=== PATIENT | male | born 1940 | race Caucasian/White ===

== ENCOUNTER 2017-02-13 09:20 | Outpatient (CLI) ==
[2015-07-19 13:55] VITALS: BMI 25.8
--- NOTE | 2017-02-13 10:44 | RS.MODBRM ---
Subjective Number of treatment sessions: 1 Date of Evaluation: 02/13/17 Date of Onset/Injury/Change in Status: 02/06/17 Surgery Performed?: No Treatment Diagnosis: Dysphagia Current Level of Function: The patient was referred for a modified barium swallow study due to increased difficulty swallowing. The patient reported that difficulty is occassional and is unable to discern if related to liquids or solids. The patient also reported that at times he has difficulty swallowing medications. The patient reports no weight loss or ability to maximize intake orally. Current Diet: Regular solids with thin liquids. Current Subjective/complaints:: The patient reports increased difficulty swallowing at times although unable to identify specific consistencies. Medical History Comments:: PMH is remarkable for GERD (although he stated that he does not currently take medication for treatment), HTN, Dyslipidemia, CVA, COPD, CHF Hx Home Medications: Crestor, Hydrocodone-acetaminophen, Tramadol, Aspirin Patient's Goals: To consume the highest level of diet without difficulty in order to optimize hydration/nutrition. Food Presented Thin Liquid: cup (Patient demonstrated swallow that was within functional limits with no aspiration or penetration noted. ) [place] Liquid: spoon (Not tested.) Honey Liquid: spoon (Not tested.) Pureed Solid: 1/2 teaspoon (The patient demonstrated swallow that is within functional limits. No aspiration or penetration noted. ) Cubed Soft Fruit: 1/2 teaspoon (Patient demonstrated swallow that was within functional limits. No aspiration or penetration noted. ) Other:: [place]-pt demonstrated penetration although cleared with double swallow Oral Phase - Oral Phase Labial Closure: WFL Bolus Formation: WFL Mastication: WFL Lingual Movement: WFL A/P Propulsion: WFL Premature Vallecular Pooling: None Oral Residue: Scant (The patient's oral phase is within functional limits. The patient is essentially edentulous and reports difficulty chewing at times but overall strength and ROM is within functional limits.) Pharyngeal Phase Base of Tongue: WFL Epiglottic Movement: WFL Laryngeal Excursion: WFL (The patient demonstrated 1 episode of penetration although cleared independently with double swallow. No aspiration observed throughout testing.) Vallecular Residue: None Pyriform Residue: None Summary and Recommendations - Recommendations PO Diet: Thin Liquids Comments:: The patient was referred for modified barium swallow study due to increased difficulty swallowing. The patient's oral [facility] exam revealed the patient to have strength and ROM that is within functional limits. It should be noted that the patient is essentially edentulous although he is able to adequately masticate and manipulate all consistencies tested. Throughout testing the patient did not demonstrate aspiration; however, did demonstrate 1 episode of penetration although cleared with independent double swallow. The patient's swallow abilities are safe to resume regular solids with thin liquids. The patient was educated on laryngeal strengthening exercises in order to maintain current strength and ROM. Exercises included [place], Shaker, and pushing from armed chair. The patient was also educated that the times when difficulty swallowing medications is noted he may try to put them in jelly to aid in swallowing. Further Therapy Indicated?: No Functional Reporting G Codes: [id number] Swallowing Severity Impairment Rationale: Swallow abilities at the time of this initial therapy encounter is documented as within functional limits
--- NOTE | 2017-02-13 10:45 | DI ---
EXAM: Modified barium swallow. History: Difficulty swallowing. Technique: Lateral video fluoroscopy was performed in conjunction with speech therapy using multiple consistencies to evaluate swallowing function. Findings / impression: No aspiration was observed. Penetration was observed with solid foods and th in liquids. Postsurgical changes of the cervical spine. Please see dedicated speech pathology repor t for additional details.
== END 2017-02-13 09:21 | disposition home or self-care (01) ==
LOC: RAD 09:20
PROVIDERS: ATTEND Internal Medicine
DX: R13.10 Dysphagia, unspecified (principal)

== ENCOUNTER 2017-09-21 16:57 | Emergency (ER) | payer OTHER ==
[2017-09-21 17:07] VITALS: BP 151/75; TEMP 98.5; BMI 26.3
[2017-09-21] MEDS ORDERED: SODIUM CHLORIDE 1,000 ML IV STA (17:13)
[2017-09-21] MEDS ORDERED: ZOFRAN 4 MG/2 ML IVP STA (17:13)
[2017-09-21] MEDS ORDERED: PROTONIX IV IVP STA (17:13)
--- NOTE | 2017-09-21 17:45 | ED.PDOC ---
General ED Provider: Dr. HARRIET WOODS-ER Chief Complaint: Nausea/Vomiting Stated Complaint: i got choked on a small piece of chicken--don been vomiting since--i dont think i have anything stuck Time Seen by Physician: 17:00 Mode of Arrival: Walk-In Information Source: Patient, Family Exam Limitations: No limitations Primary Care Provider: DANILO ROBERTSON Nursing and Triage Documentation Reviewed and Agree: Yes Reviewed sepsis parameters & appropriate labs ordered?: Yes System Inflammatory Response Syndrome: Not Applicable Sepsis Protocol: For patient's 13 years and over: Temp is 96.8 and below OR 101 and greater Pulse >90 BPM Resp >20/minute Acutely Altered Mental Status Are patient's symptoms suggestive of a new infection, such as: -Pneumonia -Skin, Soft Tissue -Endocarditis -UTI -Bone, Joint Infection -Implantable Device -Acute Abdominal Infection -Wound Infection -Meningitis -Blood Stream Catheter Infection -Unknown GI Complaint Exam - Vomiting/Diarrhea Complaint/Exam Onset/Duration: 6hrs Symptoms Are: Still present Episodes of Vomiting over last 24 Hours: 10 Episodes of Diarrhea Over Last 24 Hours: 0 Initial Severity: Mild Current Severity: Moderate Character of Vomiting: Reports: Non-bilious Aggravating: Reports: Food, Liquids Alleviating: Reports: None Associated Signs and Symptoms: Denies: Dizziness, Light-headedness, Melena, Hematemesis, Fever, Abdominal pain, Cramping Non-GI Risk Factors: Reports: None Abdominal Findings: Present: None [place] Respirations Present: No Differential Diagnoses: Cholecystitis, Cholelithiasis, Dehydration, PUD, Viral Gastroenteritis, Bacterial Gastroenteritis, Pancreatitis Review of Systems - Review Of Systems Constitutional: Reports: No symptoms Eyes: Reports: No symptoms Ears, Nose, Mouth, Throat: Reports: No symptoms Respiratory: Reports: No symptoms Cardiac: Reports: Chest pain GI: Reports: Nausea, Vomiting : Reports: No symptoms Musculoskeletal: Reports: No symptoms Skin: Reports: No symptoms Neurological: Reports: No symptoms Endocrine: Reports: No symptoms Hematologic/Lymphatic: Reports: No symptoms All Other Systems: Reviewed and Negative Past Medical History - Past Medical History Previously Healthy: No Endocrine: Reports: Dyslipidemia Cardiovascular: Reports: Hypertension Respiratory: Reports: None Hematological: Reports: None Gastrointestinal: Reports: None Genitourinary: Reports: None Neuro/Psych: Reports: CVA Musculoskeletal: Reports: None Cancer: Reports: None - Surgical History General Surgical History: Reports: Unknown - Family History Family History: Reports: Unknown - Social History Smoking Status: Former smoker Hx Substance Use: No Alcohol Screening: None Physical Exam - Physical Exam Appearance: Well-appearing, No pain distress, Well-nourished Pain Distress: Mild Eyes: GINO, EOMI, Conjunctiva clear ENT: Ears normal, Nose normal, Oropharynx normal Neck: Supple Respiratory: Airway patent, Breath sounds clear, Breath sounds equal, Respirations nonlabored Cardiovascular: RRR, Pulses normal, No rub, No murmur GI/: Soft, Nontender, No masses, Bowel sounds normal, No Organomegaly Musculoskeletal: Normal strength, ROM intact, No edema, No calf tenderness Skin: Warm, Dry, Normal color Neurological: Sensation intact, Motor intact, Reflexes intact, Cranial nerves intact, Alert, Oriented Psychiatric: Affect appropriate, Mood appropriate, Anxious Interpretation - EKG Interpretation Time of EKG #1: 17:45 Rate: Normal Rhythm: Sinus Ectopy: None [place]: NL ST Segment: Normal Interpretation: nsr Physician Notification - Case Discussed Physician Notified: dr cadet Time of Notification: 18:20 Critical Care Note - Critical Care Note Total Time (mins): 0 Course - Course Hematology/Chemistry: 09/21/17 17:26 09/21/17 17:26 Orders, Labs, Meds: Lab Review 09/21/17 09/21/17 17:26 17:26 WBC 11.19 H RBC 4.26 L Hgb 13.3 L Hct 38.6 L MCV 90.6 MCH 31.2 H MCHC 34.5 RDW Coeff of Edita 14.2 Plt Count 183 Immature Gran % (Auto) 0.3 Neut % (Auto) 67.6 Lymph % (Auto) 21.0 [place] % (Auto) 8.8 Eos % (Auto) 2.1 Baso % (Auto) 0.2 Immature Gran # (Auto) 0.0 Neut # (Auto) 7.6 H Lymph # (Auto) 2.4 [place] # (Auto) 1.0 Eos # (Auto) 0.2 Baso # (Auto) 0.0 Sodium 144 Potassium 3.9 Chloride 109 H Carbon Dioxide 26 Anion Gap 12.9 BUN 20 H Creatinine 1.48 H Estimated GFR (MDRD) 46.00 BUN/Creatinine Ratio 13.51 Glucose 134 H Calcium 10.3 H Total Bilirubin 0.4 AST 22 ALT 16 Alkaline Phosphatase 86 Total Creatine Kinase 146 CK-MB (CK-2) 1.8 CK-MB (CK-2) % 1.82962 Troponin I < 0.0100 Total Protein 7.2 Albumin 3.6 Globulin 3.6 Albumin/Globulin Ratio 1.00 Amylase 74 Lipase 10 Orders Category Date Time Status EKG-(ED ONLY) Stat CARDIO 09/21/17 17:12 Completed IV [ED IV/MEDIPORT/POWERPORT] .ONCE EMERGENCY 09/21/17 17:13 Active AMYLASE Stat LAB 09/21/17 17:26 Completed CBC W/ AUTO DIFF Stat LAB 09/21/17 17:26 Completed COMPREHENSIVE METABOLIC PANEL Stat LAB 09/21/17 17:26 Completed CREATINE KINASE Stat LAB 09/21/17 17:26 Completed LIPASE Stat LAB 09/21/17 17:26 Completed TROPONIN I Stat LAB 09/21/17 17:26 Completed 0.9 % Sodium Chloride [Saline Flush] MEDS 09/21/17 17:13 Ordered 1 syr IVF PRN PRN Glucagon,Human Recombinant [Glucagen] MEDS 09/21/17 18:04 Discontinued 1 mg IVP ONCE STA Ondansetron HCl/Pf [Zofran 4 mg/2 ml] MEDS 09/21/17 17:13 Discontinued 4 mg IVP ONCE STA Pantoprazole Sodium [Protonix IV] MEDS 09/21/17 17:13 Discontinued 40 mg IVP ONCE STA Sodium Chloride 0.9% [Sodium Chloride] 1,000 ml MEDS 09/21/17 17:[address] ABDOMEN/PELVIS WO CONTRAST Stat RADS 09/21/17 17:[address] CHEST W/O CONTRAST Stat RADS 09/21/17 17:13 Completed Medications Generic Name Dose Route Start Last Admin Trade Name Freq PRN Reason Stop Dose Admin Sodium Chloride 1 syr 09/21/17 17:13 09/21/17 17:28 Saline Flush IVF 1 syr PRN PRN Administration To flush IV Discontinued Medications Generic Name Dose Route Start Last Admin Trade Name Freq PRN Reason Stop Dose Admin Glucagon 1 mg 09/21/17 18:04 09/21/17 18:16 Glucagen IVP 09/21/17 18:05 1 mg ONCE STA Administration Sodium Chloride 1,000 mls @ 1,000 mls/hr 09/21/17 17:13 09/21/17 17:28 Sodium Chloride IV 09/21/17 18:12 1,000 mls/hr BOLUS STA Administration Ondansetron HCl 4 mg 09/21/17 17:13 09/21/17 17:28 Zofran 4 Mg/2 Ml IVP 09/21/17 17:14 4 mg ONCE STA Administration Pantoprazole Sodium 40 mg 09/21/17 17:13 09/21/17 17:28 Protonix Iv IVP 09/21/17 17:14 40 mg ONCE STA Administration despite meds he continues to have vomiting--he prefers to go to [facility] for this problem--) Vital Signs: Temp Pulse Resp BP Pulse Ox 09/21/17 16:58 98.5 F 103 H 20 151/75 H 95 Departure - Departure Time of Disposition: 18:20 Disposition: TSF SHORT-TRM HOSP Discharge Problem: [place] Qualifiers: Encounter type: initial encounter Qualified Code(s): T18.9XXA - Foreign body of alimentary tract, part unspecified, initial encounter Instructions: Esophageal Foreign Body (ED) Condition: Fair Pt referred to PMD for follow-up: Yes IPMP verified?: No Allergies/Adverse Reactions: Allergies Penicillins Adverse Reaction (Verified 09/21/17 17:06) Home Medications: Ambulatory Orders Allopurinol [Zyloprim] 300 mg PO DAILY 12/15/12 Aspirin [Aspirin EC] 325 mg PO DAILYWM 12/15/12 Lisinopril/Hydrochlorothiazide [Zestoretic 20-12.5 mg Tablet] 2 each PO DAILY Hydrocodone Bit/Acetaminophen [[place] 5-325] 1 each PO BID PRN 07/20/15 Rosuvastatin Calcium [Crestor] 10 mg PO BEDTIME 07/20/15 Transfer Form Completed: Yes Disposition Discussed With: Patient, Family
--- NOTE | 2017-09-21 17:57 | CT ---
Exam: CT chest without intravenous contrast. Comparison: Chest x-ray performed 09/29/2015. Reason for exam: Vomiting. Rule out bezor FINDINGS: No pneumothorax, pleural effusion, or focal consolidation. Air-fluid levels are seen within the esophagus with a small hiatal hernia. The heart is prominent in size. The aorta is normal in course and caliber. Atherosclerotic disease is seen within the aorta and distal arterial vasculature. Evaluation of the mediastinal lymph nodes is limited without intravenous contrast. Image interpretation is limited without intravenous contrast administration. Evaluation of the gastric contents is limited without oral contrast. Multiple hypodensities are seen within the hepatic parenchyma measuring up to 3.1 cm. The spleen, adrenal glands, and partially imaged pancreas appear grossly unremarkable. 7.2 cm right renal hypodensity is statistically a cyst. The right pulmonary artery, left pulmonary artery, and main pulmonary artery appear prominent in size although evaluation is limited by the lack of intravenous contrast. Degenerative disease is seen in the right shoulder. Operative changes are seen after anterior cervical discectomy and fusion. Degenerative disease is seen in the thoracic spine. Impression: 1. No pneumothorax, pleural effusion, or focal consolidation. 2. Air fluid levels in the esophagus with a small hiatal hernia. Imaging findings are consistent wi th reflux in the recumbent position. This finding raises consideration for aspiration during imaging . 3. Prominence of the main pulmonary artery, right pulmonary artery and left pulmonary artery incomple tely evaluated without intravenous contrast. Imaging findings raise consideration for pulmonary hype rtension. 4. Cardiomegaly. 5. Evaluation of the stomach is limited without oral contrast.
[2017-09-21] MEDS ORDERED: GLUCAGEN IVP STA (18:04)
--- NOTE | 2017-09-21 18:07 | CT ---
EXAM: CT abdomen pelvis without contrast HISTORY: Vomiting after eating chicken COMPARISON: None TECHNIQUE: CT abdomen pelvis performed without intravenous contrast. Coronal and sagittal reformatt ed images obtained. FINDINGS: Please refer to separate port CT chest regarding findings in the lower chest. No free air . No acute abnormalities of the bones. Partial fusion bilateral sacroiliac joints. Right hip arthr oplasty. Degenerative change in the spine. Evaluation organ parenchyma limited without contrast. M ultiple liver cysts and additional sub centimeter hypodensities too small to characterize. Gallbladd er appears normal. Pancreas appears normal. Spleen appears normal. Adrenals appear normal. There is a right renal cyst with minimal peripheral calcification and measuring fluid attenuation. Cyst me asures 7.0 cm. Left renal parapelvic cyst noted. No hydronephrosis or nephrolithiasis. Bladder obsc ured secondary to streak artifact from hip arthroplasty. Prostate mildly enlarged. Small fat-contai luzmaria periumbilical hernia. Small fat-containing right inguinal hernia. Fluid in the distal esophagus . Small to moderate hiatal hernia containing a nonspecific particulate/debris. No dilated loops s mall bowel. Appendix appears normal. There are diverticula in the terminal ileum and throughout the colon. Portions of the pelvis obscured secondary to streak artifact from hip arthroplasty. No lymp hadenopathy or ascites identified. Small fat-containing periumbilical hernia. Aorta normal in calibe r with mild to moderate atherosclerosis.. Scattered nonspecific mesenteric calcifications present. IMPRESSION: 1. Fluid in the distal esophagus. Small to moderate hiatal hernia containing nonspecific particulat e/debris. 2. Terminal ileal and colonic diverticulosis. 3. Bilateral renal cysts including a mildly complicated right renal cyst. Recommend correlation wit h non-emergent ultrasound. 4. Mildly enlarged prostate.
== END 2017-09-21 18:42 | disposition short-term general hospital (02) ==
LOC: ED 16:57
DX: T18.9XXA Foreign body of alimentary tract, part unspecified, initial encounter (principal); R11.2 Nausea with vomiting, unspecified; R07.9 Chest pain, unspecified; E78.5 Hyperlipidemia, unspecified; I10 Essential (primary) hypertension; Z79.899 Other long term (current) drug therapy; Z86.73 Personal history of transient ischemic attack (TIA), and cerebral infarction without residual deficits
CPT/HCPCS: 36415; 80053; 82150; 82550; 82553; 83690; 84484; 85025; 93005; 93010; 96361; 96374; 96375; 99285

== ENCOUNTER 2021-12-04 13:34 | Inpatient (IN) ==
[2021-12-04 13:49] LABS: BORDETELLA PARAPERTUSSIS (PCR) NOT DETECTED (NOT DETECT); BORDETELLA PERTUSSIS (PCR) NOT DETECTED (NOT DETECT); CHLAMYDIA PNEUMONIAE (PCR) NOT DETECTED (NOT DETECT); CORONAVIRUS 229E (PCR) NOT DETECTED (NOT DETECT); CORONAVIRUS HKU1 (PCR) NOT DETECTED (NOT DETECT); CORONAVIRUS NL63 (PCR) NOT DETECTED (NOT DETECT); CORONAVIRUS OC43 (PCR) NOT DETECTED (NOT DETECT); HUMAN METAPNEUMOVIRUS (PCR) NOT DETECTED (NOT DETECT); HUMAN RHINOVIRUS/ENTEROV (PCR) NOT DETECTED (NOT DETECT); INFLUENZA B (PCR) NOT DETECTED (NOT DETECT); MYCOPLASMA PNEUMONIAE (PCR) NOT DETECTED (NOT DETECT); PARAINFLUENZA VIRUS 1 (PCR) NOT DETECTED (NOT DETECT); PARAINFLUENZA VIRUS 2 (PCR) NOT DETECTED (NOT DETECT); PARAINFLUENZA VIRUS 3 (PCR) NOT DETECTED (NOT DETECT); PARAINFLUENZA VIRUS 4 (PCR) NOT DETECTED (NOT DETECT); RESPIRATORY SYNCYTIAL V (PCR) NOT DETECTED (NOT DETECT); SARS_COV_2 (PCR) NOT DETECTED (NOT DETECT)
[2021-12-04 14:37] LABS: ADENOVIRUS (PCR) NOT DETECTED (NOT DETECT)
[2021-12-04] MEDS ORDERED: ATROPINE SULFATE PFS IVP PRN (15:21)
[2021-12-04] MEDS ORDERED: NITROSTAT SL PRN (15:21)
[2021-12-04] MEDS ORDERED: TYLENOL PO PRN (15:21)
[2021-12-04] MEDS ORDERED: LASIX IVP ONE (15:27)
[2021-12-04 15:28] VITALS: BMI 26.9
[2021-12-04] MEDS ORDERED: DECADRON IM ONE (15:29)
[2021-12-04 15:43] LABS: BASOPHILS % (AUTO) 0.3 % (0.0-3.0); EOSINOPHILS # (AUTO) 0.1 K/ul (0.0-0.7); EOSINOPHILS % (AUTO) 2.4 % (0.0-7.0); HEMOGLOBIN 12.3 g/dl (14.0-18.0); IMMATURE GRANULOCYTE % (AUTO) 0.2 % (0.0-5.0); LYMPHOCYTES # (AUTO) 1.4 K/uL (0.60-3.4); LYMPHOCYTES % (AUTO) 23.4 (10.0-50.0); MEAN CORPUSCULAR HEMOGLOBIN 30.3 pg (27.0-31.0); MEAN CORPUSCULAR HGB CONC 32.4 (31.8-35.4); MEAN CORPUSCULAR VOLUME 93.6 fl (80.0-94.0); MONOCYTES # (AUTO) 0.5 K/uL (0.4-2.0); MONOCYTES % (AUTO) 8.6 (0-10); NEUTROPHILS # (AUTO) 3.8 K/ul (2.0-6.9); NEUTROPHILS % (AUTO) 65.1 % (42.2-75.2); PLATELET COUNT 171 10^3/uL (140-440); RDW COEFFICIENT OF VARIATION 14.8 % (11.6-14.8); RED BLOOD COUNT 4.06 10^6/ul (4.70-6.10)
[2021-12-04 15:55] LABS: ABG O2 HGB 93.9 % (95-100); ABG PH 7.45 (7.35-7.45); BEecf -1.1 (-2.0-3.0); COHb 1.8 (0.5-1.5); HCO3 22.9 (21-28); MetHb 1.2 (0-1.5); TCO2 23.9 (19-24); tHb 12.4 g/dl (11.7-17.4)
[2021-12-04 15:55] LABS: ALANINE AMINOTRANSFERASE 17.2 U/L (0-50); ALBUMIN 3.95 g/dL (3.5-5.0); ALKALINE PHOSPHATASE 89.5 U/L (56-119); ASPARTATE AMINO TRANSFERASE 24.2 U/L (17-59); BILIRUBIN,TOTAL 0.37 mg/dL (0.2-1.3); BLOOD UREA NITROGEN 17.9 mg/dL (9-20); CALCIUM 9.72 mg/dL (8.4-10.2); CARBON DIOXIDE 25.2 mmol/L (22-30.0); CHLORIDE 105.5 mmol/L (98-107); CREATINE KINASE 64.3 U/L (55-170); CREATININE 1.21 mg/dL (0.60-1.10); GLUCOSE 176.3 mg/dL (74-106); POTASSIUM 3.77 mmol/L (3.5-5.1); SODIUM 139.8 mmol/L (134.5-145); TOTAL PROTEIN 6.95 g/dL (6.3-8.2)
[2021-12-04 16:07] LABS: TROPONIN I 0.02 ng/ml (0.0000-0.120)
[2021-12-04 16:20] LABS: BILIRUBIN,URINE Negative (NEGATIVE); CLARITY,URINE Clear (CLEAR); COLOR,URINE Yellow (YELLOW); GLUCOSE, URINE (UA) Negative (NEGATIVE); KETONES,URINE Negative (NEGATIVE); LEUKOCYTE ESTERASE ,URINE Negative (NEGATIVE); NITRITE,URINE Negative (NEGATIVE); PROTEIN,URINE Negative (NEGATIVE); URINE, BLOOD Negative (NEGATIVE); UROBILINOGEN,URINE 0.2 (0.2)
[2021-12-04 16:26] LABS: THYROID STIMULATING HORMONE 1.32 uIU/L (0.465-4.68)
[2021-12-04] MEDS: JARDIANCE PO SCH (16:34)
[2021-12-04] MEDS: ZYLOPRIM PO SCH (16:35)
[2021-12-04] MEDS: NORCO 5-325 PO SCH ×2 (16:35→20:25)
--- NOTE | 2021-12-04 16:44 | DI ---
EXAM: PA and lateral views of the chest HISTORY: Shortness of breath COMPARISON: Chest x-ray 09/29/2015 FINDINGS: The cardiomediastinal silhouette is unchanged with atherosclerotic disease. There is no p neumothorax or pleural effusion. There is ground-glass in the right lung base. There is no consolid ation, nodule or mass. Lungs are hyperinflated. The osseous structures demonstrate degenerative dis ease. IMPRESSION: 1. Minimal ground-glass in the right lung base may represent small airways thickening/inflammation v ersus chronic process. 2. Hyperinflated lungs suggestive of chronic obstructive pulmonary disease.
[2021-12-04] MEDS: CRESTOR PO SCH (20:24)
[2021-12-04] MEDS: NORVASC PO SCH (20:25)
[2021-12-04] MEDS: ENTRESTO 24 MG-26 MG TABLET PO SCH (20:25)
[2021-12-04] MEDS ORDERED: LOPRESSOR PO SCH (21:00)
[2021-12-04] MEDS ORDERED: ULTRAM PO PRN (21:00)
[2021-12-04] MEDS ORDERED: NORCO 5-325 PO STA (23:28)
[2021-12-05 00:07] LABS: TROPONIN I 0.016 ng/ml (0.0000-0.120)
[2021-12-05 00:08] LABS: CREATINE KINASE 73.7 U/L (55-170)
[2021-12-05 04:56] LABS: BASOPHILS % (AUTO) 0.2 % (0.0-3.0); HEMATOCRIT 41.4 % (42.0-52.0); HEMOGLOBIN 13.5 g/dl (14.0-18.0); IMMATURE GRANULOCYTE % (AUTO) 0.4 % (0.0-5.0); LYMPHOCYTES % (AUTO) 18.3 (10.0-50.0); MEAN CORPUSCULAR HGB CONC 32.6 (31.8-35.4); MONOCYTES # (AUTO) 0.3 K/uL (0.4-2.0); MONOCYTES % (AUTO) 5.7 (0-10); NEUTROPHILS # (AUTO) 4.1 K/ul (2.0-6.9); NEUTROPHILS % (AUTO) 75.4 % (42.2-75.2); PLATELET COUNT 216 10^3/uL (140-440); RDW COEFFICIENT OF VARIATION 14.6 % (11.6-14.8); WHITE BLOOD COUNT 5.41 K/ul (4.2-10.2)
[2021-12-05 05:09] LABS: ALANINE AMINOTRANSFERASE 17.5 U/L (0-50); ALBUMIN 4.38 g/dL (3.5-5.0); ALKALINE PHOSPHATASE 96.2 U/L (56-119); ASPARTATE AMINO TRANSFERASE 24.8 U/L (17-59); BILIRUBIN,TOTAL 0.63 mg/dL (0.2-1.3); BLOOD UREA NITROGEN 17.4 mg/dL (9-20); CALCIUM 10.29 mg/dL (8.4-10.2); CARBON DIOXIDE 26.4 mmol/L (22-30.0); CHLORIDE 101.1 mmol/L (98-107); CREATININE 1.04 mg/dL (0.60-1.10); GLUCOSE 169.6 mg/dL (74-106); POTASSIUM 3.9 mmol/L (3.5-5.1); TOTAL PROTEIN 7.62 g/dL (6.3-8.2)
[2021-12-05] MEDS: LASIX TAB PO SCH (05:36)
[2021-12-05] MEDS ORDERED: LASIX IVP SCH (06:30)
--- NOTE | 2021-12-05 09:04 | PCM.PROG ---
Attending Provider: ATTENDING PROVIDER: Dr. DANILO ROBERTSON This patient is seen with Wendie Morrison, Nurse Practitioner. DATE OF SERVICE: 12/05/21 SUBJECTIVE: This 81 year old /WHITE M was hospitalized 12/04/21. Heart rate has been irregular. EKG showed possible flutter possible and possible atrial fibrillation on telemetry. Heart rate has been 90s to 110s. started Entresto yesterday. Renal function and Potassium are OK today. REVIEW OF SYSTEMS: CONSTITUTIONAL: No night sweats. No fatigue, malaise, lethargy. No fever or chills. HEENT: Eyes: No visual changes. No eye pain. No eye discharge. ENT: No runny nose. No epistaxis. No sinus pain. No odynophagia. No congestion. RESPIRATORY: No cough, no congestion. No hemoptysis. Shortness of breath. CARDIOVASCULAR: No angina symptoms. No CHF symptoms. No atypical chest pain for CAD. Palpitations. No orthopnea.. GASTROINTESTINAL: No abdominal pain. No nausea or vomiting. No diarrhea or constipation. No hematemesis. No hematochezia. GENITOURINARY: No urgency. No frequency. No dysuria. No hematuria. No obstructive symptoms. No discharge. No pain. No significant abnormal bleeding. MUSCULOSKELETAL: No musculoskeletal pain; no joint swelling. NEUROLOGICAL: Awake, alert, oriented to time, place and person. No headache. No neck pain. No syncope. No seizures. No dizziness. PSYCHIATRIC: Not anxious. No depression. No suicidal thoughts. No homicidal thoughts. SKIN: No rash. No lesions. No wounds. ENDOCRINE: No unexplained weight loss. No weight gain. HEMATOLOGIC/LYMPHATIC: No anemia. No purpura. No petechiae. No prolonged or excessive bleeding. No palpable lymph nodes. PHYSICAL EXAMINATION: GENERAL: The patient is awake, alert and oriented, sitting in bed in no distress. VITAL SIGNS: Temperature 97.8 F, Pulse 82, Respiratory Rate 16, BP 138/83, Pulse Ox 96% HEENT: Head normocephalic, atraumatic. Eyes: Extraocular muscles are intact. Pupils are equal, round and reactive to light and accommodation. Ears: No lesions. Nose appeared normal. Throat: No exudate or erythema. NECK: Supple. No JVD, no carotid bruit. No lymphadenopathy or thyromegaly. LUNGS: Clear to auscultation. Percussion note normal. Chest symmetrical. HEART: S1, S2, no S3. Grade I murmurs. Irregular heart rate. No cyanosis or clubbing. No ascites. Pulses: Dorsalis pedis and posterior tibial pulses +1 to +2 both sides. ABDOMEN: Soft. Non-tender. Bowel sounds active. No CVA tenderness. No mass felt. EXTREMITIES: Trace bilateral leg edema. Full range of motion of all extremities, equal. NEUROLOGIC: No focal deficit. Cranial nerves II through XII are grossly intact. No headache. No double vision. SKIN: Not dry. Intact. Turgor-normal. LYMPHATIC: No palpable lymph nodes/no lymphedema. MUSCULOSKELETAL: Normal joints with no swelling. Muscle tone is normal. LAB REVIEW: 12/05/21 04:35 12/05/21 04:35 12/05/21 04:35: Sodium 138.0, Potassium 3.90, Chloride 101.1, Carbon Dioxide 26.4, Anion Gap 14.40, BUN 17.4, Creatinine 1.04, Estimated GFR (MDRD) 69.00, BUN/Creatinine Ratio 16.73, Glucose 169.6 H, Calcium 10.29 H, Total Bilirubin 0.63, AST 24.8, ALT 17.5, Alkaline Phosphatase 96.2, Total Protein 7.62, Albumin 4.38, Globulin 3.24, Albumin/Globulin Ratio 1.35 12/05/21 04:35: WBC 5.41, RBC 4.50 L, Hgb 13.5 L, Hct 41.4 L, MCV 92.0, MCH 30.0, MCHC 32.6, RDW Coeff of Edita 14.6, Plt Count 216, Immature Gran % (Auto) 0.4, Neut % (Auto) 75.4 H, Lymph % (Auto) 18.3, [place] % (Auto) 5.7, Eos % (Auto) 0.0, Baso % (Auto) 0.2, Neut # (Auto) 4.1, Lymph # (Auto) 1.0, [place] # (Auto) 0.3 L, Eos # (Auto) 0.0, Baso # (Auto) 0.0, Immature Gran # (Auto) 0.0 12/04/21 23:35: Total Creatine Kinase 73.7, Troponin I 0.016 12/04/21 16:09: Urine Color Yellow, Urine Clarity Clear, Urine pH 6.0, Ur Specific [place] >=1.030, Urine Protein Negative, Urine Glucose (UA) Negative, Urine Ketones Negative, Urine Blood Negative, Urine Nitrite Negative, Urine Bilirubin Negative, Urine Urobilinogen 0.2, Ur Leukocyte Esterase Negative 12/04/21 15:35: Puncture Site Rr, Base Excess -1.1, O2 Saturation 95.0, ABG pH 7.45, ABG pCO2 33.0 L, ABG pO2 72.0 L, ABG HCO3 22.9, ABG Total CO2 23.9, Sky Test Pos, Hemoglobin 1.2, Oxyhemoglobin 93.9 L, Carboxyhemoglobin 1.8 H, Total Hemoglobin 12.4, FiO2 % 21.0 12/04/21 15:32: Sodium 139.8, Potassium 3.77, Chloride 105.5, Carbon Dioxide 25.2, Anion Gap 12.87, BUN 17.9, Creatinine 1.21 H, Estimated GFR (MDRD) 58.00, BUN/Creatinine Ratio 14.79, Glucose 176.3 H, Calcium 9.72, Total Bilirubin 0.37, AST 24.2, ALT 17.2, Alkaline Phosphatase 89.5, Total Creatine Kinase 64.3, Troponin I 0.020, Total Protein 6.95, Albumin 3.95, Globulin 3.00, Albumin/Globulin Ratio 1.31, TSH 1.320 12/04/21 15:32: Free T4 1.41 12/04/21 15:32: WBC 5.80, RBC 4.06 L, Hgb 12.3 L, Hct 38.0 L, MCV 93.6, MCH 30.3, MCHC 32.4, RDW Coeff of Edita 14.8, Plt Count 171, Immature Gran % (Auto) 0.2, Neut % (Auto) 65.1, Lymph % (Auto) 23.4, [place] % (Auto) 8.6, Eos % (Auto) 2.4, Baso % (Auto) 0.3, Neut # (Auto) 3.8, Lymph # (Auto) 1.4, [place] # (Auto) 0.5, Eos # (Auto) 0.1, Baso # (Auto) 0.0, Immature Gran # (Auto) 0.0 12/04/21 13:45: Adenovirus (PCR) Not detected, B. pertussis DNA (PCR) Not detected, B.parapertussis DNA PCR Not detected, C. pneumoniae DNA (PCR) Not detected, Coronavirus OC43 (PCR) Not detected, Coronavirus HKU1 (PCR) Not detected, Coronavirus 229E (PCR) Not detected, Coronavirus NL63 (PCR) Not detected, Human Metapneumovir PCR Not detected, Influenza Type A (PCR) Not detected, Influenza B (RT-PCR) Not detected, M. pneumoniae (PCR) Not detected, Parainfluenza 1 (PCR) Not detected, Parainfluenza 2 (PCR) Not detected, Parainfluenza 3 (PCR) Not detected, Parainfluenza 4 (PCR) Not detected, RSV (PCR) Not detected, Entero/Rhino (PCR) Not detected, SARS-CoV-2 (PCR) Not detected ASSESSMENT: Please see below. 1. Acute CHF 2. New onset arrhythmia 3. Shortness of breath PLAN: 1. Monitor I&O 2. CT of chest with and without 3. Increase Metoprolol to 50mg BID 4. 24 hour Holter Monitor after CT 5. Start Eliquis 5mg BID 6. Discontinue Aspirin 7. ProBNP 8. Daily Weights Plan and coordination of the patient's care discussed in the presence of Loading Dock Helper and nurse. SCRIBED BY: Michelet FREITAS scribed while in presence of service performed by Dr. Robertson/Wendie Morrison APRN on 12/05/21 ([id number])
--- NOTE | 2021-12-05 10:10 | HP ---
DATE OF SERVICE: 12/04/21 REASON FOR HOSPITALIZATION/HISTORY OF PRESENT ILLNESS: Lost 4 pounds. No signs or symptoms of CHF/CAD/COVID. Worsening shortness of breath/ Leg swelling, fatigue and palpitations times 2-3 weeks. PAST MEDICAL HISTORY: CHF Diabetes Mellitus type II Hypertension Dyslipidemia CVA '99 Sinus tachycardia Chronic kidney disease 2/3 Gout PAST SURGICAL HISTORY: Right hip replacement Plate in neck Hernia surgery Vasectomy REVIEW OF SYSTEMS: CONSTITUTIONAL: No fever, Fatigue. HEENT: No sinus drainage, no sore throat. RESPIRATORY: No cough, no congestion. CARDIOVASCULAR: No atypical chest pain for coronary artery disease. No angina, CHF symptoms. Palpitations and shortness of breath. GASTROINTESTINAL: No melena or abdominal pain. No GERD. GENITOURINARY: No hematuria, no prostatism, no polyuria. COMMUNITY ORGANIZATION WORKER: No blackout, Dizziness, no headache, no double vision. MUSCULOSKELETAL: Osteoarthritis pain, no joint swelling. ENDOCRINE: No weight loss, no weight gain. SKIN: Not dry, no rash. PSYCHIATRIC: Anxious, no depression, no suicidal thoughts, no homicidal thoughts. SOCIAL HISTORY: Marital Status: . Alcohol Usage: No. Tobacco Usage: No. FAMILY HISTORY: Father Mother Brother 8 Sister 3 MEDICATIONS: Metformin 500mg daily Norvasc 5mg at HS Crestor 40mg PO daily Allopurinol 300mg daily Aspirin 325mg PO daily Pitman 5-325mg BID Tramadol 500mg TID K-tab 10meq Losartan 50mg daily Lasix 20mg daily Jardiance 25mg daily Metoprolol 25mg BID ALLERGIES: Fish Oil PHYSICAL EXAMINATION: V/S: Pulse 83, blood pressure 142/78, temperature 97.8, oxygen saturation 92%. GENERAL APPEARANCE: Oriented times three. HEENT: Normal. NECK: No JVP, no bruits. RESPIRATORY: Lungs are clear. CARDIOVASCULAR: S1, S2, no S3, no murmur. Irregular. No cyanosis, clubbing. No ascites. GI/ABDOMEN: No tenderness. Bowel sounds are active. EXTREMITIES: +1 pitting edema, pulses +1, equal. COMMUNITY ORGANIZATION WORKER: Deep tendon reflexes, sensory, motor and gait all normal. RECTAL/PELVIC/PROSTATE: 01/10 (1.28) Dr. Land 12/07/. EGD 10/07. LABS: Echo showed ejection fraction 35-40%. Paradoxical septal motion. RV cavity and LA cavity enlargement. ASSESSMENT: 1. CHF 2. Shortness of breath 3. Palpitations 4. Sinus tachycardia 5. Recurrent gout 6. Chronic kidney disease 2/3 7. Polyarthritis 8. Right knee osteoarthritis 9. Esophageal dilatation 10/07 10.Right total hip replacement, [place] 11.C-spine surgery 12. Hypertension 13.Dyslipidemia 14.Left cheek basal, Dr. Sotelo 15. 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 Admit 2. Routine telemetry orders 3. IV Lasix 20mg now 4. Entresto 24-26 PO BID 5. TSH, T4 6. Amlodipine 5mg PO at HS daily 7. Crestor 40mg Po daily 8. Allopurinol 200mg PO daily 9. Pitman 5/325mg PO BID for pain 10.Tramadol 50mg PO TID for pain 11.Metoprolol 25mg PO BID 12.Lasix 20mg PO daily AM 13.Elevate legs 14.ABG today 15.Jardiance 25mg PO daily 16.1cc Decadron IM TIME SPENT: More than 70 minutes. MTDD
[2021-12-05] MEDS: ZYLOPRIM PO SCH (12:13)
[2021-12-05] MEDS: MICRO-K CAP PO SCH (12:13)
[2021-12-05] MEDS: JARDIANCE PO SCH (12:13)
[2021-12-05] MEDS: LOPRESSOR PO SCH ×2 (12:14→20:51)
[2021-12-05] MEDS: ENTRESTO 24 MG-26 MG TABLET PO SCH ×2 (12:14→20:52)
[2021-12-05] MEDS: ELIQUIS PO SCH ×2 (12:15→20:52)
[2021-12-05] MEDS: NORCO 5-325 PO SCH ×2 (12:16→20:52)
--- NOTE | 2021-12-05 12:35 | CT ---
EXAM: CT chest with and without contrast HISTORY: Shortness of breath COMPARISON: CT chest 09/21/2017 TECHNIQUE: Serial axial images of the chest were obtained after and before 100 ml of Omnipaque IV co ntrast was administered. These were obtained from the lung apices to the upper abdomen. FINDINGS: The thyroid is normal. Visualized vessels demonstrate mild atherosclerotic disease. Ther e is prominence of the pulmonary arteries. The heart is enlarged in size without pericardial effusio n. There is no mediastinal, hilar or axillary pathologically enlarged lymph nodes. There is no pneumothorax or pleural effusion. There is dependent atelectasis bilaterally. There is no consolidation, nodule or mass. The airways are patent. Limited views of the soft tissues demonstrate multiple hepatic cysts. Multiple renal cysts are pres ent. There is a small hiatal hernia. The osseous structures demonstrate degenerative change. IMPRESSION: 1. Dependent atelectasis with no acute cardiopulmonary process. 2. Hepatic cysts and renal cysts. 3. Small hiatal hernia. 4. Cardiomegaly with enlarged pulmonary arteries suggestive of pulmonary arterial hypertension. All CT scans are performed using dose optimization techniques as appropriate to the performed exam an d include at least one of the following: Automated exposure control, adjustment of the mA and/or kV according t o size, and the use of iterative reconstruction technique.
[2021-12-05] MEDS: CRESTOR PO SCH (20:52)
[2021-12-05] MEDS: NORVASC PO SCH (20:53)
[2021-12-06 05:30] LABS: BASOPHILS % (AUTO) 0.2 % (0.0-3.0); EOSINOPHILS # (AUTO) 0.1 K/ul (0.0-0.7); HEMATOCRIT 42.6 % (42.0-52.0); HEMOGLOBIN 13.7 g/dl (14.0-18.0); IMMATURE GRANULOCYTE % (AUTO) 0.4 % (0.0-5.0); LYMPHOCYTES # (AUTO) 2.4 K/uL (0.60-3.4); LYMPHOCYTES % (AUTO) 29.4 (10.0-50.0); MEAN CORPUSCULAR HEMOGLOBIN 29.8 pg (27.0-31.0); MEAN CORPUSCULAR HGB CONC 32.2 (31.8-35.4); MEAN CORPUSCULAR VOLUME 92.8 fl (80.0-94.0); MONOCYTES # (AUTO) 0.8 K/uL (0.4-2.0); MONOCYTES % (AUTO) 10.1 (0-10); NEUTROPHILS # (AUTO) 4.8 K/ul (2.0-6.9); NEUTROPHILS % (AUTO) 58.9 % (42.2-75.2); PLATELET COUNT 220 10^3/uL (140-440); RDW COEFFICIENT OF VARIATION 14.6 % (11.6-14.8); RED BLOOD COUNT 4.59 10^6/ul (4.70-6.10); WHITE BLOOD COUNT 8.22 K/ul (4.2-10.2)
[2021-12-06 05:46] LABS: ALANINE AMINOTRANSFERASE 16.9 U/L (0-50); ALBUMIN 4.05 g/dL (3.5-5.0); ALKALINE PHOSPHATASE 91.5 U/L (56-119); BILIRUBIN,TOTAL 0.52 mg/dL (0.2-1.3); BLOOD UREA NITROGEN 22.7 mg/dL (9-20); CALCIUM 9.99 mg/dL (8.4-10.2); CARBON DIOXIDE 27.8 mmol/L (22-30.0); CHLORIDE 103.4 mmol/L (98-107); CREATININE 1.21 mg/dL (0.60-1.10); POTASSIUM 3.75 mmol/L (3.5-5.1); SODIUM 139.3 mmol/L (134.5-145); TOTAL PROTEIN 7.15 g/dL (6.3-8.2)
[2021-12-06] MEDS: LASIX TAB PO SCH (05:49)
[2021-12-06] MEDS: ZYLOPRIM PO SCH (08:37)
[2021-12-06] MEDS: ENTRESTO 24 MG-26 MG TABLET PO SCH ×2 (08:37→20:19)
[2021-12-06] MEDS: LOPRESSOR PO SCH ×2 (08:38→20:19)
[2021-12-06] MEDS: ELIQUIS PO SCH ×2 (08:38→20:20)
[2021-12-06] MEDS: MICRO-K CAP PO SCH (08:38)
[2021-12-06] MEDS: JARDIANCE PO SCH (08:45)
[2021-12-06] MEDS: NORCO 5-325 PO SCH (20:19)
[2021-12-06] MEDS: NORVASC PO SCH (20:20)
[2021-12-06] MEDS: CRESTOR PO SCH (20:20)
[2021-12-07 05:14] VITALS: BP 131/76; TEMP 97.6
[2021-12-07 05:26] LABS: BASOPHILS % (AUTO) 0.3 % (0.0-3.0); EOSINOPHILS # (AUTO) 0.1 K/ul (0.0-0.7); EOSINOPHILS % (AUTO) 1.7 % (0.0-7.0); HEMATOCRIT 41.1 % (42.0-52.0); HEMOGLOBIN 13.5 g/dl (14.0-18.0); IMMATURE GRANULOCYTE % (AUTO) 0.2 % (0.0-5.0); LYMPHOCYTES # (AUTO) 2.1 K/uL (0.60-3.4); LYMPHOCYTES % (AUTO) 34.7 (10.0-50.0); MEAN CORPUSCULAR HEMOGLOBIN 30.1 pg (27.0-31.0); MEAN CORPUSCULAR HGB CONC 32.8 (31.8-35.4); MEAN CORPUSCULAR VOLUME 91.7 fl (80.0-94.0); MONOCYTES # (AUTO) 0.6 K/uL (0.4-2.0); MONOCYTES % (AUTO) 10.7 (0-10); NEUTROPHILS # (AUTO) 3.1 K/ul (2.0-6.9); NEUTROPHILS % (AUTO) 52.4 % (42.2-75.2); PLATELET COUNT 221 10^3/uL (140-440); RDW COEFFICIENT OF VARIATION 14.6 % (11.6-14.8); RED BLOOD COUNT 4.48 10^6/ul (4.70-6.10); WHITE BLOOD COUNT 5.91 K/ul (4.2-10.2)
[2021-12-07 05:44] LABS: ALANINE AMINOTRANSFERASE 13.8 U/L (0-50); ALBUMIN 3.64 g/dL (3.5-5.0); ALKALINE PHOSPHATASE 84.7 U/L (56-119); ASPARTATE AMINO TRANSFERASE 21.8 U/L (17-59); BILIRUBIN,TOTAL 0.4 mg/dL (0.2-1.3); BLOOD UREA NITROGEN 24.7 mg/dL (9-20); CALCIUM 9.62 mg/dL (8.4-10.2); CARBON DIOXIDE 25.3 mmol/L (22-30.0); CHLORIDE 106.1 mmol/L (98-107); CREATININE 1.29 mg/dL (0.60-1.10); GLUCOSE 122.6 mg/dL (74-106); POTASSIUM 3.34 mmol/L (3.5-5.1); SODIUM 139.7 mmol/L (134.5-145); TOTAL PROTEIN 6.51 g/dL (6.3-8.2)
[2021-12-07] MEDS: LASIX TAB PO SCH (05:48)
[2021-12-07] MEDS: ENTRESTO 24 MG-26 MG TABLET PO SCH (09:13)
[2021-12-07] MEDS: LOPRESSOR PO SCH (09:13)
[2021-12-07] MEDS: MICRO-K CAP PO SCH (09:13)
[2021-12-07] MEDS: ZYLOPRIM PO SCH (09:13)
[2021-12-07] MEDS: JARDIANCE PO SCH (09:14)
[2021-12-07] MEDS: ELIQUIS PO SCH (09:14)
--- NOTE | 2021-12-07 09:48 | PCM.PROG ---
Attending Provider: ATTENDING PROVIDER: Dr. DANILO ROBERTSON This patient is seen with Wendie Morrison, Nurse Practitioner. DATE OF SERVICE: 12/07/21 SUBJECTIVE: This 81 year old /WHITE M was hospitalized 12/04/21. The has been up and about in the room. Hgb is stable. She was started on Eliquis. Renal function is stable after initiation of Entresto. The patient is ready for discharge. REVIEW OF SYSTEMS: CONSTITUTIONAL: No night sweats. No fatigue, malaise, lethargy. No fever or chills. Weakness. HEENT: Eyes: No visual changes. No eye pain. No eye discharge. ENT: No runny nose. No epistaxis. No sinus pain. No odynophagia. No congestion. RESPIRATORY: No cough, no congestion. No hemoptysis. Shortness of breath. CARDIOVASCULAR: No angina symptoms. No CHF symptoms. No atypical chest pain for CAD. Palpitations. No orthopnea.. GASTROINTESTINAL: No abdominal pain. No nausea or vomiting. No diarrhea or constipation. No hematemesis. No hematochezia. GENITOURINARY: No urgency. No frequency. No dysuria. No hematuria. No obstructive symptoms. No discharge. No pain. No significant abnormal bleeding. MUSCULOSKELETAL: No musculoskeletal pain; no joint swelling. NEUROLOGICAL: Awake, alert, oriented to time, place and person. No headache. No neck pain. No syncope. No seizures. No dizziness. PSYCHIATRIC: Not anxious. No depression. No suicidal thoughts. No homicidal tho ughts. SKIN: No rash. No lesions. No wounds. ENDOCRINE: No unexplained weight loss. No weight gain. HEMATOLOGIC/LYMPHATIC: No anemia. No purpura. No petechiae. No prolonged or excessive bleeding. No palpable lymph nodes. PHYSICAL EXAMINATION: GENERAL: The patient is awake, alert and oriented, sitting in bed in no distress. VITAL SIGNS: Temperature 97.6 F, Pulse 77, Respiratory Rate 18, BP 131/76, Pulse Ox 95% HEENT: Head normocephalic, atraumatic. Eyes: Extraocular muscles are intact. Pupils are equal, round and reactive to light and accommodation. Ears: No lesions. Nose appeared normal. Throat: No exudate or erythema. NECK: Supple. No JVD, no carotid bruit. No lymphadenopathy or thyromegaly. LUNGS: Diminished breath sounds. Clear to auscultation. Percussion note normal. Chest symmetrical. HEART: Irregular heart rate. S1, S2, no S3. No murmurs. No cyanosis or clubbing. No ascites. Pulses: Dorsalis pedis and posterior tibial pulses +1 to +2 both sides. ABDOMEN: Soft. Non-tender. Bowel sounds active. No CVA tenderness. No mass felt. EXTREMITIES: No edema. Full range of motion of all extremities, equal. NEUROLOGIC: No focal deficit. Cranial nerves II through XII are grossly intact. No headache. No double vision. SKIN: Not dry. Intact. Turgor-normal. LYMPHATIC: No palpable lymph nodes/no lymphedema. MUSCULOSKELETAL: Normal joints with no swelling. Muscle tone is normal. LAB REVIEW: 12/07/21 04:58 12/07/21 04:58 12/07/21 04:58: Sodium 139.7, Potassium 3.34 L, Chloride 106.1, Carbon Dioxide 25.3, Anion Gap 11.64, BUN 24.7 H, Creatinine 1.29 H, Estimated GFR (MDRD) 54.00, BUN/Creatinine Ratio 19.14, Glucose 122.6 H, Calcium 9.62, Total Bilirubin 0.40, AST 21.8, ALT 13.8, Alkaline Phosphatase 84.7, Total Protein 6.51, Albumin 3.64, Globulin 2.87, Albumin/Globulin Ratio 1.26 12/07/21 04:58: WBC 5.91, RBC 4.48 L, Hgb 13.5 L, Hct 41.1 L, MCV 91.7, MCH 30.1, MCHC 32.8, RDW Coeff of Edita 14.6, Plt Count 221, Immature Gran % (Auto) 0.2, Neut % (Auto) 52.4, Lymph % (Auto) 34.7, [place] % (Auto) 10.7 H, Eos % (Auto) 1.7, Baso % (Auto) 0.3, Neut # (Auto) 3.1, Lymph # (Auto) 2.1, [place] # (Auto) 0.6, Eos # (Auto) 0.1, Baso # (Auto) 0.0, Immature Gran # (Auto) 0.0 ASSESSMENT: Please see below. 1. New onset atrial fibrillation 2. Acute CHF 3. COPD 3. Reduced ejection fraction 35% with akinetic septal wall PLAN: 1. Discharge home 2. Continue Entresto 24-26 BID 3. Continue Eliquis 5mg BID, risk of bleeding discussed. No NSAIDS. No aspirin 4. The patient will restart Rybelsus at home 5. Atrial fibrillation has been discussed in detail regarding risk of CVA 6. Will followup in the office next week 7. Potassium 40meq once today Plan and coordination of the patient's care discussed in the presence of Slot Technician and nurse. SCRIBED BY: Michelet FREITAS scribed while in presence of service performed by Dr. Robertson/Wendie Morrison APRN on 12/07/21 ([id number])
[2021-12-07] MEDS ORDERED: K-DUR PO ONE (10:02)
--- NOTE | 2021-12-07 10:07 | DS ---
DATE OF SERVICE: 12/07/21 FINAL DIAGNOSIS: 1. New onset atrial fibrillation 2. Acute CHF 3. COPD 3. 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 Followup appointment with Dr. Aldana's Office December 19 at 11:30. MEDICATIONS AT DISCHARGE: Hydrocodone-acetaminophen 5-325mg PO BID PRN Tramadol 50mg PO TID PRN Lasix 20mg PO QDAC Potassium chloride 10meq PO daily Rybelsus 7mg PO QDAC NEW PRESCRIPTIONS: Eliquis 5mg PO BID Entresto PO BID Allopurinol 200mg PO daily Metformin 500mg PO daily Metoprolol 50mg PO BID DISCONTINUED MEDICATIONS: Aspirin Metoprolol tartrate 25mg BID Losartan 50mg PO daily Metformin 500mg PO bid Zyloprim 300mg PO daily DIET INSTRUCTIONS: Regular. Drink plenty of fluids. ACTIVITY: Gradually resume activity as tolerated. Avoid excessive heat. Take. frequent rest periods. Keep legs elevated while resting. HOSPITAL COURSE: 81 year old white male who was a direct admit from our office. He has been experiencing shortness of breath. Recent echo showed reduced ejection fraction of 35%. Initially thought to have PVC with right bundle branch block but on Holter was found to be in atrial fib/flutter intermittently. He was started on Entresto to improve ejection fraction, started on Eliquis for CVA prevention. We increased Metoprolol for past 48 hours rate has been consistently under 100. Labs are stable. We will discharge home in stable condition and followup in the office next week. Risks of bleeding with Eliquis discussed in detail. CHF discussed in detail. TIME SPENT: More than 60 minutes. MTDD
--- NOTE | 2021-12-07 11:38 | PN ---
DATE OF SERVICE: 12/05/21 SUBJECTIVE: 81 year old white male hospitalized with congestive heart failure. The patient had shortness of breath and palpitation. The patient is in atrial flutter. The patient has lost nearly 8-10 pounds. His condition is improving with diuretic therapy. Metoprolol is going to be increased to 50mg twice a day. Condition is stable. TIME SPENT: More than 30 minutes. Plan and coordination of the patient's care discussed in the presence of nurse. CRISTEL
--- NOTE | 2021-12-11 09:01 | PN ---
12/04/21: Level 5 12/05/21: Intermediate 12/06/21: Intermediate 12/07/21: D as in discharge. MTDD
--- NOTE | 2021-12-11 09:01 | PN ---
DATE OF SERVICE: 12/07/21 SUBJECTIVE: 81 year old white male hospitalized with CHF, leg edema and palpitation and has atrial flutter/fib with varying ventricular response. The patient's hypertension is under control. CHF is under control. Education about CHF carried out. Atrial fibrillation with complications discussed. Eliquis with side effects with intracranial bleed and GI bleed discussed. The patient was seen and examined with the Nurse Practitioner. Condition is stable. TIME SPENT: More than 30 minutes. Plan and coordination of the patient's care discussed in the presence of nurse. CRISTEL
--- NOTE | 2021-12-12 07:21 | HOLTER ---
PATIENT INFORMATION AND COMMENTS Attending Physician: DR. DANILO ROBERTSON Indications: IRREGULAR HEART BEAT __ Patient Medications: ALLOPURINOL, AMLODIPINE, EMPAGLIFLOZIN, FUROSEMIDE, LOSARTAN, METFORMIN, METOPROLOL __ Pre-procedure Summary: Protocol: Standard Heart Rate Started: 12/05/2021 Minimum: 52 BPM Weight: 172 LBS Ended: 12/06/2021 Maximum: 132 BPM Height: 69" Duration: 24 HOURS Average: 83 BPM _ INTERPRETATIONS/OBSERVATIONS: 1. BASIC RHYTHM: ATRIAL FLUTTER/FIB WITH RATE 52 BPM TO 132 BPM, AVERAGE 83 BPM 2. PVC'S 1% OF BEATS SCANNED--NO V-TACH 3. NO ST-T WAVE CHANGES FROM BASELINE 4. ACTIVITY LOG NOT AVAILABLE MTDD
== END 2021-12-07 11:53 | disposition home or self-care (01) | DRG 292 ==
LOC: LAB 13:34 → MEDSURG A 15:00
PROVIDERS: ADMIT Internal Medicine; ATTEND Internal Medicine
DX: Z79.899 Other long term (current) drug therapy; J44.9 Chronic obstructive pulmonary disease, unspecified; M10.9 Gout, unspecified; R00.2 Palpitations; I50.21 Acute systolic (congestive) heart failure; Z79.84 Long term (current) use of oral hypoglycemic drugs; R06.02 Shortness of breath; R00.0 Tachycardia, unspecified; I50.33 Acute on chronic diastolic (congestive) heart failure; N18.30 Chronic kidney disease, stage 3 unspecified; E78.5 Hyperlipidemia, unspecified; I48.92 Unspecified atrial flutter; I50.20 Unspecified systolic (congestive) heart failure; I10 Essential (primary) hypertension; I49.9 Cardiac arrhythmia, unspecified; M17.11 Unilateral primary osteoarthritis, right knee; Z51.81 Encounter for therapeutic drug level monitoring

== ENCOUNTER 2022-04-06 09:25 | Inpatient (IN) ==
--- NOTE | 2022-04-06 09:33 | ED.PDOC ---
General ED Provider: Dr. SABI YOUNG MD Chief Complaint: Shortness of Air Stated Complaint: Patient presents with dyspnea and peripheral edema for one week. He has also had PND. Denies fever, chills, chest pain, palpitations, syncope, cough. He has also noted abdominal distention. Denies nausea, emesis, abdominal pain or constipation. He has also noted some paresthesias of the LUE for the past few hours. Denies numbness or weakness. Time Seen by Provider: 04/06/22 09:31 Mode of Arrival: Walk-In Information Source: Patient Primary Care Provider: DANILO ROBERTSON MD Nursing and Triage Documentation Reviewed and Agree: Yes Does patient meet sepsis criteria?: No System Inflammatory Response Syndrome: Not Applicable Sepsis Protocol: For patient's 13 years and over: Temp is 96.8 and below OR 101 and greater Pulse >90 BPM Resp >20/minute Acutely Altered Mental Status Are patient's symptoms suggestive of a new infection, such as: -Pneumonia -Skin, Soft Tissue -Endocarditis -UTI -Bone, Joint Infection -Implantable Device -Acute Abdominal Infection -Wound Infection -Meningitis -Blood Stream Catheter Infection -Unknown Respiratory Complaint Exam Shortness of Air Complaint/Exam Onset/Duration: one week history of worsening dyspnea and peripheral edema Symptoms Are: Still present Timing: Constant Initial Severity: Mild Current Severity: Moderate Character: Reports Dyspnea at rest and Dyspnea on exertion Aggravating: Reports Movement and Recumbent position Alleviating: Reports None Associated Signs and Symptoms: Reports Edema Related History: Reports Similar episode History of Healthcare-Acquired Pneumonia: No Pulmonary Embolism Risk Factors: Reports None Cardiac Risk Factors: Reports Diabetes and Hypertension Pseudomonas Risk Factors: Reports None Tuberculosis Risk Factors: Reports None Home Oxygen Use: No Respiratory Distress: None Stridor Present: No Tracheal Deviation: No Subcutaneous Emphysema: No Accessory Muscle Use: No Retractions: Not Present Diminished Breath Sounds: No Prolonged Expiratory Phase: No Unable to Speak Full Sentences: No Fatigue: No Leg Swelling: Yes Charlie's Sign Present: No Grunting Respirations: No Review of Systems Review Of Systems Constitutional: Reports No symptoms Eyes: Reports No symptoms Ears, Nose, Mouth, Throat: Reports No symptoms Respiratory: Reports Orthopnea and Short of air Cardiac: Reports Edema GI: Reports Abdomen distended : Reports No symptoms Musculoskeletal: Reports No symptoms Skin: Reports No symptoms Neurological: Reports Tingling Endocrine: Reports No symptoms Hematologic/Lymphatic: Reports No symptoms All Other Systems: Reviewed and Negative [facility] Medical History (Updated 04/06/22 @ 11:18 by SABI YOUNG MD) CHF (congestive heart failure) CVA (cerebral vascular accident) Diabetes mellitus Dyslipidemia Esophageal dilatation Gout HTN (hypertension) Osteoarthritis of right knee Polyarthritis Social History (Updated 12/04/21 @ 15:34 by STEPHANIE MATHIAS RN) Smoking and tobacco status: Former smoker Physical Exam Physical Exam Appearance: Reports No pain distress, Well-nourished and Other (Patient breathing without any distress.) Ill-appearing: Mild Pain Distress: None Eyes: Reports Not Examined ENT: Reports Nose normal and Oropharynx normal Neck: Supple Respiratory: Reports Airway patent, Breath sounds clear and Breath sounds equal Cardiovascular: Reports RRR, No rub and No murmur GI/: Reports Soft, Nontender, No masses and Other (Moderate distention.) Musculoskeletal: Reports Edema (Mild to moderate peripheral edema.) Skin: Reports Warm, Dry and Normal color Neurological: Reports Sensation intact, Motor intact, Cranial nerves intact, Alert and Oriented Psychiatric: Reports Affect appropriate and Mood appropriate Interpretation Radiology Interpretation Radiology Interpretation By: Radiologist Exam Interpreted: Portable CXR (small right pleural effusion, cardiomegaly, interstitial edema) and Other (scattered stool and gas on KUB, nonobstructive pattern) EKG Interpretation Time of EKG #1: 09:50 Rate: Normal Rhythm: Sinus Ectopy: PVCs [place]: Left ST Segment: Normal Interpretation: RBBB, T wave inversion leads V1-V3 Physician Notification Case Discussed Physician Notified: Dr Robertson Time of Notification: 11:16 Comments: Patient will be admitted for treatment of acute exacerbation of CHF Critical Care Note Critical Care Note Total Critical Care Time (mins): 0 Course Course Hematology/Chemistry: 04/06/22 09:50 04/06/22 09:50 Orders, Labs, Meds: Lab Review 04/06/22 04/06/22 04/06/22 09:45 09:45 09:50 WBC 5.81 RBC 4.14 L Hgb 12.6 L Hct 38.6 L MCV 93.2 MCH 30.4 MCHC 32.6 RDW Coeff of Edita 15.9 H Plt Count 159 Immature Gran % (Auto) 0.2 Neut % (Auto) 70.5 Lymph % (Auto) 17.7 [place] % (Auto) 9.8 Eos % (Auto) 1.5 Baso % (Auto) 0.3 Neut # (Auto) 4.1 Lymph # (Auto) 1.0 [place] # (Auto) 0.6 Eos # (Auto) 0.1 Baso # (Auto) 0.0 Immature Gran # (Auto) 0.0 Puncture Site Base Excess O2 Saturation ABG pH ABG pCO2 ABG pO2 ABG HCO3 ABG Total CO2 Sky Test Hemoglobin Oxyhemoglobin Carboxyhemoglobin Total Hemoglobin O2 Delivery Device FiO2 % Sodium Potassium Chloride Carbon Dioxide Anion Gap BUN Creatinine Estimated GFR (MDRD) BUN/Creatinine Ratio Glucose Calcium Total Bilirubin AST ALT Alkaline Phosphatase Troponin I NT-Pro-B Natriuret Pep Total Protein Albumin Globulin Albumin/Globulin Ratio Influ A Molecular Assay Negative by naat Influ B Molecular Assay Negative by naat SARS CoV-2 RNA Rapid DIMITRIS Negative 04/06/22 04/06/22 04/06/22 09:50 09:50 10:33 WBC RBC Hgb Hct MCV MCH MCHC RDW Coeff of Edita Plt Count Immature Gran % (Auto) Neut % (Auto) Lymph % (Auto) [place] % (Auto) Eos % (Auto) Baso % (Auto) Neut # (Auto) Lymph # (Auto) [place] # (Auto) Eos # (Auto) Baso # (Auto) Immature Gran # (Auto) Puncture Site Rbrach Base Excess 4.9 H O2 Saturation 91.7 L ABG pH 7.51 H* ABG pCO2 35.0 ABG pO2 56.0 L* ABG HCO3 27.9 ABG Total CO2 29.0 H Sky Test + Hemoglobin 1.3 Oxyhemoglobin 91.3 L Carboxyhemoglobin 2.3 H Total Hemoglobin 12.3 O2 Delivery Device Ra FiO2 % 21.0 Sodium 139.9 Potassium 3.20 L Chloride 102.4 Carbon Dioxide 30.8 H Anion Gap 9.90 BUN 15.4 Creatinine 1.17 H Estimated GFR (MDRD) 60.00 BUN/Creatinine Ratio 13.16 Glucose 147.4 H Calcium 9.14 Total Bilirubin 0.66 AST 31.4 ALT 14.9 Alkaline Phosphatase 82.0 Troponin I < 0.012 NT-Pro-B Natriuret Pep 8200.000 H Total Protein 7.04 Albumin 4.00 Globulin 3.04 Albumin/Globulin Ratio 1.31 Influ A Molecular Assay Influ B Molecular Assay SARS CoV-2 RNA Rapid DIMITRIS Orders Category Date Time Status ABG DRAW REQUEST Stat CARDIO 04/06/22 10:33 Ordered EKG-(ED ONLY) Stat CARDIO 04/06/22 09:38 Completed OXYGEN [ED APPLY O2] .ONCE EMERGENCY 04/06/22 10:50 Active Saline Lock [ED IV/MEDIPORT/POWERPORT] .ONCE EMERGENCY 04/06/22 10:34 Active ABG COOX Stat LAB 04/06/22 10:33 Completed BNP [NT-PROBNP] Stat LAB 04/06/22 09:50 Completed CBC W/ AUTO DIFF Stat LAB 04/06/22 09:50 Completed CMP [COMPREHENSIVE METABOLIC PANEL] Stat LAB 04/06/22 09:50 Completed COVID [SARS COV-2 RNA RAPID DIMITRIS] Stat LAB 04/06/22 09:45 Completed FLU A/B MOLECULAR Stat LAB 04/06/22 09:45 Completed TROPONIN I Stat LAB 04/06/22 09:50 Completed 0.9 % Sodium Chloride [Saline Flush] MEDS 04/06/22 10:34 Active 1 syr IVF PRN PRN Furosemide [Lasix Tab] MEDS 04/06/22 09:38 Discontinued 40 mg PO ONCE STA Furosemide [Lasix Tab] MEDS 04/06/22 09:46 Discontinued 40 mg PO ONCE STA Potassium Chloride [K-Dur] MEDS 04/06/22 10:34 Discontinued 40 meq PO ONCE STA CXR [CHEST, 1V AP ONLY] Stat RADS 04/06/22 09:38 Completed KUB Stat RADS 04/06/22 09:40 Completed Medications Generic Name Dose Route Start Last Admin Trade Name Freq PRN Reason Stop Dose Admin Sodium Chloride 1 syr 04/06/22 10:34 0.9% Sodium Chloride 10 Ml Disp.Syrin IVF PRN PRN To flush IV Discontinued Medications Generic Name Dose Route Start Last Admin Trade Name Freq PRN Reason Stop Dose Admin Furosemide 40 mg 04/06/22 09:38 04/06/22 09:49 Furosemide 40 Mg Tablet PO 04/06/22 09:39 Not Given ONCE STA Furosemide 40 mg 04/06/22 09:46 04/06/22 09:49 Furosemide 20 Mg Tablet PO 04/06/22 09:47 40 mg ONCE STA Administration Potassium Chloride 40 meq 04/06/22 10:34 04/06/22 10:39 Potassium Chloride 20 Meq Tab PO 04/06/22 10:35 40 meq ONCE STA Administration Vital Signs: Temp Pulse Resp BP Pulse Ox 04/06/22 09:26 97.9 F 68 20 167/77 H 88 L Discharge Plan Discharge Patient Disposition: ADMITTED INPATIENT Discharge Problem: Acute exacerbation of CHF (congestive heart failure), Hypokalemia, Hypoxemia Did you review [place] ELEMENTARY ART TEACHER?: Not Applicable ED Provider: SABI YOUNG Condition: Serious Physician Progress Note: []
[2022-04-06] MEDS ORDERED: LASIX TAB PO STA ×2 (09:38→09:46)
[2022-04-06 09:55] LABS: BASOPHILS % (AUTO) 0.3 % (0.0-3.0); EOSINOPHILS # (AUTO) 0.1 K/ul (0.0-0.7); EOSINOPHILS % (AUTO) 1.5 % (0.0-7.0); HEMATOCRIT 38.6 % (42.0-52.0); HEMOGLOBIN 12.6 g/dl (14.0-18.0); IMMATURE GRANULOCYTE % (AUTO) 0.2 % (0.0-5.0); LYMPHOCYTES % (AUTO) 17.7 (10.0-50.0); MEAN CORPUSCULAR HEMOGLOBIN 30.4 pg (27.0-31.0); MEAN CORPUSCULAR HGB CONC 32.6 (31.8-35.4); MEAN CORPUSCULAR VOLUME 93.2 fl (80.0-94.0); MONOCYTES # (AUTO) 0.6 K/uL (0.4-2.0); MONOCYTES % (AUTO) 9.8 (0-10); NEUTROPHILS # (AUTO) 4.1 K/ul (2.0-6.9); NEUTROPHILS % (AUTO) 70.5 % (42.2-75.2); PLATELET COUNT 159 10^3/uL (140-440); RDW COEFFICIENT OF VARIATION 15.9 % (11.6-14.8); RED BLOOD COUNT 4.14 10^6/ul (4.70-6.10); WHITE BLOOD COUNT 5.81 K/ul (4.2-10.2)
[2022-04-06 10:07] LABS: ALANINE AMINOTRANSFERASE 14.9 U/L (0-50); ASPARTATE AMINO TRANSFERASE 31.4 U/L (17-59); BILIRUBIN,TOTAL 0.66 mg/dL (0.2-1.3); BLOOD UREA NITROGEN 15.4 mg/dL (9-20); CALCIUM 9.14 mg/dL (8.4-10.2); CARBON DIOXIDE 30.8 mmol/L (22-30.0); CHLORIDE 102.4 mmol/L (98-107); CREATININE 1.17 mg/dL (0.60-1.10); GLUCOSE 147.4 mg/dL (74-106); SODIUM 139.9 mmol/L (134.5-145); TOTAL PROTEIN 7.04 g/dL (6.3-8.2)
[2022-04-06 10:12] LABS: MOLECULAR FLU A NEGATIVE BY NAAT (NEGATIVE); MOLECULAR FLU B NEGATIVE BY NAAT (NEGATIVE)
--- NOTE | 2022-04-06 10:16 | DI ---
EXAM: KUB HISTORY: Abdominal distension. COMPARISON: CT abdomen pelvis 09/21/2017 FINDINGS: Right hip arthroplasty changes are present. There is severe degenerative disease of the le ft hip and spine. There is scattered stool and gas throughout the bowel in the abdomen pelvis. Ther e is no pneumatosis, portal venous gas or free air. IMPRESSION: Nonobstructive bowel gas pattern.
--- NOTE | 2022-04-06 10:18 | DI ---
EXAM: Frontal view of the chest. HISTORY: Dyspnea. COMPARISON: Chest radiograph 12/04/2021. FINDINGS: After calcifications of the aorta. Cervical ACDF hardware noted. Mild cardiomegaly. Small right pleural effusion. Mild interstitial thickening. Scattered calcified granulomas. No visi ble pneumothorax Severe degenerative change of the right shoulder. Multilevel spondylosis and dextroconvex scoliosis. Old left clavicle fracture. IMPRESSION: Cardiomegaly. Small right pleural effusion. Suspect mild interstitial edema. Atherosclerosis.
[2022-04-06 10:30] LABS: SARS COV-2 RNA RAPID NAAT NEGATIVE (NEGATIVE)
[2022-04-06] MEDS ORDERED: K-DUR PO STA (10:34)
[2022-04-06 10:41] LABS: TROPONIN I < 0.012 ng/ml (0.0000-0.120)
[2022-04-06 10:44] LABS: ABG O2 HGB 91.3 % (95-100); BEecf 4.9 (-2.0-3.0); COHb 2.3 (0.5-1.5); HCO3 27.9 (21-28); MetHb 1.3 (0-1.5); sO2 91.7 % (94-98); tHb 12.3 g/dl (11.7-17.4)
[2022-04-06 10:46] LABS: ABG PH 7.51 (7.35-7.45)
--- NOTE | 2022-04-06 11:51 | PCM ---
Chief Complaint Chief Complaint: increasing dyspnea History of Present Illness History of Present Illness: Patient presents with a 4-5 day history of increasing dyspnea and peripheral edema. Review of Systems Constitutional: Reports No symptoms Eyes: Reports No symptoms Ears: Reports No symptoms Nose: Reports No symptoms Throat: Reports No symptoms Mouth: Reports No symptoms Respiratory: Reports Shortness of air Cardiovascular: Reports Edema Gastrointestinal: Reports No symptoms Genitourinary: Reports No symptoms Neurological: Reports No symptoms Musculoskeletal: Reports No symptoms Skin: Reports No symptoms Immunology: Reports No symptoms Hematology: Reports No symptoms Endocrine: Reports No symptoms Psychiatric: Reports No symptoms Allergies Allergies Allergy/AdvReac Type Severity Reaction Status Date / Time Penicillins AdvReac Verified 04/06/22 09:41 [facility] Medical History (Updated 04/06/22 @ 11:18 by SABI YOUNG MD) CHF (congestive heart failure) CVA (cerebral vascular accident) Diabetes mellitus Dyslipidemia Esophageal dilatation Gout HTN (hypertension) Osteoarthritis of right knee Polyarthritis Social History (Updated 12/04/21 @ 15:34 by STEPHANIE MATHIAS RN) Smoking and tobacco status: Former smoker Medications Medications: Medications Generic Name Dose Route Start Last Admin Trade Name Freq PRN Reason Stop Dose Admin Sodium Chloride 1 syr 04/06/22 10:34 0.9% Sodium Chloride 10 Ml Disp.Syrin IVF PRN PRN To flush IV Body Composition Height: 5 ft 8 in Weight: 82.1 kg Body Mass Index (BMI): 27.5 Vital Signs Temperature: 97.9 F Pulse Rate: 68 Respiratory Rate: 20 Blood Pressure: 167/77 O2 Sat by Pulse Oximetry: 88 Physical Examination Appearance: Reports Ill-appearing, No pain distress, Well-nourished and Other (Patient is mildly tachypneic. No respiratory distress.) Ill-appearing: Moderate Pain Distress: None Eyes: Reports GINO and EOMI ENT: Reports Nose normal and Oropharynx normal Neck: Supple Respiratory: Reports Airway patent, Breath sounds clear and Breath sounds equal Cardiovascular: Reports RRR, No rub, No murmur and Other (mild to moderate peripheral edema bilaterally to the knees) GI/: Reports Soft, Nontender, No masses, Bowel sounds normal and Other (moderate distention) Musculoskeletal: Reports Normal strength and ROM intact Skin: Reports Warm, Dry and Normal color Neurological: Reports Sensation intact, Motor intact, Alert and Oriented Psychiatric: Reports Affect appropriate and Mood appropriate Lab/Tests/Diagnostic Imaging Lab/Tests/Diagnostic Imaging: Lab Review 04/06/22 04/06/22 04/06/22 09:45 09:45 09:50 WBC 5.81 RBC 4.14 L Hgb 12.6 L Hct 38.6 L MCV 93.2 MCH 30.4 MCHC 32.6 RDW Coeff of Edita 15.9 H Plt Count 159 Immature Gran % (Auto) 0.2 Neut % (Auto) 70.5 Lymph % (Auto) 17.7 [place] % (Auto) 9.8 Eos % (Auto) 1.5 Baso % (Auto) 0.3 Neut # (Auto) 4.1 Lymph # (Auto) 1.0 [place] # (Auto) 0.6 Eos # (Auto) 0.1 Baso # (Auto) 0.0 Immature Gran # (Auto) 0.0 Puncture Site Base Excess O2 Saturation ABG pH ABG pCO2 ABG pO2 ABG HCO3 ABG Total CO2 Sky Test Hemoglobin Oxyhemoglobin Carboxyhemoglobin Total Hemoglobin O2 Delivery Device FiO2 % Sodium Potassium Chloride Carbon Dioxide Anion Gap BUN Creatinine Estimated GFR (MDRD) BUN/Creatinine Ratio Glucose Calcium Total Bilirubin AST ALT Alkaline Phosphatase Troponin I NT-Pro-B Natriuret Pep Total Protein Albumin Globulin Albumin/Globulin Ratio Influ A Molecular Assay Negative by naat Influ B Molecular Assay Negative by naat SARS CoV-2 RNA Rapid DIMITRIS Negative 04/06/22 04/06/22 04/06/22 09:50 09:50 10:33 WBC RBC Hgb Hct MCV MCH MCHC RDW Coeff of Edita Plt Count Immature Gran % (Auto) Neut % (Auto) Lymph % (Auto) [place] % (Auto) Eos % (Auto) Baso % (Auto) Neut # (Auto) Lymph # (Auto) [place] # (Auto) Eos # (Auto) Baso # (Auto) Immature Gran # (Auto) Puncture Site Rbrach Base Excess 4.9 H O2 Saturation 91.7 L ABG pH 7.51 H* ABG pCO2 35.0 ABG pO2 56.0 L* ABG HCO3 27.9 ABG Total CO2 29.0 H Sky Test + Hemoglobin 1.3 Oxyhemoglobin 91.3 L Carboxyhemoglobin 2.3 H Total Hemoglobin 12.3 O2 Delivery Device Ra FiO2 % 21.0 Sodium 139.9 Potassium 3.20 L Chloride 102.4 Carbon Dioxide 30.8 H Anion Gap 9.90 BUN 15.4 Creatinine 1.17 H Estimated GFR (MDRD) 60.00 BUN/Creatinine Ratio 13.16 Glucose 147.4 H Calcium 9.14 Total Bilirubin 0.66 AST 31.4 ALT 14.9 Alkaline Phosphatase 82.0 Troponin I < 0.012 NT-Pro-B Natriuret Pep 8200.000 H Total Protein 7.04 Albumin 4.00 Globulin 3.04 Albumin/Globulin Ratio 1.31 Influ A Molecular Assay Influ B Molecular Assay SARS CoV-2 RNA Rapid DIMITRIS Orders Category Date Time Status ADMIT PATIENT INPATIENT .TO MEDS[facility] (MONITORED BED) ADMISSION 04/06/22 11:41 Ordered ABG DRAW REQUEST Stat CARDIO 04/06/22 10:33 Ordered EKG-(ED ONLY) Stat CARDIO 04/06/22 09:38 Completed OXYGEN Routine CARDIO 04/06/22 11:42 Ordered ACTIVITY .Up ad Sangeeta CARE 04/06/22 11:41 Ordered BLOOD GLUCOSE MONITORING (MED/SURG) 0630,1100,1700,2100 CARE 04/06/22 11:43 Ordered ELEVATE AFFECTED EXTREMITY .ONCE CARE 04/06/22 11:41 Ordered INTAKE & OUTPUT Q8HR CARE 04/06/22 11:41 Ordered IP: INSERT SALINE LOCK ONCE CARE 04/06/22 11:41 Ordered TELEMETRY MONITORING TELE CARE 04/06/22 11:41 Ordered VITAL SIGNS Q8HR CARE 04/06/22 11:41 Ordered REGULAR DIET DIETARY 04/06/22 Lunch Ordered OXYGEN [ED APPLY O2] .ONCE EMERGENCY 04/06/22 10:50 Active Saline Lock [ED IV/MEDIPORT/POWERPORT] .ONCE EMERGENCY 04/06/22 10:34 Active ABG COOX Stat LAB 04/06/22 10:33 Completed BNP [NT-PROBNP] Q3D LAB 04/07/22 06:00 Ordered BNP [NT-PROBNP] Stat LAB 04/06/22 09:50 Completed CBC W/ AUTO DIFF DAILY@0600 LAB 04/07/22 06:00 Ordered CBC W/ AUTO DIFF DAILY@0600 LAB 04/08/22 06:00 Ordered CBC W/ AUTO DIFF Stat LAB 04/06/22 09:50 Completed CMP [COMPREHENSIVE METABOLIC PANEL] Stat LAB 04/06/22 09:50 Completed COMPREHENSIVE METABOLIC PANEL DAILY@0600 LAB 04/07/22 06:00 Ordered COMPREHENSIVE METABOLIC PANEL DAILY@0600 LAB 04/08/22 06:00 Ordered COVID [SARS COV-2 RNA RAPID DIMITRIS] Stat LAB 04/06/22 09:45 Completed FLU A/B MOLECULAR Stat LAB 04/06/22 09:45 Completed TROPONIN I Stat LAB 04/06/22 09:50 Completed 0.9 % Sodium Chloride [Saline Flush] MEDS 04/06/22 10:34 Active 1 syr IVF PRN PRN Furosemide [Lasix Tab] MEDS 04/06/22 09:38 Discontinued 40 mg PO ONCE STA Furosemide [Lasix Tab] MEDS 04/06/22 09:46 Discontinued 40 mg PO ONCE STA Furosemide [Lasix] MEDS 04/06/22 17:00 Ordered 40 mg IVP BIDAC Potassium Chloride [K-Dur] MEDS 04/06/22 10:34 Discontinued 40 meq PO ONCE STA RESUSCITATION STATUS Routine OTHERS 04/06/22 11:41 Ordered CXR [CHEST, 1V AP ONLY] Stat RADS 04/06/22 09:38 Completed KUB Stat RADS 04/06/22 09:40 Completed Medications Generic Name Dose Route Start Last Admin Trade Name Freq PRN Reason Stop Dose Admin Sodium Chloride 1 syr 04/06/22 10:34 0.9% Sodium Chloride 10 Ml Disp.Syrin IVF PRN PRN To flush IV Discontinued Medications Generic Name Dose Route Start Last Admin Trade Name Freq PRN Reason Stop Dose Admin Furosemide 40 mg 04/06/22 09:38 04/06/22 09:49 Furosemide 40 Mg Tablet PO 04/06/22 09:39 Not Given ONCE STA Furosemide 40 mg 04/06/22 09:46 04/06/22 09:49 Furosemide 20 Mg Tablet PO 04/06/22 09:47 40 mg ONCE STA Administration Potassium Chloride 40 meq 04/06/22 10:34 04/06/22 10:39 Potassium Chloride 20 Meq Tab PO 04/06/22 10:35 40 meq ONCE STA Administration Assessment (1) Acute exacerbation of CHF (congestive heart failure): Status: Acute Code(s): I50.9 - Heart failure, unspecified SNOMED Code(s): 792754008 (2) Hypokalemia: Status: Acute Code(s): E87.6 - Hypokalemia SNOMED Code(s): 73455056 (3) Hypoxemia: Status: Acute Code(s): R09.02 - Hypoxemia SNOMED Code(s): 411578225 Plan Plan: Patient to be admitted for diuresis. He will receive supplemental oxygen and also have his potassium deficit corrected.
[2022-04-06 12:40] VITALS: BMI 27.6
[2022-04-06] MEDS ORDERED: ULTRAM PO PRN (13:48)
[2022-04-06] MEDS ORDERED: NITROSTAT SL PRN (15:45)
[2022-04-06] MEDS ORDERED: ATROPINE SULFATE PFS IVP PRN (15:45)
[2022-04-06] MEDS ORDERED: TYLENOL PO PRN (15:45)
[2022-04-06 15:54] LABS: BILIRUBIN,URINE Negative (NEGATIVE); CLARITY,URINE Clear (CLEAR); COLOR,URINE Yellow (YELLOW); GLUCOSE, URINE (UA) Negative (NEGATIVE); KETONES,URINE Negative (NEGATIVE); LEUKOCYTE ESTERASE ,URINE Negative (NEGATIVE); NITRITE,URINE Negative (NEGATIVE); PH,URINE 7.5 (5-9); PROTEIN,URINE Negative (NEGATIVE); URINE, BLOOD Negative (NEGATIVE)
[2022-04-06] MEDS ORDERED: LASIX IVP SCH (17:00)
[2022-04-06] MEDS: K-DUR PO SCH (17:39)
[2022-04-06] MEDS: ELIQUIS PO SCH (20:46)
[2022-04-06] MEDS: ENTRESTO 24 MG-26 MG TABLET PO SCH (20:46)
[2022-04-06] MEDS: LOPRESSOR PO SCH (20:50)
[2022-04-06] MEDS: NORCO 5-325 PO PRN (22:15)
[2022-04-07 05:12] LABS: BASOPHILS % (AUTO) 0.3 % (0.0-3.0); EOSINOPHILS # (AUTO) 0.1 K/ul (0.0-0.7); EOSINOPHILS % (AUTO) 1.4 % (0.0-7.0); HEMOGLOBIN 12.3 g/dl (14.0-18.0); IMMATURE GRANULOCYTE % (AUTO) 0.3 % (0.0-5.0); LYMPHOCYTES # (AUTO) 1.3 K/uL (0.60-3.4); LYMPHOCYTES % (AUTO) 19.3 (10.0-50.0); MEAN CORPUSCULAR HEMOGLOBIN 30.1 pg (27.0-31.0); MEAN CORPUSCULAR HGB CONC 32.4 (31.8-35.4); MEAN CORPUSCULAR VOLUME 92.9 fl (80.0-94.0); MONOCYTES # (AUTO) 0.7 K/uL (0.4-2.0); MONOCYTES % (AUTO) 11.2 (0-10); NEUTROPHILS # (AUTO) 4.5 K/ul (2.0-6.9); NEUTROPHILS % (AUTO) 67.5 % (42.2-75.2); PLATELET COUNT 164 10^3/uL (140-440); RDW COEFFICIENT OF VARIATION 15.9 % (11.6-14.8); RED BLOOD COUNT 4.09 10^6/ul (4.70-6.10); WHITE BLOOD COUNT 6.63 K/ul (4.2-10.2)
[2022-04-07 05:27] LABS: ALANINE AMINOTRANSFERASE 12.9 U/L (0-50); ALBUMIN 3.88 g/dL (3.5-5.0); ALKALINE PHOSPHATASE 87.6 U/L (56-119); ASPARTATE AMINO TRANSFERASE 20.1 U/L (17-59); BILIRUBIN,TOTAL 0.66 mg/dL (0.2-1.3); BLOOD UREA NITROGEN 13.4 mg/dL (9-20); CALCIUM 9.72 mg/dL (8.4-10.2); CARBON DIOXIDE 28.2 mmol/L (22-30.0); CHLORIDE 104.9 mmol/L (98-107); CREATININE 1.17 mg/dL (0.60-1.10); GLUCOSE 153.1 mg/dL (74-106); POTASSIUM 3.57 mmol/L (3.5-5.1); TOTAL PROTEIN 6.81 g/dL (6.3-8.2)
[2022-04-07 05:39] LABS: ABG PH 7.48 (7.35-7.45); BEecf 1.8 (-2.0-3.0); COHb 2.1 (0.5-1.5); HCO3 25.3 (21-28); MetHb 0.9 (0-1.5); TCO2 26.3 (19-24); sO2 94.4 % (94-98); tHb 12.4 g/dl (11.7-17.4)
[2022-04-07] MEDS: LASIX TAB PO SCH (05:49)
[2022-04-07] MEDS: GLUCOPHAGE PO SCH (08:38)
[2022-04-07] MEDS: ELIQUIS PO SCH ×2 (08:38→20:44)
[2022-04-07] MEDS: ZYLOPRIM PO SCH (08:38)
[2022-04-07] MEDS: K-DUR PO SCH ×2 (08:38→17:46)
[2022-04-07] MEDS: ENTRESTO 24 MG-26 MG TABLET PO SCH ×2 (08:38→20:44)
[2022-04-07] MEDS: LOPRESSOR PO SCH ×2 (08:38→20:44)
[2022-04-07] MEDS: NORCO 5-325 PO PRN (20:44)
[2022-04-08 05:34] LABS: BASOPHILS % (AUTO) 0.4 % (0.0-3.0); EOSINOPHILS # (AUTO) 0.1 K/ul (0.0-0.7); EOSINOPHILS % (AUTO) 2.3 % (0.0-7.0); HEMATOCRIT 37.6 % (42.0-52.0); HEMOGLOBIN 12.1 g/dl (14.0-18.0); IMMATURE GRANULOCYTE % (AUTO) 0.2 % (0.0-5.0); LYMPHOCYTES # (AUTO) 1.5 K/uL (0.60-3.4); LYMPHOCYTES % (AUTO) 30.9 (10.0-50.0); MEAN CORPUSCULAR HGB CONC 32.2 (31.8-35.4); MEAN CORPUSCULAR VOLUME 93.1 fl (80.0-94.0); MONOCYTES # (AUTO) 0.6 K/uL (0.4-2.0); MONOCYTES % (AUTO) 12.1 (0-10); NEUTROPHILS # (AUTO) 2.6 K/ul (2.0-6.9); NEUTROPHILS % (AUTO) 54.1 % (42.2-75.2); PLATELET COUNT 160 10^3/uL (140-440); RDW COEFFICIENT OF VARIATION 15.9 % (11.6-14.8); RED BLOOD COUNT 4.04 10^6/ul (4.70-6.10); WHITE BLOOD COUNT 4.72 K/ul (4.2-10.2)
[2022-04-08 05:44] LABS: ABG O2 HGB 89.5 % (95-100); ABG PH 7.47 (7.35-7.45); BEecf 5.4 (-2.0-3.0); COHb 2.1 (0.5-1.5); HCO3 29.1 (21-28); MetHb 0.7 (0-1.5); TCO2 30.3 (19-24); sO2 89.2 % (94-98); tHb 12.3 g/dl (11.7-17.4)
[2022-04-08 05:45] LABS: ALANINE AMINOTRANSFERASE 11.4 U/L (0-50); ALBUMIN 3.7 g/dL (3.5-5.0); ALKALINE PHOSPHATASE 77.5 U/L (56-119); ASPARTATE AMINO TRANSFERASE 21.5 U/L (17-59); BILIRUBIN,TOTAL 0.64 mg/dL (0.2-1.3); BLOOD UREA NITROGEN 17.5 mg/dL (9-20); CALCIUM 9.67 mg/dL (8.4-10.2); CARBON DIOXIDE 29.1 mmol/L (22-30.0); CHLORIDE 103.7 mmol/L (98-107); CREATININE 1.14 mg/dL (0.60-1.10); GLUCOSE 120.1 mg/dL (74-106); POTASSIUM 3.47 mmol/L (3.5-5.1); SODIUM 138.8 mmol/L (134.5-145); TOTAL PROTEIN 6.57 g/dL (6.3-8.2)
[2022-04-08] MEDS: LASIX TAB PO SCH (05:46)
[2022-04-08] MEDS: K-DUR PO SCH ×2 (09:05→17:10)
[2022-04-08] MEDS: ZYLOPRIM PO SCH (09:06)
[2022-04-08] MEDS: GLUCOPHAGE PO SCH (09:06)
[2022-04-08] MEDS: ENTRESTO 24 MG-26 MG TABLET PO SCH ×2 (09:06→20:24)
[2022-04-08] MEDS: ELIQUIS PO SCH ×2 (09:06→20:24)
[2022-04-08] MEDS: LOPRESSOR PO SCH ×2 (09:06→20:24)
[2022-04-08] MEDS: NORCO 5-325 PO PRN (20:24)
[2022-04-09] MEDS: LASIX TAB PO SCH (05:30)
[2022-04-09 05:38] LABS: BASOPHILS % (AUTO) 0.5 % (0.0-3.0); EOSINOPHILS # (AUTO) 0.2 K/ul (0.0-0.7); EOSINOPHILS % (AUTO) 2.4 % (0.0-7.0); HEMATOCRIT 41.6 % (42.0-52.0); HEMOGLOBIN 13.1 g/dl (14.0-18.0); IMMATURE GRANULOCYTE % (AUTO) 0.2 % (0.0-5.0); LYMPHOCYTES # (AUTO) 1.9 K/uL (0.60-3.4); LYMPHOCYTES % (AUTO) 29.3 (10.0-50.0); MEAN CORPUSCULAR HGB CONC 31.5 (31.8-35.4); MEAN CORPUSCULAR VOLUME 95.4 fl (80.0-94.0); MONOCYTES # (AUTO) 0.8 K/uL (0.4-2.0); MONOCYTES % (AUTO) 12.2 (0-10); NEUTROPHILS # (AUTO) 3.7 K/ul (2.0-6.9); NEUTROPHILS % (AUTO) 55.4 % (42.2-75.2); PLATELET COUNT 179 10^3/uL (140-440); RED BLOOD COUNT 4.36 10^6/ul (4.70-6.10); WHITE BLOOD COUNT 6.62 K/ul (4.2-10.2)
[2022-04-09 05:46] LABS: ALBUMIN 3.96 g/dL (3.5-5.0); ALKALINE PHOSPHATASE 83.3 U/L (56-119); ASPARTATE AMINO TRANSFERASE 19.9 U/L (17-59); BILIRUBIN,TOTAL 0.51 mg/dL (0.2-1.3); BLOOD UREA NITROGEN 20.3 mg/dL (9-20); CALCIUM 9.77 mg/dL (8.4-10.2); CARBON DIOXIDE 33.3 mmol/L (22-30.0); CHLORIDE 103.5 mmol/L (98-107); CREATININE 1.2 mg/dL (0.60-1.10); GLUCOSE 140.1 mg/dL (74-106); POTASSIUM 4.13 mmol/L (3.5-5.1); SODIUM 141.4 mmol/L (134.5-145); TOTAL PROTEIN 7.02 g/dL (6.3-8.2)
[2022-04-09] MEDS ORDERED: LASIX IVP ONE (08:39)
--- NOTE | 2022-04-09 09:58 | PCM.PROG ---
Attending Provider: ATTENDING PROVIDER: Dr. DANILO ROBERTSON MD This patient is seen with Wendie Morrison, Nurse Practitioner. DATE OF SERVICE: 04/09/22 SUBJECTIVE: This 82 year old /WHITE M was hospitalized 04/06/22. He is down about 11 pounds. Renal function at baseline. Shortness of breath has improved. Still muffled heart sounds and shortness of breath with exertion. REVIEW OF SYSTEMS: CONSTITUTIONAL: No night sweats. Fatigue. No fever or chills. Weakness. HEENT: Eyes: No visual changes. No eye pain. No eye discharge. ENT: No runny nose. No epistaxis. No sinus pain. No odynophagia. No congestion. RESPIRATORY: No cough, no congestion. No hemoptysis. Shortness of breath. CARDIOVASCULAR: No angina symptoms. No CHF symptoms. No atypical chest pain for CAD. No palpitations. No orthopnea.. GASTROINTESTINAL: No abdominal pain. No nausea or vomiting. No diarrhea or constipation. No hematemesis. No hematochezia. GENITOURINARY: No urgency. No frequency. No dysuria. No hematuria. No obstructive symptoms. No discharge. No pain. No significant abnormal bleeding. MUSCULOSKELETAL: No musculoskeletal pain; no joint swelling. Trace leg edema. NEUROLOGICAL: Awake, alert, oriented to time, place and person. No headache. No neck pain. No syncope. No seizures. No dizziness. PSYCHIATRIC: Not anxious. No depression. No suicidal thoughts. No homicidal thoughts. SKIN: No rash. No lesions. No wounds. ENDOCRINE: No unexplained weight loss. No weight gain. HEMATOLOGIC/LYMPHATIC: No anemia. No purpura. No petechiae. No prolonged or excessive bleeding. No palpable lymph nodes. PHYSICAL EXAMINATION: GENERAL: The patient is awake, alert and oriented, sitting in bed in no distress. VITAL SIGNS: Temperature 96.4 F, Pulse 87, Respiratory Rate 20, BP 160/84, Pulse Ox 95% HEENT: Head normocephalic, atraumatic. Eyes: Extraocular muscles are intact. Pupils are equal, round and reactive to light and accommodation. Ears: No lesions. Nose appeared normal. Throat: No exudate or erythema. NECK: Supple. No JVD, no carotid bruit. No lymphadenopathy or thyromegaly. LUNGS: Diminished breath sounds. Clear to auscultation. Percussion note normal. Chest symmetrical. HEART: Atrial fibrillation with gallop. S1, S2, no S3. No murmurs. No cyanosis or clubbing. No ascites. Pulses: Dorsalis pedis and posterior tibial pulses +1 to +2 both sides. ABDOMEN: Soft. Non-tender. Bowel sounds active. No CVA tenderness. No mass felt. EXTREMITIES: Trace pedal edema. Full range of motion of all extremities, equal. NEUROLOGIC: No focal deficit. Cranial nerves II through XII are grossly intact. No headache. No double vision. SKIN: Not dry. Intact. Turgor-normal. LYMPHATIC: No palpable lymph nodes/no lymphedema. MUSCULOSKELETAL: Normal joints with no swelling. Muscle tone is normal. LAB REVIEW: 04/09/22 05:00 04/09/22 05:00 04/09/22 05:00: Sodium 141.4, Potassium 4.13, Chloride 103.5, Carbon Dioxide 3 3.3 H, Anion Gap 8.73, BUN 20.3 H, Creatinine 1.20 H, Estimated GFR (MDRD) 58.00, BUN/Creatinine Ratio 16.91, Glucose 140.1 H, Calcium 9.77, Total Bilirubin 0.51, AST 19.9, ALT 12.0, Alkaline Phosphatase 83.3, NT-Pro-B Natriuret Pep 6380.000 H, Total Protein 7.02, Albumin 3.96, Globulin 3.06, Albumin/Globulin Ratio 1.29 04/09/22 05:00: WBC 6.62, RBC 4.36 L, Hgb 13.1 L, Hct 41.6 L, MCV 95.4 H, MCH 30.0, MCHC 31.5 L, RDW Coeff of Edita 16.0 H, Plt Count 179, Immature Gran % (Auto) 0.2, Neut % (Auto) 55.4, Lymph % (Auto) 29.3, [place] % (Auto) 12.2 H, Eos % (Auto) 2.4, Baso % (Auto) 0.5, Neut # (Auto) 3.7, Lymph # (Auto) 1.9, [place] # (Auto) 0.8, Eos # (Auto) 0.2, Baso # (Auto) 0.0, Immature Gran # (Auto) 0.0 ASSESSMENT: Please see below. 1. CHF 2. Atrial fibrillation 3. Chronic kidney disease stage III 4. COPD 5. Hypertension PLAN: 1. Increase Entresto to dose 49/51 BID 2. Lasix 20mg IV today 3. Echo Plan and coordination of the patient's care discussed in the presence of [employer] and nurse. SCRIBED BY: Carlota FREITASist scribed while in presence of service performed by Dr. Robertson/Wendie Morrison APRN on 04/09/22 ([id number])
[2022-04-09] MEDS: LOPRESSOR PO SCH ×2 (10:16→20:50)
[2022-04-09] MEDS: GLUCOPHAGE PO SCH (10:16)
[2022-04-09] MEDS: ENTRESTO 24 MG-26 MG TABLET PO SCH ×2 (10:16→20:49)
[2022-04-09] MEDS: K-DUR PO SCH ×2 (10:16→18:12)
[2022-04-09] MEDS: ELIQUIS PO SCH ×2 (10:17→20:49)
[2022-04-09] MEDS: ZYLOPRIM PO SCH (10:17)
[2022-04-10 05:27] LABS: BASOPHILS % (AUTO) 0.4 % (0.0-3.0); EOSINOPHILS # (AUTO) 0.1 K/ul (0.0-0.7); EOSINOPHILS % (AUTO) 2.7 % (0.0-7.0); HEMATOCRIT 37.8 % (42.0-52.0); HEMOGLOBIN 11.9 g/dl (14.0-18.0); IMMATURE GRANULOCYTE % (AUTO) 0.4 % (0.0-5.0); LYMPHOCYTES # (AUTO) 1.3 K/uL (0.60-3.4); MEAN CORPUSCULAR HEMOGLOBIN 29.5 pg (27.0-31.0); MEAN CORPUSCULAR HGB CONC 31.5 (31.8-35.4); MEAN CORPUSCULAR VOLUME 93.6 fl (80.0-94.0); MONOCYTES # (AUTO) 0.6 K/uL (0.4-2.0); MONOCYTES % (AUTO) 10.7 (0-10); NEUTROPHILS # (AUTO) 3.1 K/ul (2.0-6.9); NEUTROPHILS % (AUTO) 60.8 % (42.2-75.2); PLATELET COUNT 172 10^3/uL (140-440); RDW COEFFICIENT OF VARIATION 15.9 % (11.6-14.8); RED BLOOD COUNT 4.04 10^6/ul (4.70-6.10); WHITE BLOOD COUNT 5.13 K/ul (4.2-10.2)
[2022-04-10 05:45] LABS: ALBUMIN 3.44 g/dL (3.5-5.0); ALKALINE PHOSPHATASE 70.3 U/L (56-119); BILIRUBIN,TOTAL 0.52 mg/dL (0.2-1.3); CALCIUM 9.08 mg/dL (8.4-10.2); CARBON DIOXIDE 29.2 mmol/L (22-30.0); CREATININE 1.14 mg/dL (0.60-1.10); GLUCOSE 125.3 mg/dL (74-106); POTASSIUM 3.74 mmol/L (3.5-5.1); SODIUM 138.3 mmol/L (134.5-145); TOTAL PROTEIN 6.18 g/dL (6.3-8.2)
[2022-04-10] MEDS ORDERED: LASIX IVP ONE (08:29)
[2022-04-10] MEDS: LOPRESSOR PO SCH ×2 (09:15→20:18)
[2022-04-10] MEDS: ENTRESTO 24 MG-26 MG TABLET PO SCH ×2 (09:15→20:18)
[2022-04-10] MEDS: GLUCOPHAGE PO SCH (09:15)
[2022-04-10] MEDS: ZYLOPRIM PO SCH (09:15)
[2022-04-10] MEDS: K-DUR PO SCH ×2 (09:15→16:55)
[2022-04-10] MEDS: ELIQUIS PO SCH ×2 (09:16→20:19)
--- NOTE | 2022-04-10 09:27 | PCM.PROG ---
Attending Provider: ATTENDING PROVIDER: Dr. DANILO ROBERTSON MD This patient is seen with Wendie Morrison, Nurse Practitioner. DATE OF SERVICE: 04/10/22 SUBJECTIVE: This 82 year old /WHITE M was hospitalized 04/06/22. Had 2 liters with IV Lasix. Breathing has improved today. Swelling in feet has improved. Up and about walking the halls. Tolerating increase dose of Entresto. REVIEW OF SYSTEMS: CONSTITUTIONAL: No night sweats. Fatigue. No fever or chills. Weakness. HEENT: Eyes: No visual changes. No eye pain. No eye discharge. ENT: No runny nose. No epistaxis. No sinus pain. No odynophagia. No congestion. RESPIRATORY: No cough, no congestion. No hemoptysis. Shortness of breath. CARDIOVASCULAR: No angina symptoms. No CHF symptoms. No atypical chest pain for CAD. No palpitations. No orthopnea.. GASTROINTESTINAL: No abdominal pain. No nausea or vomiting. No diarrhea or constipation. No hematemesis. No hematochezia. GENITOURINARY: No urgency. No frequency. No dysuria. No hematuria. No obstructive symptoms. No discharge. No pain. No significant abnormal bleeding. MUSCULOSKELETAL: No musculoskeletal pain; no joint swelling. NEUROLOGICAL: Awake, alert, oriented to time, place and person. No headache. No neck pain. No syncope. No seizures. No dizziness. PSYCHIATRIC: Not anxious. No depression. No suicidal thoughts. No homicidal thoughts. SKIN: No rash. No lesions. No wounds. ENDOCRINE: No unexplained weight loss. No weight gain. HEMATOLOGIC/LYMPHATIC: No anemia. No purpura. No petechiae. No prolonged or excessive bleeding. No palpable lymph nodes. PHYSICAL EXAMINATION: GENERAL: The patient is awake, alert and oriented, sitting in bed in no distress. VITAL SIGNS: Temperature 97.5 F, Pulse 86, Respiratory Rate 18, BP 137/82, Pulse Ox 95% HEENT: Head normocephalic, atraumatic. Eyes: Extraocular muscles are intact. Pupils are equal, round and reactive to light and accommodation. Ears: No lesions. Nose appeared normal. Throat: No exudate or erythema. NECK: Supple. No JVD, no carotid bruit. No lymphadenopathy or thyromegaly. LUNGS: Diminished breath sounds. Clear to auscultation. Percussion note normal. Chest symmetrical. HEART: S1, S2, no S3. Irregular heart rate, Grade I murmurs. No cyanosis or clubbing. No ascites. Pulses: Dorsalis pedis and posterior tibial pulses +1 to +2 both sides. ABDOMEN: Soft. Non-tender. Bowel sounds active. No CVA tenderness. No mass felt. EXTREMITIES: No edema. Full range of motion of all extremities, equal. NEUROLOGIC: No focal deficit. Cranial nerves II through XII are grossly intact. No headache. No double vision. SKIN: Not dry. Intact. Turgor-normal. LYMPHATIC: No palpable lymph nodes/no lymphedema. MUSCULOSKELETAL: Normal joints with no swelling. Muscle tone is normal. LAB REVIEW: 04/10/22 04:46 04/10/22 04:46 04/10/22 04:46: Sodium 138.3, Potassium 3.74, Chloride 104.0, Carbon Dioxide 29.2, Anion Gap 8.84, BUN 26.0 H, Creatinine 1.14 H, Estimated GFR (MDRD) 62.00, BUN/Creatinine Ratio 22.80, Glucose 125.3 H, Calcium 9.08, Total Bilirubin 0.52, AST 19.0, ALT 11.0, Alkaline Phosphatase 70.3, Total Protein 6.18 L, Albumin 3.44 L, Globulin 2.74, Albumin/Globulin Ratio 1.25 04/10/22 04:46: WBC 5.13, RBC 4.04 L, Hgb 11.9 L, Hct 37.8 L, MCV 93.6, MCH 29.5, MCHC 31.5 L, RDW Coeff of Edita 15.9 H, Plt Count 172, Immature Gran % (Auto) 0.4, Neut % (Auto) 60.8, Lymph % (Auto) 25.0, [place] % (Auto) 10.7 H, Eos % (Auto) 2.7, Baso % (Auto) 0.4, Neut # (Auto) 3.1, Lymph # (Auto) 1.3, [place] # (Auto) 0.6, Eos # (Auto) 0.1, Baso # (Auto) 0.0, Immature Gran # (Auto) 0.0 ASSESSMENT: Please see below. 1. Acute CHF 2. Atrial fibrillation 3. Coronary artery disease 4. COPD PLAN: 1. IV Lasix 20mg times one day 2. 2D echo 3. Anticipate possible discharge home tomorrow. i Plan and coordination of the patient's care discussed in the presence of [employer] and nurse. SCRIBED BY: Michelet FREITAS scribed while in presence of service performed by Dr. Robertson/Wendie Morrison APRN on 04/10/22 ([id number])
--- NOTE | 2022-04-10 14:08 | ECHO2D ---
Date of Exam: 04/10/2022 Ordering Physician: DR. DANILO ROBERTSON Room #:[id number] Reason for Echo: SOB, HTN, CHF M-Mode Normal Adult Results LV Dimensions Normal Adult Results AoV Opening excursions >1.6 >1.6 LVEDD-base- 3.5-5.8 4.0 Ao root dimensions 2.0-3.7 3.5 LVESD-base- 3.1-4.6 L. Atrium dimensions 1.9-3.8 5.7 Post. Wall thickness 0.8-1.1 1.3 IV septum (thickness) 0.7-1.2 1.4 Post. Wall excursion 0.72-1.3 NORMAL Septal motion ----- Systolic motion R. Ventricular cavity 1.5-2.0 4.5 LVEF 60% 35-40% Paradoxical septal wall motion YES 2-D : PARADOXICAL SEPTAL WALL MOTION--BIATRIAL ENLARGEMENT-- RIGHT VENTRICLE CAVITY ENLARGEMENT--VALVES ARE NORMAL, NO EFFUSION, NO THROMBUS, NORMAL LEFT VENTRICLE SIZE M-MODE: MV: NORMAL AV: NORMAL TV: NORMAL PV: CHAMBER SIZE: ENLARGED BOTH ATRIAL AND RIGHT VENTRICLE CAVITIES WALL MOTION: PARADOXICAL SEPTAL WALL MOTION PERICARDIUM: NORMAL INTERPRETATION: 1. LEFT VENTRICLE HYPERTROPHY WITH MARKEDLY ENLARGED LEFT ATRIAL CAVITY 2. ENLARGED RIGHT VENTRICLE AND RIGHT ATRIAL CAVITIES 3. PARADOXICAL SEPTAL WALL MOTION 4. NORMAL VAL[facility]
[2022-04-11 05:10] LABS: BASOPHILS % (AUTO) 0.3 % (0.0-3.0); EOSINOPHILS # (AUTO) 0.1 K/ul (0.0-0.7); HEMATOCRIT 39.4 % (42.0-52.0); HEMOGLOBIN 12.5 g/dl (14.0-18.0); IMMATURE GRANULOCYTE % (AUTO) 0.2 % (0.0-5.0); LYMPHOCYTES # (AUTO) 1.6 K/uL (0.60-3.4); LYMPHOCYTES % (AUTO) 23.6 (10.0-50.0); MEAN CORPUSCULAR HGB CONC 31.7 (31.8-35.4); MEAN CORPUSCULAR VOLUME 94.7 fl (80.0-94.0); MONOCYTES # (AUTO) 0.7 K/uL (0.4-2.0); NEUTROPHILS # (AUTO) 4.2 K/ul (2.0-6.9); NEUTROPHILS % (AUTO) 62.9 % (42.2-75.2); PLATELET COUNT 203 10^3/uL (140-440); RDW COEFFICIENT OF VARIATION 15.9 % (11.6-14.8); RED BLOOD COUNT 4.16 10^6/ul (4.70-6.10); WHITE BLOOD COUNT 6.64 K/ul (4.2-10.2)
[2022-04-11 05:25] LABS: ALANINE AMINOTRANSFERASE 15.3 U/L (0-50); ALBUMIN 4.01 g/dL (3.5-5.0); ALKALINE PHOSPHATASE 79.3 U/L (56-119); ASPARTATE AMINO TRANSFERASE 29.3 U/L (17-59); BILIRUBIN,TOTAL 0.6 mg/dL (0.2-1.3); CALCIUM 9.8 mg/dL (8.4-10.2); CARBON DIOXIDE 31.9 mmol/L (22-30.0); CHLORIDE 101.8 mmol/L (98-107); CREATININE 1.35 mg/dL (0.60-1.10); GLUCOSE 139.9 mg/dL (74-106); POTASSIUM 4.1 mmol/L (3.5-5.1); SODIUM 139.4 mmol/L (134.5-145); TOTAL PROTEIN 7.04 g/dL (6.3-8.2)
[2022-04-11] MEDS: LASIX TAB PO SCH (05:46)
--- NOTE | 2022-04-11 07:46 | PN ---
DATE OF SERVICE: 04/07/22 SUBJECTIVE: 82 year old white male hospitalized with acute CHF. Condition seems to have improved. He says that he is feeling better, breathing better and the appetite seems to have opened up. REVIEW OF SYSTEMS: CONSTITUTIONAL: No night sweats. No fatigue, malaise, lethargy. No fever or chills. HEENT: Eyes: No visual changes. No eye pain. No eye discharge. ENT: No runny nose. No epistaxis. No sinus pain. No sore throat. No odynophagia. No congestion. RESPIRATORY: No cough, no congestion. No hemoptysis. Less shortness of breath. CARDIOVASCULAR: No angina symptoms. No CHF symptoms. No atypical chest pain for CAD. No palpitations. No PND. No orthopnea. GASTROINTESTINAL: No abdominal pain. No nausea or vomiting. No diarrhea or constipation. No hematemesis. No hematochezia. Appetite has improved. GENITOURINARY: No urgency. No frequency. No dysuria. No hematuria. No obstructive symptoms. No discharge. No pain. No significant abnormal bleeding. MUSCULOSKELETAL: No musculoskeletal pain; no joint swelling. NEUROLOGICAL: No headache. No neck pain. No syncope. No seizures. No dizziness. PSYCHIATRIC: Not anxious. No depression. No suicidal thoughts. No homicidal thoughts. SKIN: No rash. No lesions. No wounds. ENDOCRINE: No unexplained weight loss. No weight gain. HEMATOLOGIC/LYMPHATIC: No anemia. No purpura. No petechiae. No prolonged or excessive bleeding. No palpable lymph nodes. PHYSICAL EXAMINATION: VITAL SIGNS: Temperature 97.6, pulse 73, respiratory rate 18,blood pressure 170/83 and pulse ox 94% on room air. HEENT: Head normocephalic, atraumatic. Eyes: Extraocular muscles are intact. Pupils are equal, round and reactive to light and accommodation. Ears: No lesions. Nose appeared normal. Throat: No exudate or erythema. NECK: Supple. No JVD, no carotid bruit. No lymphadenopathy or thyromegaly. LUNGS:Decreased breath sounds but clear to auscultation. Percussion note normal. Chest symmetrical. HEART: S1, S2, no S3. No murmurs. No cyanosis or clubbing. No ascites. Pulses: Dorsalis pedis and posterior tibial pulses +1 to +2 bilaterally. ABDOMEN: Soft. Nontender. Bowel sounds active. No CVA tenderness. No mass felt. EXTREMITIES: No edema. Full range of motion of all extremities, equal. NEUROLOGIC: No focal deficit. Cranial nerves II through XII are grossly intact. No headache. No double vision. SKIN: Not dry. Intact. Turgor - normal. LYMPHATIC: No palpable lymph nodes/no lymphedema. MUSCULOSKELETAL: Normal joints with no swelling. Muscle tone is normal. LABS: Hgb 12.3, hct 38, WBC 6,600 normal differential, creatinine 1.1, BUN 13, potassium 3.5 ASSESSMENT: 1. CHF seems to be resolving 2. Hypertension still labile PLAN: 1. Continue to monitor telemetry, educations carried out 2. Advised to take his medications regularly 3. Elevate the legs, leg edema is less than what he came in with. 4. Continue IV site 5. Monitor the BNP 6. Maybe at the time of discharge we will do the BNP 7. ABG to be done on room air CONDITION: Stable, improving The patient is DNR. TIME SPENT: More than 30 minutes. Plan and coordination of the patient's care discussed in the presence of nurse. CRISTEL
[2022-04-11] MEDS: GLUCOPHAGE PO SCH (08:33)
[2022-04-11] MEDS: ZYLOPRIM PO SCH (08:33)
[2022-04-11] MEDS: ENTRESTO 24 MG-26 MG TABLET PO SCH (08:33)
--- NOTE | 2022-04-11 08:33 | PN ---
DATE OF SERVICE: 04/08/22 SUBJECTIVE: 82 year old white male hospitalized with acute CHF. The patient is noncompliant of his medications, diet. Advised to take his medications. He doesn't elevate his legs. In any case the patient has been reeducated again about CHF in detail. To weight himself and if he gains more than 2 pounds and he is not doing what he is supposed to and also take an extra Lasix for a couple of days. REVIEW OF SYSTEMS: CONSTITUTIONAL: No night sweats. No fatigue, malaise, lethargy. No fever or chills. HEENT: Eyes: No visual changes. No eye pain. No eye discharge. ENT: No runny nose. No epistaxis. No sinus pain. No sore throat. No odynophagia. No congestion. RESPIRATORY: No cough, no congestion. No hemoptysis. No shortness of breath. CARDIOVASCULAR: No angina symptoms. No CHF symptoms. No atypical chest pain for CAD. No palpitations. No PND. No orthopnea. GASTROINTESTINAL: No abdominal pain. No nausea or vomiting. No diarrhea or constipation. No hematemesis. No hematochezia. GENITOURINARY: No urgency. No frequency. No dysuria. No hematuria. No obstructive symptoms. No discharge. No pain. No significant abnormal bleeding. MUSCULOSKELETAL: No musculoskeletal pain; no joint swelling. NEUROLOGICAL: No headache. No neck pain. No syncope. No seizures. No dizziness. PSYCHIATRIC: Not anxious. No depression. No suicidal thoughts. No homicidal thoughts. SKIN: No rash. No lesions. No wounds. ENDOCRINE: No unexplained weight loss. No weight gain. HEMATOLOGIC/LYMPHATIC: No anemia. No purpura. No petechiae. No prolonged or excessive bleeding. No palpable lymph nodes. PHYSICAL EXAMINATION: VITAL SIGNS: Temperature 97.1, pulse 72, respiratory rate 18, blood pressure 150/87 and pulse ox 93% on room air. HEENT: Head normocephalic, atraumatic. Eyes: Extraocular muscles are intact. Pupils are equal, round and reactive to light and accommodation. Ears: No lesions. Nose appeared normal. Throat: No exudate or erythema. NECK: Supple. No JVD, no carotid bruit. No lymphadenopathy or thyromegaly. LUNGS: Decreased breath sounds but clear to auscultation. Percussion note normal. Chest symmetrical. HEART: S1, S2, no S3. No murmurs. No cyanosis or clubbing. No ascites. Pulses: Dorsalis pedis and posterior tibial pulses +1 to +2 bilaterally. ABDOMEN: Soft. Nontender. Bowel sounds active. No CVA tenderness. No mass felt. EXTREMITIES: No edema. Full range of motion of all extremities, equal. NEUROLOGIC: No focal deficit. Cranial nerves II through XII are grossly intact. No headache. No double vision. SKIN: Not dry. Intact. Turgor - normal. LYMPHATIC: No palpable lymph nodes/no lymphedema. MUSCULOSKELETAL: Normal joints with no swelling. Muscle tone is normal. LABS: Hgb 12.1, hct 37, WBC 4,700 normal differential, creatinine 1.1, BUN 17, potassium 3.4 ASSESSMENT: 1. Acute CHF seems to have subsided 2. Chronic CHF 3. Hypertension 4. Dyslipidemia 5. Chronic lung disease PLAN: 1. Continue Lasix 2. Continue to elevate legs 3. Education carried out about CHF. 4. BNP to be done in the morning. 5. Continue Apixaban 6. K tab to be given twice a day CONDITION: Stable, improving. The patient is DNR. TIME SPENT: More than 30 minutes. Plan and coordination of the patient's care discussed in the presence of nurse. CRISTEL
[2022-04-11] MEDS: LOPRESSOR PO SCH (08:34)
[2022-04-11] MEDS: ELIQUIS PO SCH (08:34)
[2022-04-11] MEDS: K-DUR PO SCH (08:34)
[2022-04-11 14:31] VITALS: BP 124/62; TEMP 97.1
--- NOTE | 2022-04-12 10:13 | PN ---
DATE OF SERVICE: 04/11/22 SUBJECTIVE: The patient was seen and examined with the Nurse Practitioner. The patient's condition has improved. No CHF symptoms noted. We are going to be Aldactone and Cefepime. Discussed with him in detail. ADDENDUM: Yesterday I had talked to scot Oconnell and was okayed to have Hospitalist cover my patient starting from today. Talked to Dr. Dumont and he agreed. Talked to Dr. Moya today and he has agreed. Nursing staff has been informed about it. My patient's will be transferred over to hospitalist services. I saw the patient's this morning. All the patient have agreed to be seen by Nurse Practitioner in my absence and Hospitalist. TIME SPENT: More than 30 minutes. Plan and coordination of the patient's care discussed in the presence of nurse. CRISTEL
--- NOTE | 2022-04-12 14:17 | HP ---
DATE OF SERVICE: 04/06/22 REASON FOR HOSPITALIZATION: CHF HISTORY OF PRESENT ILLNESS: 82 year-old white male hospitalized through the emergency room as he came to the emergency room with signs and symptoms of CHF. Patient had leg edema, crepitations both sides of the lungs and blood gases showed PO2 of 56 with PCO2 of 35 with saturation 91% and that was clearly congestive heart failure. REVIEW OF SYSTEMS: CONSTITUTIONAL: Weakness, fatigue. No fever or chills. HEENT: Eyes: No visual changes. No eye pain. No eye discharge. ENT: No runny nose. No epistaxis. No sinus pain. No sore throat. No odynophagia. No ear pain. No congestion. RESPIRATORY: Shortness of breath on exertion. No hemoptysis. Mild cough. CARDIOVASCULAR: Shortness of breath, orthopnea. GASTROINTESTINAL: Appetite has been declining for the past couple of days. No nausea or vomiting. No diarrhea or constipation. No hematemesis. No hematochezia. GENITOURINARY: No urgency. No frequency. No dysuria. No hematuria. No obstructive symptoms. No discharge. No pain. No significant abnormal bleeding. MUSCULOSKELETAL: Weakness of the muscles. NEUROLOGICAL: No headache. No neck pain. No syncope. No seizures. No dizziness. PSYCHIATRIC: Not anxious. No depression. No suicidal thoughts. No homicidal thoughts. SKIN: No rash. No lesions. No wounds. ENDOCRINE: No unexplained weight loss. No weight gain. HEMATOLOGIC/LYMPHATIC: No anemia. No purpura. No petechiae. No prolonged or excessive bleeding. No palpable lymph nodes. MEDICATIONS: Hydrocodone Tramadol Furosemide Allopurinol Apixaban Metformin Metroprolol Entresto ALLERGIES: Penicillin PAST MEDICAL HISTORY: History of severe hypertension, CVA, generalized osteoarthritis, gouty arthritis, diabetes mellitus, hypertension FAMILY/SOCIAL HISTORY: Patient is nonsmoker, no alcohol abuse, lives with his , all activity of daily living, drives a car, no history of fall PHYSICAL EXAMINATION: GENERAL: Oriented to time, place and person. VITAL SIGNS: Temperature 97.9, pulse 68, respiratory rate 20, blood pressure 167/77, pulse ox 88% on room air HEENT: Normal, looks somewhat pale. Head normocephalic, atraumatic. Eyes: Extraocular muscles are intact. Pupils are equal, round and reactive to light and accommodation. Ears: No lesions. Nose appeared normal. Throat: No exudate or erythema. NECK: Supple. JVD 2.0 cm, no carotid bruit. No lymphadenopathy or thyromegaly. LUNGS: Crepitations bilaterally. Percussion note normal. Chest symmetrical. HEART: S1, S2, S3 present. No murmur. No cyanosis or clubbing. No ascites. +1 pitting edema. Pulses: Dorsalis pedis and posterior tibial pulses +1 bilaterally. ABDOMEN: Soft. Nontender. Bowel sounds active. No CVA tenderness. No mass felt. EXTREMITIES: +1 pitting edema. Full range of motion of all extremities, equal. NEUROLOGIC: No focal deficit. Cranial nerves II through XII are grossly intact. No headache, no double vision or headache. SKIN: Not dry. Intact. Turgor - normal. LYMPHATIC: No palpable lymph nodes/no lymphedema. MUSCULOSKELETAL: Normal joints with no swelling. Muscle tone is normal. LABS; ABG as mentioned above PO2 56, PCO2 35, PH 7.5 with 91% saturation on room air. 12.6 hemoglobin, 38 Hct, WBC 5,800 normal. Differential sodium 140, potassium 8.2, creatinine 1.1, BUN 15. EKG sinus rhythm, PS is noted with one PVC ASSESSMENT: 1. CHF 2. History of CHF 3. Hypertension 4..Hypokalemia 5. Generalized osteoarthritis 6. Diabetes mellitus PLAN: 1. Continue all home medications. 2. Increase Lasix to 40 mg 3. Continue Entresto, Lasix and supplements to be given K-Dur 20 meq twice a day 4. Blood gases to be done and monitored, Telemetry to be monitored. 5. Education was carried out about congestive heart failure in detail. Daughter is present in the room. According to the daughter the patient is noncompliant and doesn't take his medications regularly. 6. He is to keep his legs are elevated. TIME SPENT: More than 70 minutes. MTDD
--- NOTE | 2022-04-19 14:22 | DS ---
DATE OF SERVICE: 04/11/22 FINAL DIAGNOSIS: 1. 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 COPD 3. Underlying chronic kidney, stage 2 4. Leg edema 5. Atrial fib DISCHARGE INSTRUCTIONS: Followup appointment in the office next week. HOSPITAL COURSE: 82 year old white male who came in through the emergency room with worsening shortness of breath. He was found to have an elevated NT proBNP of 8,000. He was admitted and given Lasix 40 mg IV x1 in the emergency room; he was already on 20 mg of Lasix at home. We increased his Lasix to 40 mg PO. On two different occasions he also received IV Lasix doses of 20 mg. We increased his Entresto to the next dose 49/[address] Aldana performed an echo since it had been about four months since he started the Entresto and there was not much change - ejection fraction was about 35%. He does have combination of right and left sided heart failure. We have started him on Aldactone 25 mg PO daily to aid in the right sided heart failure. He is already on Eliquis for the underlying afib. Rate has been controlled and last night he did have some instances of a flutter. He was asymptomatic and his heart rate has remained in the 70's and 80's. He has been up and about eating well. We will discharge him home on increased Entresto dose and new prescription of Aldactone. We do believe that there is some component of medication noncompliance as to why his CHF progressed in such a drastic manner requiring hospitalization. Again, at this point, he is down about 7 lbs from admission. We will discharge him in stable condition. We discussed the importance of medication compliance. TIME SPENT: More than 60 minutes. CRISTEL
--- NOTE | 2022-04-19 14:33 | PN ---
DATE OF SERVICE: 04/11/22 SUBJECTIVE: Patient is examined, he has been doing well. He is up and about in his room. He does not qualify for home oxygen. He is feeling much better. He is down approximately 7 lbs. Patient did have some telemetry strips that showed possible fib/flutter. He has underlying afib. He was asymptomatic and did not experience any shortness of breath or chest pain. Heart rate has remained under 100 even with exertion today. Heart rate has been in the 70's and 80's. We will continue to monitor this with his care. REVIEW OF SYSTEMS: CONSTITUTIONAL: No night sweats. Fatigue, malaise, lethargy. No fever or chills. HEENT: Eyes: No visual changes. No eye pain. No eye discharge. ENT: No runny nose. No epistaxis. No sinus pain. No sore throat. No odynophagia. No congestion. RESPIRATORY: No cough, no congestion. No hemoptysis. No shortness of breath. CARDIOVASCULAR: No angina symptoms. No CHF symptoms. No atypical chest pain for CAD. No palpitations. No PND. No orthopnea. GASTROINTESTINAL: No abdominal pain. No nausea or vomiting. No diarrhea or constipation. No hematemesis. No hematochezia. GENITOURINARY: No urgency. No frequency. No dysuria. No hematuria. No obstructive symptoms. No discharge. No pain. No significant abnormal bleeding. MUSCULOSKELETAL: Trace leg edema. No musculoskeletal pain; no joint swelling. NEUROLOGICAL: No headache. No neck pain. No syncope. No seizures. No dizziness. PSYCHIATRIC: Not anxious. No depression. No suicidal thoughts. No homicidal thoughts. SKIN: No rash. No lesions. No wounds. ENDOCRINE: No unexplained weight loss. No weight gain. HEMATOLOGIC/LYMPHATIC: No anemia. No purpura. No petechiae. No prolonged or excessive bleeding. No palpable lymph nodes. PHYSICAL EXAMINATION: HEENT: Head normocephalic, atraumatic. Eyes: Extraocular muscles are intact. Pupils are equal, round and reactive to light and accommodation. Ears: No lesions. Nose appeared normal. Throat: No exudate or erythema. NECK: Supple. No JVD, no carotid bruit. No lymphadenopathy or thyromegaly. LUNGS: Clear to auscultation. Percussion note normal. Chest symmetrical. HEART: Irregular heart rate. S1, S2, no S3. No murmurs. No cyanosis or clubbing. No ascites. Pulses: Dorsalis pedis and posterior tibial pulses +1 to +2 bilaterally. ABDOMEN: Soft. Nontender. Bowel sounds active. No CVA tenderness. No mass felt. EXTREMITIES: Trace pedal edema. Full range of motion of all extremities, equal. NEUROLOGIC: No focal deficit. Cranial nerves II through XII are grossly intact. No headache. No double vision. SKIN: Not dry. Intact. Turgor - normal. LYMPHATIC: No palpable lymph nodes/no lymphedema. MUSCULOSKELETAL: Normal joints with no swelling. Muscle tone is normal. ASSESSMENT: 1. Acute CHF 2. Afib 3. COPD 4. Chronic kidney disease, stage 2 5. Combination diastolic and systolic heart failure PLAN: 1. Will discharge home 2. He is to go home on his increased dose of Entresto 49/51 mg one BID 3. Discontinue Potassium 4. Aldactone 25 daily Q 5. He is to continue with increased rest at home. 6. We will follow up with him in the office next week. : TIME SPENT: More than 30 minutes. Plan and coordination of the patient's care discussed in the presence of nurse. CRISTEL
== END 2022-04-11 16:05 | disposition home or self-care (01) | DRG 291 ==
LOC: ED 09:25 → MEDSURG A 11:19
PROVIDERS: ADMIT Internal Medicine; ATTEND Internal Medicine
DX: E78.5 Hyperlipidemia, unspecified; I50.21 Acute systolic (congestive) heart failure; E11.22 Type 2 diabetes mellitus with diabetic chronic kidney disease; J44.9 Chronic obstructive pulmonary disease, unspecified; Z91.14 Patient's other noncompliance with medication regimen; I11.0 Hypertensive heart disease with heart failure; Z86.73 Personal history of transient ischemic attack (TIA), and cerebral infarction without residual deficits; R60.9 Edema, unspecified; Z79.01 Long term (current) use of anticoagulants; Z79.899 Other long term (current) drug therapy; I48.91 Unspecified atrial fibrillation; R06.02 Shortness of breath; E87.6 Hypokalemia; R53.1 Weakness; Z79.84 Long term (current) use of oral hypoglycemic drugs; Z51.81 Encounter for therapeutic drug level monitoring; Z20.822 Contact with and (suspected) exposure to COVID-19; R09.02 Hypoxemia; N18.2 Chronic kidney disease, stage 2 (mild); M15.0 Primary generalized (osteo)arthritis

== ENCOUNTER 2022-04-24 12:56 | Inpatient (IN) ==
--- NOTE | 2022-04-24 14:03 | ED.PDOC ---
General ED Provider: Dr. SABI YONUG MD Chief Complaint: Respiratory Complaint Stated Complaint: Patient was recently released from the hospital after having been treated for CHF. He presents now with dyspnea on exertion, orthopnea and increased peripheral edema. Denies fever, chills, cough, chest pain, palpitations, syncope. He did have a follow up appointment 5 days ago. Time Seen by Provider: 04/24/22 14:03 Mode of Arrival: Walk-In Information Source: Patient and Family Primary Care Provider: DANILO ROBERTSON MD Nursing and Triage Documentation Reviewed and Agree: Yes Does patient meet sepsis criteria?: No System Inflammatory Response Syndrome: Not Applicable Sepsis Protocol: For patient's 13 years and over: Temp is 96.8 and below OR 101 and greater Pulse >90 BPM Resp >20/minute Acutely Altered Mental Status Are patient's symptoms suggestive of a new infection, such as: -Pneumonia -Skin, Soft Tissue -Endocarditis -UTI -Bone, Joint Infection -Implantable Device -Acute Abdominal Infection -Wound Infection -Meningitis -Blood Stream Catheter Infection -Unknown Respiratory Complaint Exam Shortness of Air Complaint/Exam Symptoms Are: Still present Timing: Constant Initial Severity: Mild Current Severity: Moderate Character: Reports Dyspnea on exertion and Orthopnea Aggravating: Reports Movement and Recumbent position Alleviating: Reports None Associated Signs and Symptoms: Reports Edema Related History: Reports Similar episode History of Healthcare-Acquired Pneumonia: No Pulmonary Embolism Risk Factors: Reports None Cardiac Risk Factors: Reports Diabetes and CHF Pseudomonas Risk Factors: Reports None Tuberculosis Risk Factors: Reports None Home Oxygen Use: No Respiratory Distress: None Stridor Present: No Tracheal Deviation: No Subcutaneous Emphysema: No Accessory Muscle Use: No Retractions: Not Present Diminished Breath Sounds: No Prolonged Expiratory Phase: No Unable to Speak Full Sentences: No Fatigue: No Leg Swelling: Yes Charlie's Sign Present: No Grunting Respirations: No Kussmaul Respirations: No Review of Systems Review Of Systems Constitutional: Reports No symptoms Eyes: Reports No symptoms Ears, Nose, Mouth, Throat: Reports No symptoms Respiratory: Reports Orthopnea and Short of air Cardiac: Reports Edema GI: Reports No symptoms : Reports No symptoms Musculoskeletal: Reports No symptoms Skin: Reports No symptoms Neurological: Reports No symptoms Endocrine: Reports No symptoms Hematologic/Lymphatic: Reports No symptoms All Other Systems: Reviewed and Negative [facility] Medical History (Updated 04/24/22 @ 15:12 by SABI YOUNG MD) CHF (congestive heart failure) CVA (cerebral vascular accident) Diabetes mellitus Dyslipidemia Esophageal dilatation Gout HTN (hypertension) Osteoarthritis of right knee Polyarthritis Family History (Updated 04/06/22 @ 12:41 by CATHI CASTREJON, RN) Mother Ovarian cancer BROTHER Heart transplanted Social History (Updated 04/06/22 @ 12:41 by CATHI CASTREJON RN) Smoking and tobacco status: Former smoker Substance use type: does not use Physical Exam Physical Exam Appearance: Reports Ill-appearing, Well-nourished, Thin and Other (Patient alert and in NAD. He is in no respiratory distress.) Ill-appearing: Mild Pain Distress: None Eyes: Reports Not Examined ENT: Reports Nose normal and Oropharynx normal Neck: Supple Respiratory: Reports Airway patent, Breath sounds clear and Breath sounds equal Cardiovascular: Reports RRR, No rub and No murmur GI/: Reports Soft, Nontender, No masses and Bowel sounds normal Musculoskeletal: Reports Normal strength and Edema (Moderate to marked bilateral edema.) Skin: Reports Warm and Dry Neurological: Reports Motor intact, Alert and Oriented Psychiatric: Reports Affect appropriate and Mood appropriate Interpretation Radiology Interpretation Radiology Interpretation By: Radiologist Exam Interpreted: Portable CXR (small right sided effusion, bilateral pneumonia) EKG Interpretation Time of EKG #1: 14:09 Rate: Normal Rhythm: Other (atrial fibrillation) Ectopy: PVCs [place]: [place] Interpretation: RBBB, atrial fibrillation with rate of 72bpm, PVCS, inverted T waves V1-V6 Physician Notification Case Discussed Physician Notified: Dr Robertson Time of Notification: 15:41 Comments: Patient to be admitted for exacerbation of CHF and bilateral pneumonia Critical Care Note Critical Care Note Total Critical Care Time (mins): 0 Course Course Hematology/Chemistry: 04/24/22 14:17 04/24/22 14:17 Orders, Labs, Meds: Lab Review 04/24/22 04/24/22 04/24/22 14:10 14:10 14:17 WBC 5.06 RBC 4.31 L Hgb 13.0 L Hct 40.5 L MCV 94.0 MCH 30.2 MCHC 32.1 RDW Coeff of Edita 15.2 H Plt Count 161 Immature Gran % (Auto) 0.2 Neut % (Auto) 68.9 Lymph % (Auto) 19.8 [place] % (Auto) 9.1 Eos % (Auto) 1.6 Baso % (Auto) 0.4 Neut # (Auto) 3.5 Lymph # (Auto) 1.0 [place] # (Auto) 0.5 Eos # (Auto) 0.1 Baso # (Auto) 0.0 Immature Gran # (Auto) 0.0 Puncture Site Base Excess O2 Saturation ABG pH ABG pCO2 ABG pO2 ABG HCO3 ABG Total CO2 Sky Test Hemoglobin Oxyhemoglobin Carboxyhemoglobin Total Hemoglobin FiO2 % Sodium Potassium Chloride Carbon Dioxide Anion Gap BUN Creatinine Estimated GFR (MDRD) BUN/Creatinine Ratio Glucose Calcium Total Bilirubin AST ALT Alkaline Phosphatase Troponin I NT-Pro-B Natriuret Pep Total Protein Albumin Globulin Albumin/Globulin Ratio Influ A Molecular Assay Negative by naat Influ B Molecular Assay Negative by naat SARS CoV-2 RNA Rapid DIMITRIS Negative 04/24/22 04/24/22 14:17 15:10 WBC RBC Hgb Hct MCV MCH MCHC RDW Coeff of [place]ita Plt Count Immature Gran % (Auto) Neut % (Auto) Lymph % (Auto) [place] % (Auto) Eos % (Auto) Baso % (Auto) Neut # (Auto) Lymph # (Auto) [place] # (Auto) Eos # (Auto) Baso # (Auto) Immature Gran # (Auto) Puncture Site Rrad Base Excess 4.1 H O2 Saturation 95.8 ABG pH 7.49 H ABG pCO2 36.0 ABG pO2 74.0 L ABG HCO3 27.4 ABG Total CO2 28.5 H Sky Test Pos Hemoglobin 1.3 Oxyhemoglobin 93.9 L Carboxyhemoglobin 2.0 H Total Hemoglobin 12.7 FiO2 % 21.0 Sodium 140.2 Potassium 3.95 Chloride 103.9 Carbon Dioxide 29.4 Anion Gap 10.85 BUN 15.0 Creatinine 1.48 H Estimated GFR (MDRD) 46.00 BUN/Creatinine Ratio 10.13 Glucose 180.9 H Calcium 9.29 Total Bilirubin 0.52 AST 21.8 ALT 14.6 Alkaline Phosphatase 83.4 Troponin I < 0.012 NT-Pro-B Natriuret Pep 6350.000 H Total Protein 6.92 Albumin 3.87 Globulin 3.05 Albumin/Globulin Ratio 1.26 Influ A Molecular Assay Influ B Molecular Assay SARS CoV-2 RNA Rapid DIMITRIS Orders Category Date Time Status ABG DRAW REQUEST Stat CARDIO 04/24/22 14:54 Completed EKG-(ED ONLY) Stat CARDIO 04/24/22 14:04 Completed Saline Lock [ED IV/MEDIPORT/POWERPORT] .ONCE EMERGENCY 04/24/22 14:59 Active ABG COOX Stat LAB 04/24/22 15:10 Completed BLOOD CULTURE (ED ONLY) Stat LAB 04/24/22 15:18 Received CBC W/ AUTO DIFF Stat LAB 04/24/22 14:17 Completed CMP [COMPREHENSIVE METABOLIC PANEL] Stat LAB 04/24/22 14:17 Completed COVID [SARS COV-2 RNA RAPID DIMITRIS] Stat LAB 04/24/22 14:10 Completed FLU A & B MOLECULAR [FLU A/B MOLECULAR] Stat LAB 04/24/22 14:10 Completed LACTIC ACID Stat LAB 04/24/22 15:18 Received NT-PROBNP Stat LAB 04/24/22 14:17 Completed TROPONIN I Stat LAB 04/24/22 14:17 Completed 0.9 % Sodium Chloride [Saline Flush] MEDS 04/24/22 14:59 Active 1 syr IVF PRN PRN Furosemide [Lasix] MEDS 04/24/22 14:59 Discontinued 80 mg IVP ONCE STA Furosemide [Lasix] MEDS 04/24/22 14:59 Discontinued 80 mg IVP ONCE STA CXR [CHEST, 1V AP ONLY] Stat RADS 04/24/22 14:03 Completed Medications Generic Name Dose Route Start Last Admin Trade Name Freq PRN Reason Stop Dose Admin Sodium Chloride 1 syr 04/24/22 14:59 0.9% Sodium Chloride 10 Ml Disp.Syrin IVF PRN PRN To flush IV Discontinued Medications Generic Name Dose Route Start Last Admin Trade Name Freq PRN Reason Stop Dose Admin Furosemide 80 mg 04/24/22 14:59 04/24/22 15:02 Furosemide Inj 100 Mg/10 Ml Vial IVP 04/24/22 15:00 Not Given ONCE STA Furosemide 80 mg 04/24/22 14:59 04/24/22 15:17 Furosemide Inj 100 Mg/10 Ml Vial IVP 04/24/22 15:00 80 mg ONCE STA Administration Vital Signs: Temp Pulse Resp BP Pulse Ox 04/24/22 13:02 96.0 F L 86 20 146/84 H 93 L Discharge Plan Discharge Patient Disposition: ADMITTED INPATIENT Discharge Problem: Acute exacerbation of CHF (congestive heart failure), Bilateral pneumonia Prescriptions: No Action hydrocodone-acetaminophen 1 TAB tablet 1 ea PO BID PRN (Reason: PAIN) Rx Instructions: [place] 5-325 tramadol 50 mg tablet 50 mg PO TID PRN (Reason: Pain) Label Comments: TAKE ONE TABLET BY MOUTH THREE TIMES DAILY NEEDED Eliquis 5 mg Tablet 5 mg PO BID Qty: 60 0RF Rx Instructions: TAKE 1 TAB TWICE DAILY (AVOID ALL NSAIDS) metoprolol tartrate 50 mg Tablet 50 mg PO BID Qty: 60 0RF Rx Instructions: TAKE 50MG TWICE DAILY Entresto 49-51 mg Tablet 1 tab PO BID 30 Days Qty: 60 0RF spironolactone [Aldactone] 25 mg Tablet 25 mg PO DAILY 30 Days Qty: 30 0RF furosemide 40 mg Tablet 40 mg PO QDAC 0RF diltiazem HCl 60 mg tablet 60 mg PO BID Label Comments: TAKE ONE TABLET BY MOUTH TWICE DAILY metformin 500 mg tablet 500 mg PO BID Rx Instructions: TAKE 500MG DAILY allopurinol 100 mg tablet 200 mg PO BID Rx Instructions: TAKE 2 TABS (200MG) DAILY Did you review [place] [employer]IC SIGNAL TECHNICIAN for ALL controlled substances?: Not Applicable ED Provider: SABI YOUNG Condition: Serious Physician Progress Note: []
[2022-04-24 14:21] LABS: BASOPHILS % (AUTO) 0.4 % (0.0-3.0); EOSINOPHILS # (AUTO) 0.1 K/ul (0.0-0.7); EOSINOPHILS % (AUTO) 1.6 % (0.0-7.0); HEMATOCRIT 40.5 % (42.0-52.0); IMMATURE GRANULOCYTE % (AUTO) 0.2 % (0.0-5.0); LYMPHOCYTES % (AUTO) 19.8 (10.0-50.0); MEAN CORPUSCULAR HEMOGLOBIN 30.2 pg (27.0-31.0); MEAN CORPUSCULAR HGB CONC 32.1 (31.8-35.4); MONOCYTES # (AUTO) 0.5 K/uL (0.4-2.0); MONOCYTES % (AUTO) 9.1 (0-10); NEUTROPHILS # (AUTO) 3.5 K/ul (2.0-6.9); NEUTROPHILS % (AUTO) 68.9 % (42.2-75.2); PLATELET COUNT 161 10^3/uL (140-440); RDW COEFFICIENT OF VARIATION 15.2 % (11.6-14.8); RED BLOOD COUNT 4.31 10^6/ul (4.70-6.10); WHITE BLOOD COUNT 5.06 K/ul (4.2-10.2)
[2022-04-24 14:33] LABS: ALANINE AMINOTRANSFERASE 14.6 U/L (0-50); ALBUMIN 3.87 g/dL (3.5-5.0); ALKALINE PHOSPHATASE 83.4 U/L (56-119); ASPARTATE AMINO TRANSFERASE 21.8 U/L (17-59); BILIRUBIN,TOTAL 0.52 mg/dL (0.2-1.3); CALCIUM 9.29 mg/dL (8.4-10.2); CARBON DIOXIDE 29.4 mmol/L (22-30.0); CHLORIDE 103.9 mmol/L (98-107); CREATININE 1.48 mg/dL (0.60-1.10); GLUCOSE 180.9 mg/dL (74-106); POTASSIUM 3.95 mmol/L (3.5-5.1); SODIUM 140.2 mmol/L (134.5-145); TOTAL PROTEIN 6.92 g/dL (6.3-8.2)
[2022-04-24] MEDS ORDERED: LASIX TAB PO STA (14:45)
--- NOTE | 2022-04-24 14:49 | DI ---
EXAM: Chest one view HISTORY: Dyspnea COMPARISON: 04/06/2022 TECHNIQUE: Single view of the chest was performed FINDINGS: Small right pleural effusion. Consolidation and/or atelectasis. Mild left basilar atelec tasis and/or pneumonia. Minimal linear density left lung apex is unchanged from radiograph 6. No visible pneumothorax. Heart is enlarged. Mediastinal contour unchanged, noting atheroscleros is. Cervical spinal fusion hardware. IMPRESSION: 1. Small right pleural effusion with adjacent pneumonia and/or atelectasis. Mild left basilar atele ctasis and/or pneumonia. 2. Cardiomegaly
[2022-04-24 14:54] LABS: TROPONIN I < 0.012 ng/ml (0.0000-0.120)
[2022-04-24] MEDS ORDERED: LASIX IVP STA ×2 (14:59)
[2022-04-24 15:02] LABS: SARS COV-2 RNA RAPID NAAT NEGATIVE (NEGATIVE)
[2022-04-24 15:16] LABS: ABG O2 HGB 93.9 % (95-100); ABG PH 7.49 (7.35-7.45); BEecf 4.1 (-2.0-3.0); HCO3 27.4 (21-28); MetHb 1.3 (0-1.5); TCO2 28.5 (19-24); sO2 95.8 % (94-98); tHb 12.7 g/dl (11.7-17.4)
[2022-04-24 15:16] LABS: MOLECULAR FLU A NEGATIVE BY NAAT (NEGATIVE); MOLECULAR FLU B NEGATIVE BY NAAT (NEGATIVE)
--- NOTE | 2022-04-24 15:56 | PCM ---
Chief Complaint Chief Complaint: dyspnea and increased peripheral edema History of Present Illness History of Present Illness: Patient presents with increasing peripheral edema and exertional dyspnea. He also was found to have bilateral pneumonia on CXR. Review of Systems Constitutional: Reports Weakness Eyes: Reports No symptoms Ears: Reports No symptoms Nose: Reports No symptoms Throat: Reports No symptoms Mouth: Reports No symptoms Respiratory: Reports Shortness of air Cardiovascular: Reports Orthopnea and Edema Gastrointestinal: Reports No symptoms Genitourinary: Reports No symptoms Neurological: Reports No symptoms Musculoskeletal: Reports No symptoms Skin: Reports No symptoms Immunology: Reports No symptoms Hematology: Reports No symptoms Endocrine: Reports No symptoms Psychiatric: Reports No symptoms Allergies Allergies Allergy/AdvReac Type Severity Reaction Status Date / Time oxycodone [From OxyContin] AdvReac Verified 04/24/22 13:00 Penicillins AdvReac Verified 04/24/22 13:00 PFSH Medical History (Updated 04/24/22 @ 15:57 by SABI YOUNG MD) CHF (congestive heart failure) CVA (cerebral vascular accident) Diabetes mellitus Dyslipidemia Esophageal dilatation Gout HTN (hypertension) Osteoarthritis of right knee Polyarthritis Family History (Updated 04/06/22 @ 12:41 by CATHI CASTREJON RN) Mother Ovarian cancer BROTHER Heart transplanted Social History (Updated 04/06/22 @ 12:41 by CATHI CASTREJON RN) Smoking and tobacco status: Former smoker Substance use type: does not use Medications Medications: Medications Generic Name Dose Route Start Last Admin Trade Name Freq PRN Reason Stop Dose Admin Furosemide 80 mg 04/24/22 21:00 Furosemide Inj 100 Mg/10 Ml Vial IVP BID MOMO Ceftriaxone Sodium 2 gm/ 100 mls @ 100 mls/hr 04/24/22 16:00 Sodium Chloride IV 04/27/22 15:59 Q24H MOMO Azithromycin 500 mg/ Sodium 250 mls @ 125 mls/hr 04/24/22 16:00 Chloride IV 04/27/22 15:59 Q24H MOMO Sodium Chloride 1 syr 04/24/22 14:59 0.9% Sodium Chloride 10 Ml Disp.Syrin IVF PRN PRN To flush IV Body Composition Height: 5 ft 9 in Weight: 82.157 kg Body Mass Index (BMI): 26.7 Vital Signs Temperature: 96.0 F Pulse Rate: 86 Respiratory Rate: 20 Blood Pressure: 146/84 O2 Sat by Pulse Oximetry: 93 Physical Examination Appearance: Reports Ill-appearing, No pain distress, Well-nourished and Other (Elderly gentleman who appears to be both acutely and chronically ill. No respiratory distress.) Ill-appearing: Mild Pain Distress: None Eyes: Reports Not Examined ENT: Reports Nose normal and Oropharynx normal Neck: Supple (JVD present) Respiratory: Reports Airway patent, Breath sounds clear, Breath sounds equal and Breath sounds diminished (bilateral bases) Cardiovascular: Reports RRR, No rub, No murmur and Other (marked bilateral pitting edema) GI/: Reports Soft, Nontender, No masses and Bowel sounds normal Musculoskeletal: Reports Normal strength and ROM intact Skin: Reports Warm, Dry and Normal color Neurological: Reports Sensation intact, Motor intact, Alert and Oriented Psychiatric: Reports Affect appropriate and Mood appropriate Lab/Tests/Diagnostic Imaging Lab/Tests/Diagnostic Imaging: Lab Review 04/24/22 04/24/22 04/24/22 14:10 14:10 14:17 WBC 5.06 RBC 4.31 L Hgb 13.0 L Hct 40.5 L MCV 94.0 MCH 30.2 MCHC 32.1 RDW Coeff of Edita 15.2 H Plt Count 161 Immature Gran % (Auto) 0.2 Neut % (Auto) 68.9 Lymph % (Auto) 19.8 Fisher % (Auto) 9.1 Eos % (Auto) 1.6 Baso % (Auto) 0.4 Neut # (Auto) 3.5 Lymph # (Auto) 1.0 Fisher # (Auto) 0.5 Eos # (Auto) 0.1 Baso # (Auto) 0.0 Immature Gran # (Auto) 0.0 Puncture Site Base Excess O2 Saturation ABG pH ABG pCO2 ABG pO2 ABG HCO3 ABG Total CO2 Sky Test Hemoglobin Oxyhemoglobin Carboxyhemoglobin Total Hemoglobin FiO2 % Sodium Potassium Chloride Carbon Dioxide Anion Gap BUN Creatinine Estimated GFR (MDRD) BUN/Creatinine Ratio Glucose Lactic Acid Calcium Total Bilirubin AST ALT Alkaline Phosphatase Troponin I NT-Pro-B Natriuret Pep Total Protein Albumin Globulin Albumin/Globulin Ratio Influ A Molecular Assay Negative by naat Influ B Molecular Assay Negative by naat SARS CoV-2 RNA Rapid DIMITRIS Negative 04/24/22 04/24/22 04/24/22 14:17 15:10 15:18 WBC RBC Hgb Hct MCV MCH MCHC RDW Coeff of Edita Plt Count Immature Gran % (Auto) Neut % (Auto) Lymph % (Auto) Fisher % (Auto) Eos % (Auto) Baso % (Auto) Neut # (Auto) Lymph # (Auto) Fisher # (Auto) Eos # (Auto) Baso # (Auto) Immature Gran # (Auto) Puncture Site Rrad Base Excess 4.1 H O2 Saturation 95.8 ABG pH 7.49 H ABG pCO2 36.0 ABG pO2 74.0 L ABG HCO3 27.4 ABG Total CO2 28.5 H Sky Test Pos Hemoglobin 1.3 Oxyhemoglobin 93.9 L Carboxyhemoglobin 2.0 H Total Hemoglobin 12.7 FiO2 % 21.0 Sodium 140.2 Potassium 3.95 Chloride 103.9 Carbon Dioxide 29.4 Anion Gap 10.85 BUN 15.0 Creatinine 1.48 H Estimated GFR (MDRD) 46.00 BUN/Creatinine Ratio 10.13 Glucose 180.9 H Lactic Acid 2.06 Calcium 9.29 Total Bilirubin 0.52 AST 21.8 ALT 14.6 Alkaline Phosphatase 83.4 Troponin I < 0.012 NT-Pro-B Natriuret Pep 6350.000 H Total Protein 6.92 Albumin 3.87 Globulin 3.05 Albumin/Globulin Ratio 1.26 Influ A Molecular Assay Influ B Molecular Assay SARS CoV-2 RNA Rapid DIMITRIS Orders Category Date Time Status ADMIT PATIENT INPATIENT .TO [facility] [place] (MONITORED BED) ADMISSION 04/24/22 15:42 Active ABG DRAW REQUEST Stat CARDIO 04/24/22 14:54 Completed EKG-(ED ONLY) Stat CARDIO 04/24/22 14:04 Completed ACCUCHECK (MED/SURG, SCU) [BLOOD GLUCOSE MONITORING ( CARE 04/24/22 15:49 Active MED/SURG)] 0630,1100,1700,2100 ACTIVITY .Up ad Sangeeta CARE 04/24/22 15:42 Active ELEVATE AFFECTED EXTREMITY .ONCE CARE 04/24/22 15:45 Active GIVE HS SNACK 2100 CARE 04/24/22 15:49 Active INTAKE & OUTPUT Q8HR CARE 04/24/22 15:42 Active IP: INSERT SALINE LOCK ONCE CARE 04/24/22 15:42 Active TELEMETRY MONITORING TELE CARE 04/24/22 15:42 Active VITAL SIGNS Q4HR CARE 04/24/22 15:43 Active VITAL SIGNS Q8HR CARE 04/24/22 15:42 Active ADA 2000 CHELA DIET DIETARY 04/24/22 Dinner Ordered HS SNACK DIETARY 04/24/22 Dinner Ordered Saline Lock [ED IV/MEDIPORT/POWERPORT] .ONCE EMERGENCY 04/24/22 14:59 Active ABG COOX Stat LAB 04/24/22 15:10 Completed BLOOD CULTURE (ED ONLY) Stat LAB 04/24/22 15:18 Received BNP [NT-PROBNP] Q3D LAB 04/24/22 15:42 Ordered BNP [NT-PROBNP] Stat LAB 04/24/22 Ordered CBC W/ AUTO DIFF DAILY@0600 LAB 04/25/22 06:00 Ordered CBC W/ AUTO DIFF DAILY@0600 LAB 04/26/22 06:00 Ordered CBC W/ AUTO DIFF Stat LAB 04/24/22 14:17 Completed CMP [COMPREHENSIVE METABOLIC PANEL] Stat LAB 04/24/22 14:17 Completed COMPREHENSIVE METABOLIC PANEL DAILY@0600 LAB 04/25/22 06:00 Ordered COMPREHENSIVE METABOLIC PANEL DAILY@0600 LAB 04/26/22 06:00 Ordered COVID [SARS COV-2 RNA RAPID DIMITRIS] Stat LAB 04/24/22 14:10 Completed FLU A & B MOLECULAR [FLU A/B MOLECULAR] Stat LAB 04/24/22 14:10 Completed LACTIC ACID Stat LAB 04/24/22 15:18 Completed NT-PROBNP Stat LAB 04/24/22 14:17 Completed TROPONIN I Stat LAB 04/24/22 14:17 Completed 0.9 % Sodium Chloride [Saline Flush] MEDS 04/24/22 14:59 Active 1 syr IVF PRN PRN Azithromycin Inj [Zithromax] 500 mg MEDS 04/24/22 16:00 Ordered 0.9 % Sodium Chloride [Sodium Chloride] 250 ml IV Q24H Ceftriaxone Sodium [Rocephin 2 gm Vial] 2 gm MEDS 04/24/22 16:00 Ordered 0.9 % Sodium Chloride [Sodium Chloride 100Ml] 100 ml IV Q24H Furosemide [Lasix] MEDS 04/24/22 21:00 Ordered 80 mg IVP BID Furosemide [Lasix] MEDS 04/24/22 14:59 Discontinued 80 mg IVP ONCE STA Furosemide [Lasix] MEDS 04/24/22 14:59 Discontinued 80 mg IVP ONCE STA RESUSCITATION STATUS Routine OTHERS 04/24/22 15:42 Ordered CXR [CHEST, 1V AP ONLY] Stat RADS 04/24/22 14:03 Completed Medications Generic Name Dose Route Start Last Admin Trade Name Freq PRN Reason Stop Dose Admin Furosemide 80 mg 04/24/22 21:00 Furosemide Inj 100 Mg/10 Ml Vial IVP BID MOMO Ceftriaxone Sodium 2 gm/ 100 mls @ 100 mls/hr 04/24/22 16:00 Sodium Chloride IV 04/27/22 15:59 Q24H MOMO Azithromycin 500 mg/ Sodium 250 mls @ 125 mls/hr 04/24/22 16:00 Chloride IV 04/27/22 15:59 Q24H MOMO Sodium Chloride 1 syr 04/24/22 14:59 0.9% Sodium Chloride 10 Ml Disp.Syrin IVF PRN PRN To flush IV Discontinued Medications Generic Name Dose Route Start Last Admin Trade Name Freq PRN Reason Stop Dose Admin Furosemide 80 mg 04/24/22 14:59 04/24/22 15:02 Furosemide Inj 100 Mg/10 Ml Vial IVP 04/24/22 15:00 Not Given ONCE STA Furosemide 80 mg 04/24/22 14:59 04/24/22 15:17 Furosemide Inj 100 Mg/10 Ml Vial IVP 04/24/22 15:00 80 mg ONCE STA Administration Assessment (1) Acute exacerbation of CHF (congestive heart failure): Status: Acute Code(s): I50.9 - Heart failure, unspecified SNOMED Code(s): 861500096 (2) Bilateral pneumonia: Status: Acute Code(s): J18.9 - Pneumonia, unspecified organism SNOMED Code(s): 005310747 (3) Renal insufficiency: Status: Acute Code(s): N28.9 - Disorder of kidney and ureter, unspecified SNOMED Code(s): 999442459 Plan Plan: Patient will be admitted for diuresis and probable medication change for his CHF . He will receive IV ATBX for his pneumonia.
[2022-04-24] MEDS ORDERED: ROCEPHIN 2 GM VIAL 2 GM in SODIUM CHLORIDE 100ML 100 ML IV SCH (16:00)
[2022-04-24] MEDS ORDERED: ZITHROMAX 500 MG in SODIUM CHLORIDE 250 ML IV SCH (16:00)
[2022-04-24] MEDS ORDERED: ROCEPHIN 2 GM VIAL ONE (16:04)
[2022-04-24 17:30] LABS: BILIRUBIN,URINE Negative (NEGATIVE); CLARITY,URINE Clear (CLEAR); COLOR,URINE Yellow (YELLOW); GLUCOSE, URINE (UA) Negative (NEGATIVE); KETONES,URINE Negative (NEGATIVE); LEUKOCYTE ESTERASE ,URINE Negative (NEGATIVE); NITRITE,URINE Negative (NEGATIVE); PROTEIN,URINE Negative (NEGATIVE); URINE, BLOOD Negative (NEGATIVE)
[2022-04-24] MEDS: ALDACTONE PO SCH ×2 (17:51→21:24)
[2022-04-24] MEDS: DECADRON IM SCH (17:51)
[2022-04-24] MEDS: DUONEB NEB SCH (19:45)
[2022-04-24 20:04] VITALS: BMI 25.9
[2022-04-24] MEDS ORDERED: LASIX IVP SCH (21:00)
[2022-04-24] MEDS ORDERED: ULTRAM PO PRN (21:17)
[2022-04-24] MEDS: CARDIZEM PO SCH (22:05)
[2022-04-24] MEDS: GLUCOPHAGE PO SCH ×2 (22:05→22:12)
[2022-04-24] MEDS: LOPRESSOR PO SCH (22:06)
[2022-04-24] MEDS: NORCO 5-325 PO PRN (22:19)
[2022-04-25] MEDS: DUONEB NEB SCH ×3 (04:40→20:40)
[2022-04-25] MEDS: LASIX IVP SCH (05:30)
[2022-04-25 05:38] LABS: HEMATOCRIT 40.6 % (42.0-52.0); IMMATURE GRANULOCYTE % (AUTO) 0.3 % (0.0-5.0); LYMPHOCYTES # (AUTO) 0.9 K/uL (0.60-3.4); LYMPHOCYTES % (AUTO) 25.4 (10.0-50.0); MEAN CORPUSCULAR HEMOGLOBIN 29.8 pg (27.0-31.0); MEAN CORPUSCULAR VOLUME 93.1 fl (80.0-94.0); MONOCYTES # (AUTO) 0.1 K/uL (0.4-2.0); MONOCYTES % (AUTO) 1.9 (0-10); NEUTROPHILS # (AUTO) 2.7 K/ul (2.0-6.9); NEUTROPHILS % (AUTO) 72.4 % (42.2-75.2); PLATELET COUNT 165 10^3/uL (140-440); RDW COEFFICIENT OF VARIATION 15.1 % (11.6-14.8); RED BLOOD COUNT 4.36 10^6/ul (4.70-6.10); WHITE BLOOD COUNT 3.66 K/ul (4.2-10.2)
[2022-04-25 05:55] LABS: ALANINE AMINOTRANSFERASE 16.1 U/L (0-50); ALBUMIN 4.34 g/dL (3.5-5.0); ALKALINE PHOSPHATASE 98.6 U/L (56-119); ASPARTATE AMINO TRANSFERASE 23.6 U/L (17-59); BILIRUBIN,TOTAL 0.61 mg/dL (0.2-1.3); BLOOD UREA NITROGEN 14.9 mg/dL (9-20); CALCIUM 9.46 mg/dL (8.4-10.2); CARBON DIOXIDE 27.7 mmol/L (22-30.0); CHLORIDE 101.8 mmol/L (98-107); CREATININE 1.28 mg/dL (0.60-1.10); GLUCOSE 193.8 mg/dL (74-106); POTASSIUM 3.73 mmol/L (3.5-5.1); SODIUM 138.7 mmol/L (134.5-145); TOTAL PROTEIN 7.71 g/dL (6.3-8.2)
[2022-04-25] MEDS ORDERED: LASIX TAB PO SCH (06:30)
--- NOTE | 2022-04-25 07:53 | CT ---
EXAM: CT Chest with and without contrast. HISTORY: Shortness of breath. COMPARISON: Radiograph [address] 12/05/2021. TECHNIQUE: Multiple axial images of the chest were obtained prior to and following intravenous admin istration of 100 mL Visipaque 320, low osmolar. Images were reformatted in the sagittal and coronal planes. FINDINGS: No mediastinal, hilar, or axillary lymphadenopathy detected. Heart is enlarged. Right heart chambers enlarged greater than the left heart chambers. The main, le ft and right pulmonary arteries are enlarged. There is no pericardial effusion. Coronary artery and aortic calcifications present. There is no aortic dissection. No pulmonary arterial filling defect is seen. Small right pleural effusion noted with mild dependent consolidation in the posterior basal right low er lobe. Minimal subsegmental atelectasis left lower lobe. Calcified granulomatous changes present. Lungs otherwise clear. There is no left pleural effusion. No pneumothorax detected. Refer to same day abdominal CT report for details of upper abdominal findings. Degenerative changes in the shoulders and spine. IMPRESSION: 1. Small right pleural effusion with dependent right lower lobe atelectasis. 2. Cardiomegaly with right heart predominance. Possible underlying pulmonary arterial hypertension. All CT scans are performed using dose optimization techniques as appropriate to the performed exam an d include at least one of the following: Automated exposure control, adjustment of the mA and/or kV according t o size, and the use of iterative reconstruction technique.
--- NOTE | 2022-04-25 07:59 | CT ---
EXAM: CT of the abdomen and pelvis without and with contrast. TECHNIQUE: CT of the abdomen and pelvis was performed before and after intravenous contrast administ ration. Multiplanar reformats were performed. HISTORY: Abdominal distension. COMPARISON: CT abdomen pelvis 09/21/2017. FINDINGS: Imaged lower thorax: Small right pleural effusion. Band-like opacities at the lung bases bilaterally. Cardiomegaly. Coronary artery calcifications. Liver: Multiple cysts in the liver and not significantly changed. Gallbladder/Bile Ducts: No biliary dilation. Gallbladder is unremarkable. Spleen: Unremarkable. Pancreas: Unremarkable. Adrenals: Unremarkable. Kidneys/Ureters: Bilateral renal cysts. Moderate cortical atrophy. No hydronephrosis. Bowel/mesentery/peritoneum: Small hiatal hernia. No bowel obstruction. Normal appendix. Colonic dive rticulosis without acute diverticulitis. Small volume ascites. No free air. Retroperitoneum/vessels: No aortic aneurysm. Multifocal atherosclerotic plaques. Pelvis: Partially obscured by streak artifact. Bladder wall appears mildly thickened. Bones/body wall: Right hip total arthroplasty hardware appears intact. No fracture. Severe degenera tive change of the left hip. Advanced multilevel spondylosis and mild levoconvex lumbar scoliosis. IMPRESSION: Small-volume ascites and small right pleural effusion. Mildly thickened urinary bladder wall could be due to chronic outlet obstruction or cystitis. Cardiomegaly. Atherosclerosis. Small hiatal hernia. Colonic diverticulosis without acute diverticulitis. All CT scans are performed using dose optimization techniques as appropriate to the performed exam an d include at least one of the following: Automated exposure control, adjustment of the mA and/or kV according t o size, and the use of iterative reconstruction technique.
[2022-04-25] MEDS: ROCEPHIN 1 GM/50 ML D5W 1 GM/50 ML BAG IV SCH (08:49)
[2022-04-25] MEDS: DECADRON IM SCH (08:49)
[2022-04-25] MEDS: ALDACTONE PO SCH ×2 (08:50→21:03)
[2022-04-25] MEDS: ENTRESTO 24 MG-26 MG TABLET PO SCH ×2 (08:50→21:02)
[2022-04-25] MEDS: CARDIZEM PO SCH ×2 (08:50→21:02)
[2022-04-25] MEDS: ZITHROMAX PO SCH (08:50)
[2022-04-25] MEDS: LOPRESSOR PO SCH ×2 (08:51→21:02)
[2022-04-25] MEDS: ELIQUIS PO SCH ×2 (08:51→21:02)
[2022-04-25] MEDS: ZYLOPRIM PO SCH ×2 (08:51→21:04)
[2022-04-25] MEDS ORDERED: ROCEPHIN 2 GM/50 ML D5W 2 GM/50 ML BAG IV SCH (09:00)
[2022-04-25] MEDS ORDERED: ALDACTONE PO SCH (09:00)
[2022-04-25] MEDS: HUMULIN R SUBCUT PRN ×2 (17:41→21:04)
[2022-04-25] MEDS: NORCO 5-325 PO PRN (21:10)
[2022-04-26] MEDS: DUONEB NEB SCH ×3 (04:50→20:40)
[2022-04-26] MEDS: LASIX IVP SCH (05:41)
[2022-04-26 06:03] LABS: HEMATOCRIT 37.9 % (42.0-52.0); HEMOGLOBIN 12.3 g/dl (14.0-18.0); IMMATURE GRANULOCYTE % (AUTO) 0.3 % (0.0-5.0); LYMPHOCYTES % (AUTO) 10.5 (10.0-50.0); MEAN CORPUSCULAR HEMOGLOBIN 29.9 pg (27.0-31.0); MEAN CORPUSCULAR HGB CONC 32.5 (31.8-35.4); MEAN CORPUSCULAR VOLUME 92.2 fl (80.0-94.0); MONOCYTES # (AUTO) 0.7 K/uL (0.4-2.0); MONOCYTES % (AUTO) 7.3 (0-10); NEUTROPHILS # (AUTO) 8.1 K/ul (2.0-6.9); NEUTROPHILS % (AUTO) 81.9 % (42.2-75.2); PLATELET COUNT 183 10^3/uL (140-440); RDW COEFFICIENT OF VARIATION 15.5 % (11.6-14.8); RED BLOOD COUNT 4.11 10^6/ul (4.70-6.10); WHITE BLOOD COUNT 9.85 K/ul (4.2-10.2)
[2022-04-26 06:19] LABS: ALANINE AMINOTRANSFERASE 13.6 U/L (0-50); ALBUMIN 4.16 g/dL (3.5-5.0); ALKALINE PHOSPHATASE 85.1 U/L (56-119); ASPARTATE AMINO TRANSFERASE 21.7 U/L (17-59); BILIRUBIN,TOTAL 0.53 mg/dL (0.2-1.3); BLOOD UREA NITROGEN 24.7 mg/dL (9-20); CALCIUM 9.71 mg/dL (8.4-10.2); CARBON DIOXIDE 26.9 mmol/L (22-30.0); CHLORIDE 102.5 mmol/L (98-107); CREATININE 1.32 mg/dL (0.60-1.10); GLUCOSE 170.7 mg/dL (74-106); POTASSIUM 3.76 mmol/L (3.5-5.1); SODIUM 138.4 mmol/L (134.5-145); TOTAL PROTEIN 7.22 g/dL (6.3-8.2)
[2022-04-26] MEDS: HUMULIN R SUBCUT PRN ×4 (06:39→20:54)
[2022-04-26] MEDS ORDERED: TORADOL IM ONE ×2 (08:26→09:00)
[2022-04-26] MEDS: ENTRESTO 24 MG-26 MG TABLET PO SCH ×2 (09:12→20:50)
[2022-04-26] MEDS: DECADRON IM SCH (09:12)
[2022-04-26] MEDS: ROCEPHIN 1 GM/50 ML D5W 1 GM/50 ML BAG IV SCH (09:12)
[2022-04-26] MEDS: LOPRESSOR PO SCH ×2 (09:14→20:51)
[2022-04-26] MEDS: ZYLOPRIM PO SCH (09:14)
[2022-04-26] MEDS: ZITHROMAX PO SCH (09:14)
[2022-04-26] MEDS: ELIQUIS PO SCH ×2 (09:14→20:53)
[2022-04-26] MEDS: ALDACTONE PO SCH ×2 (09:15→20:50)
[2022-04-26] MEDS: CARDIZEM PO SCH ×2 (09:15→20:51)
--- NOTE | 2022-04-26 10:15 | PCM.PROG ---
Attending Provider: ATTENDING PROVIDER: Dr. DANILO ROBERTSON MD This patient is seen with Wendie Morrison, Nurse Practitioner. DATE OF SERVICE: 04/26/22 SUBJECTIVE: This 82 year old /WHITE M was hospitalized 04/24/22. The patient is sitting comfortably in the chair. The abdomen is not as distended today. Heart rate staying around 100. Renal function stable. He reports feeling less short of breath. There is some edema in legs. The patient is to keep feet up. REVIEW OF SYSTEMS: CONSTITUTIONAL: Fatigue. No night sweats. No malaise, lethargy. No fever or chills. HEENT: Eyes: No visual changes. No eye pain. No eye discharge. ENT: No runny nose. No epistaxis. No sinus pain. No odynophagia. No congestion. RESPIRATORY: Shortness of breath. No cough, no congestion. No hemoptysis. CARDIOVASCULAR: No angina symptoms. No CHF symptoms. No atypical chest pain for CAD. No palpitations. No orthopnea.. GASTROINTESTINAL: No abdominal pain. No nausea or vomiting. No diarrhea or constipation. No hematemesis. No hematochezia. GENITOURINARY: No urgency. No frequency. No dysuria. No hematuria. No obstructive symptoms. No discharge. No pain. No significant abnormal bleeding. MUSCULOSKELETAL: No musculoskeletal pain; no joint swelling. Leg edema. NEUROLOGICAL: Awake, alert, oriented to time, place and person. No headache. No neck pain. No syncope. No seizures. No dizziness. PSYCHIATRIC: Not anxious. No depression. No suicidal thoughts. No homicidal thoughts. SKIN: No rash. No lesions. No wounds. ENDOCRINE: No unexplained weight loss. No weight gain. HEMATOLOGIC/LYMPHATIC: No anemia. No purpura. No petechiae. No prolonged or excessive bleeding. No palpable lymph nodes. PHYSICAL EXAMINATION: GENERAL: The patient is awake, alert and oriented, lying/sitting in bed in no distress. VITAL SIGNS: Temperature 96.5 F, Pulse 103, Respiratory Rate 20, BP 142/77, Pulse Ox 96% HEENT: Head normocephalic, atraumatic. Eyes: Extraocular muscles are intact. Pupils are equal, round and reactive to light and accommodation. Ears: No lesions. Nose appeared normal. Throat: No exudate or erythema. NECK: Supple. No JVD, no carotid bruit. No lymphadenopathy or thyromegaly. LUNGS: Diminished breath sounds. Clear to auscultation. Percussion note normal. Chest symmetrical. HEART: Irregular heart rate. S3 noted. No murmurs. No cyanosis or clubbing. No ascites. Pulses: Dorsalis pedis and posterior tibial pulses +1 to +2 both sides. ABDOMEN: Soft. Non-tender. Bowel sounds active. No CVA tenderness. No mass felt. EXTREMITIES: No edema. Full range of motion of all extremities, equal. NEUROLOGIC: No focal deficit. Cranial nerves II through XII are grossly intact. No headache. No double vision. SKIN: Not dry. Intact. Turgor-normal. LYMPHATIC: No palpable lymph nodes/no lymphedema. MUSCULOSKELETAL: Normal joints with no swelling. Muscle tone is normal. LAB REVIEW: 04/26/22 05:48 04/26/22 05:48 04/26/22 05:48: Sodium 138.4, Potassium 3.76, Chloride 102.5, Carbon Dioxide 26.9, Anion Gap 12.76, BUN 24.7 H, Creatinine 1.32 H, Estimated GFR (MDRD) 52.00, BUN/Creatinine Ratio 18.71, Glucose 170.7 H, Calcium 9.71, Total Bilirubin 0.53, AST 21.7, ALT 13.6, Alkaline Phosphatase 85.1, Total Protein 7.22, Albumin 4.16, Globulin 3.06, Albumin/Globulin Ratio 1.35 04/26/22 05:48: WBC 9.85 D, RBC 4.11 L, Hgb 12.3 L, Hct 37.9 L, MCV 92.2, MCH 29.9, MCHC 32.5, RDW Coeff of Edita 15.5 H, Plt Count 183, Immature Gran % (Auto) 0.3, Neut % (Auto) 81.9 H, Lymph % (Auto) 10.5, Cascade % (Auto) 7.3, Eos % (Auto) 0.0, Baso % (Auto) 0.0, Neut # (Auto) 8.1 H, Lymph # (Auto) 1.0, Cascade # (Auto) 0.7, Eos # (Auto) 0.0, Baso # (Auto) 0.0, Immature Gran # (Auto) 0.0 ASSESSMENT: Please see below. 1. Acute CHF 2. Atrial fibrillation 3. Gouty arthritis. 4. Chronic kidney disease. 5. Leg edema. 6. Hypertension. PLAN: 1. Increase Cardizem 90 mg b.i.d 2. Start Lasix p.o. tomorrow. 3. The patient is down 5 lbs. 4. Keep legs elevated. 5. DC IV Lasix. 6. Uric acid level. 7. Toradol 15 mg one time dose. 8. Decrease Allopurinol 200 daily once a day. Plan and coordination of the patient's care discussed in the presence of Working Manager and nurse. CONDITION: Stable SCRIBED BY: ANDRESSA THORPE Salvage Laborer scribed while in presence of service performed by Ashly Robertson/Wendie Morrison APRN on 04/26/22 ([id number])
--- NOTE | 2022-04-26 15:19 | PN ---
DATE OF SERVICE: 04/24/22 SUBJECTIVE: This patient was hospitalized today with increasing shortness of breath, cough. The patient has questionable pneumonia by chest x-ray, not many symptoms. Septic markers are negative. He may have worsening of congestive heart failure. The patient's problem is noncompliant of diet, medications; besides that his , the one who administered the medications and holds them the way she wants to depending upon how he feels. REVIEW OF SYSTEMS: CONSTITUTIONAL: No night sweats. No fatigue, malaise, lethargy. No fever or chills. HEENT: Eyes: No visual changes. No eye pain. No eye discharge. ENT: No runny nose. No epistaxis. No sinus pain. No sore throat. No odynophagia. No congestion. RESPIRATORY: Decreased breath sounds to percussion at the bases. No cough, no congestion. No hemoptysis. No shortness of breath. CARDIOVASCULAR: S1, S2 questionable S3. No angina symptoms. No CHF symptoms. No atypical chest pain for CAD. No palpitations. No PND. No orthopnea. GASTROINTESTINAL: No abdominal pain. No nausea or vomiting. No diarrhea or constipation. No hematemesis. No hematochezia. GENITOURINARY: No urgency. No frequency. No dysuria. No hematuria. No obstructive symptoms. No discharge. No pain. No significant abnormal bleeding. MUSCULOSKELETAL: No musculoskeletal pain; no joint swelling. NEUROLOGICAL: No headache. No neck pain. No syncope. No seizures. No dizziness. PSYCHIATRIC: Not anxious. No depression. No suicidal thoughts. No homicidal thoughts. SKIN: No rash. No lesions. No wounds. ENDOCRINE: No unexplained weight loss. No weight gain. HEMATOLOGIC/LYMPHATIC: No anemia. No purpura. No petechiae. No prolonged or excessive bleeding. No palpable lymph nodes. PHYSICAL EXAMINATION: GENERAL: The patient is in no distress. HEENT: Head normocephalic, atraumatic. Eyes: Extraocular muscles are intact. Pupils are equal, round and reactive to light and accommodation. Ears: No lesions. Nose appeared normal. Throat: No exudate or erythema. NECK: Supple. No JVD, no carotid bruit. No lymphadenopathy or thyromegaly. LUNGS: Clear to auscultation. Percussion note normal. Chest symmetrical. HEART: S1, S2, no S3. No murmurs. No cyanosis or clubbing. No ascites. Pulses: Dorsalis pedis and posterior tibial pulses +1 to +2 bilaterally. ABDOMEN: Soft. Nontender. Bowel sounds active. No CVA tenderness. No mass felt. EXTREMITIES: 1-2+ pitting edema. Full range of motion of all extremities, equal. NEUROLOGIC: No focal deficit. Cranial nerves II through XII are grossly intact. No headache. No double vision. SKIN: Not dry. Intact. Turgor - normal. LYMPHATIC: No palpable lymph nodes/no lymphedema. MUSCULOSKELETAL: Normal joints with no swelling. Muscle tone is normal. ASSESSMENT: Worsening CHF, possibly pneumonitis Chronic lung disease Echocardiogram finding consistent with pulmonary hypertension. PLAN: 1. Admit the patient 2. IV Lasix 3. Antibiotics 4. Steroids Patient is DNR. TIME SPENT: More than 30 minutes. Plan and coordination of the patient's care discussed in the presence of nurse. CRISTEL
--- NOTE | 2022-04-26 16:03 | PN ---
DATE OF SERVICE: 04/25/22 SUBJECTIVE: The patient was hospitalized with pneumonitis and CHF. The patient was hospitalized recently for congestive heart failure and patient's condition improved and was discharged home. He was seen in the office a few days ago and was doing better but required control of his blood pressure so medications were changed. The patient has paroxysmal septal motion on echo with enlarged LV cavity with evidence of pulmonary hypertension. Contractility is acceptable. Paroxysmal septal motion is lower but is approximately 45%. In any case, the patient says that he is feeling better. REVIEW OF SYSTEMS: CONSTITUTIONAL: No PND, No orthopnea. No night sweats. No fatigue, malaise, lethargy. No fever or chills. HEENT: Eyes: No visual changes. No eye pain. No eye discharge. ENT: No runny nose. No epistaxis. No sinus pain. No sore throat. No odynophagia. No congestion. RESPIRATORY: No cough, no congestion. No hemoptysis. No shortness of breath. CARDIOVASCULAR: SOB on exertion. No angina symptoms. No CHF symptoms. No atypical chest pain for CAD. No palpitations. No PND. No orthopnea. GASTROINTESTINAL: No abdominal pain. No nausea or vomiting. No diarrhea or constipation. No hematemesis. No hematochezia. GENITOURINARY: No urgency. No frequency. No dysuria. No hematuria. No obstructive symptoms. No discharge. No pain. No significant abnormal bleeding. MUSCULOSKELETAL: No musculoskeletal pain; no joint swelling. NEUROLOGICAL: No headache. No neck pain. No syncope. No seizures. No dizziness. PSYCHIATRIC: Not anxious. No depression. No suicidal thoughts. No homicidal thoughts. SKIN: No rash. No lesions. No wounds. ENDOCRINE: No unexplained weight loss. No weight gain. HEMATOLOGIC/LYMPHATIC: No anemia. No purpura. No petechiae. No prolonged or excessive bleeding. No palpable lymph nodes. PHYSICAL EXAMINATION: GENERAL: The patient is in no distress. VITAL SIGNS: Temperature 97.3, pulse 99, respiratory rate 18, blood pressure 150/86, pulse ox 96% on room air. HEENT: Head normocephalic, atraumatic. Eyes: Extraocular muscles are intact. Pupils are equal, round and reactive to light and accommodation. Ears: No lesions. Nose appeared normal. Throat: No exudate or erythema. NECK: Supple. No JVD, no carotid bruit. No lymphadenopathy or thyromegaly. LUNGS: Decreased breath sounds with few crepitations, dry. Percussion note normal. Chest symmetrical. HEART: S1, S2, no S3. No murmurs. No cyanosis or clubbing. No ascites. Pulses: Dorsalis pedis and posterior tibial pulses +1 to +2 bilaterally. ABDOMEN: Soft. Nontender. No ascites. Bowel sounds active. No CVA tenderness. No mass felt. EXTREMITIES: 1+ pitting edema. Full range of motion of all extremities, equal. NEUROLOGIC: No focal deficit. Cranial nerves II through XII are grossly intact. No headache. No double vision. SKIN: Not dry. Intact. Turgor - normal. LYMPHATIC: No palpable lymph nodes/no lymphedema. MUSCULOSKELETAL: Normal joints with no swelling. Muscle tone is normal. LABS: Hemoglobin 13, hematocrit 40, WBC 8,600, normal differential, creatinine 1.2, BUN 14, potassium 3.7. ABG done yesterday on room air PO2 74, PCO2 36, PH 7.49 with 96% saturation. Markers were negative. Pro BNP was 6,350. ASSESSMENT: 1. Acute pneumonitis 2. CHF with right sided failure as well as left sided failure PLAN: 1. Get kidney functions which has improved 2 Continue Lasix 3. As before, continue the rest of the medications Patient is advised to take his medications on regular basis. CHF education carried out. Patient's cardiac markers are negative. Telemetry does not find any arrhythmias. TIME SPENT: More than 30 minutes. 04/25/22: Extensive Plan and coordination of the patient's care discussed in the presence of nurse. CRISTEL
[2022-04-26] MEDS: NORCO 5-325 PO PRN (21:34)
[2022-04-27] MEDS: DUONEB NEB SCH ×3 (04:35→19:48)
[2022-04-27 05:17] LABS: HEMATOCRIT 39.6 % (42.0-52.0); HEMOGLOBIN 12.7 g/dl (14.0-18.0); IMMATURE GRANULOCYTE % (AUTO) 0.4 % (0.0-5.0); LYMPHOCYTES # (AUTO) 0.7 K/uL (0.60-3.4); LYMPHOCYTES % (AUTO) 8.8 (10.0-50.0); MEAN CORPUSCULAR HGB CONC 32.1 (31.8-35.4); MEAN CORPUSCULAR VOLUME 93.4 fl (80.0-94.0); MONOCYTES # (AUTO) 0.5 K/uL (0.4-2.0); MONOCYTES % (AUTO) 5.8 (0-10); NEUTROPHILS # (AUTO) 7.1 K/ul (2.0-6.9); PLATELET COUNT 178 10^3/uL (140-440); RDW COEFFICIENT OF VARIATION 15.3 % (11.6-14.8); RED BLOOD COUNT 4.24 10^6/ul (4.70-6.10); WHITE BLOOD COUNT 8.39 K/ul (4.2-10.2)
[2022-04-27 05:35] LABS: ALANINE AMINOTRANSFERASE 13.9 U/L (0-50); ALBUMIN 4.19 g/dL (3.5-5.0); BILIRUBIN,TOTAL 0.56 mg/dL (0.2-1.3); BLOOD UREA NITROGEN 29.4 mg/dL (9-20); CALCIUM 9.92 mg/dL (8.4-10.2); CARBON DIOXIDE 27.3 mmol/L (22-30.0); CHLORIDE 103.3 mmol/L (98-107); CREATININE 1.35 mg/dL (0.60-1.10); POTASSIUM 4.04 mmol/L (3.5-5.1); SODIUM 137.4 mmol/L (134.5-145); TOTAL PROTEIN 7.21 g/dL (6.3-8.2)
[2022-04-27] MEDS: LASIX TAB PO SCH (06:33)
[2022-04-27] MEDS: HUMULIN R SUBCUT PRN ×4 (06:46→21:36)
[2022-04-27] MEDS: ROCEPHIN 1 GM/50 ML D5W 1 GM/50 ML BAG IV SCH (08:48)
[2022-04-27] MEDS: CARDIZEM PO SCH ×2 (08:49→21:31)
[2022-04-27] MEDS: ZYLOPRIM PO SCH (08:49)
[2022-04-27] MEDS: LOPRESSOR PO SCH ×2 (08:49→21:31)
[2022-04-27] MEDS: ENTRESTO 24 MG-26 MG TABLET PO SCH ×2 (08:50→21:30)
[2022-04-27] MEDS: DECADRON IM SCH (08:50)
[2022-04-27] MEDS: ZITHROMAX PO SCH (08:51)
[2022-04-27] MEDS: ELIQUIS PO SCH ×2 (08:51→21:35)
[2022-04-27] MEDS: ALDACTONE PO SCH ×2 (08:51→21:30)
[2022-04-27] MEDS: NORCO 5-325 PO PRN (21:35)
[2022-04-28] MEDS: DUONEB NEB SCH ×3 (05:09→19:20)
[2022-04-28 05:27] LABS: HEMATOCRIT 37.1 % (42.0-52.0); HEMOGLOBIN 11.8 g/dl (14.0-18.0); IMMATURE GRANULOCYTE % (AUTO) 0.4 % (0.0-5.0); LYMPHOCYTES # (AUTO) 0.6 K/uL (0.60-3.4); LYMPHOCYTES % (AUTO) 7.9 (10.0-50.0); MEAN CORPUSCULAR HEMOGLOBIN 29.5 pg (27.0-31.0); MEAN CORPUSCULAR HGB CONC 31.8 (31.8-35.4); MEAN CORPUSCULAR VOLUME 92.8 fl (80.0-94.0); MONOCYTES # (AUTO) 0.6 K/uL (0.4-2.0); MONOCYTES % (AUTO) 7.5 (0-10); NEUTROPHILS # (AUTO) 6.7 K/ul (2.0-6.9); NEUTROPHILS % (AUTO) 84.2 % (42.2-75.2); PLATELET COUNT 187 10^3/uL (140-440); RDW COEFFICIENT OF VARIATION 15.3 % (11.6-14.8); WHITE BLOOD COUNT 7.89 K/ul (4.2-10.2)
[2022-04-28 05:39] LABS: ALANINE AMINOTRANSFERASE 14.7 U/L (0-50); ALBUMIN 3.89 g/dL (3.5-5.0); ALKALINE PHOSPHATASE 76.8 U/L (56-119); ASPARTATE AMINO TRANSFERASE 21.6 U/L (17-59); BILIRUBIN,TOTAL 0.48 mg/dL (0.2-1.3); BLOOD UREA NITROGEN 34.6 mg/dL (9-20); CALCIUM 9.58 mg/dL (8.4-10.2); CARBON DIOXIDE 25.9 mmol/L (22-30.0); CHLORIDE 104.2 mmol/L (98-107); CREATININE 1.4 mg/dL (0.60-1.10); GLUCOSE 151.9 mg/dL (74-106); POTASSIUM 4.29 mmol/L (3.5-5.1); SODIUM 136.2 mmol/L (134.5-145); TOTAL PROTEIN 6.64 g/dL (6.3-8.2)
[2022-04-28] MEDS: LASIX TAB PO SCH (05:40)
[2022-04-28] MEDS: HUMULIN R SUBCUT PRN ×4 (06:11→20:46)
[2022-04-28] MEDS: ENTRESTO 24 MG-26 MG TABLET PO SCH ×2 (09:39→20:34)
[2022-04-28] MEDS: LOPRESSOR PO SCH ×2 (09:39→20:34)
[2022-04-28] MEDS: ELIQUIS PO SCH ×2 (09:40→20:32)
[2022-04-28] MEDS: ALDACTONE PO SCH ×2 (09:41→20:34)
[2022-04-28] MEDS: GLUCOPHAGE PO SCH ×2 (09:41→20:34)
[2022-04-28] MEDS: ZYLOPRIM PO SCH (09:41)
[2022-04-28] MEDS: CARDIZEM PO SCH ×2 (09:42→20:35)
[2022-04-28] MEDS: DECADRON IM SCH (09:43)
[2022-04-28] MEDS: ROCEPHIN 1 GM/50 ML D5W 1 GM/50 ML BAG IV SCH (09:45)
[2022-04-28] MEDS: NORCO 5-325 PO PRN (20:55)
[2022-04-29] MEDS: DUONEB NEB SCH ×3 (04:48→20:48)
[2022-04-29 05:29] LABS: HEMATOCRIT 36.7 % (42.0-52.0); HEMOGLOBIN 11.9 g/dl (14.0-18.0); IMMATURE GRANULOCYTE % (AUTO) 0.5 % (0.0-5.0); LYMPHOCYTES # (AUTO) 0.6 K/uL (0.60-3.4); LYMPHOCYTES % (AUTO) 9.4 (10.0-50.0); MEAN CORPUSCULAR HEMOGLOBIN 30.2 pg (27.0-31.0); MEAN CORPUSCULAR HGB CONC 32.4 (31.8-35.4); MEAN CORPUSCULAR VOLUME 93.1 fl (80.0-94.0); MONOCYTES # (AUTO) 0.5 K/uL (0.4-2.0); MONOCYTES % (AUTO) 7.6 (0-10); NEUTROPHILS # (AUTO) 5.5 K/ul (2.0-6.9); NEUTROPHILS % (AUTO) 82.5 % (42.2-75.2); PLATELET COUNT 180 10^3/uL (140-440); RDW COEFFICIENT OF VARIATION 15.1 % (11.6-14.8); RED BLOOD COUNT 3.94 10^6/ul (4.70-6.10); WHITE BLOOD COUNT 6.61 K/ul (4.2-10.2)
[2022-04-29 05:46] LABS: ALANINE AMINOTRANSFERASE 20.3 U/L (0-50); ALBUMIN 3.94 g/dL (3.5-5.0); ALKALINE PHOSPHATASE 62.9 U/L (56-119); ASPARTATE AMINO TRANSFERASE 27.7 U/L (17-59); BILIRUBIN,TOTAL 0.62 mg/dL (0.2-1.3); BLOOD UREA NITROGEN 40.4 mg/dL (9-20); CALCIUM 9.56 mg/dL (8.4-10.2); CARBON DIOXIDE 23.4 mmol/L (22-30.0); CHLORIDE 104.9 mmol/L (98-107); CREATININE 1.52 mg/dL (0.60-1.10); GLUCOSE 179.9 mg/dL (74-106); POTASSIUM 4.61 mmol/L (3.5-5.1); TOTAL PROTEIN 6.89 g/dL (6.3-8.2)
[2022-04-29] MEDS: LASIX TAB PO SCH (06:09)
--- NOTE | 2022-04-29 09:31 | PN ---
DATE OF SERVICE: 04/26/22 SUBJECTIVE: This patient was seen and examined with the nurse practitioner. His condition has improved and he has lost 5 lbs. There are some crackles in the lower bases which could be chronic. CHF and pneumonitis seems to be resolving. REVIEW OF SYSTEMS: CONSTITUTIONAL: No night sweats. No fatigue, malaise, lethargy. No fever or chills. HEENT: Eyes: No visual changes. No eye pain. No eye discharge. ENT: No runny nose. No epistaxis. No sinus pain. No sore throat. No odynophagia. No congestion. RESPIRATORY: No cough, no congestion. No hemoptysis. No shortness of breath. CARDIOVASCULAR: No angina symptoms. No CHF symptoms. No atypical chest pain for CAD. No palpitations. No PND. No orthopnea. GASTROINTESTINAL: No abdominal pain. No nausea or vomiting. No diarrhea or constipation. No hematemesis. No hematochezia. GENITOURINARY: No urgency. No frequency. No dysuria. No hematuria. No obstructive symptoms. No discharge. No pain. No significant abnormal bleeding. MUSCULOSKELETAL: No musculoskeletal pain; no joint swelling. NEUROLOGICAL: No headache. No neck pain. No syncope. No seizures. No dizziness. PSYCHIATRIC: Not anxious. No depression. No suicidal thoughts. No homicidal thoughts. SKIN: No rash. No lesions. No wounds. ENDOCRINE: No unexplained weight loss. No weight gain. HEMATOLOGIC/LYMPHATIC: No anemia. No purpura. No petechiae. No prolonged or excessive bleeding. No palpable lymph nodes. PHYSICAL EXAMINATION: GENERAL: The patient is , lying/sitting in bed in no distress. VITAL SIGNS: HEENT: Head normocephalic, atraumatic. Eyes: Extraocular muscles are intact. Pupils are equal, round and reactive to light and accommodation. Ears: No lesions. Nose appeared normal. Throat: No exudate or erythema. NECK: Supple. No JVD, no carotid bruit. No lymphadenopathy or thyromegaly. LUNGS: Crackles in the lower bases which could be chronic. Percussion note normal. Chest symmetrical. HEART: S1, S2, no S3. No murmurs. No cyanosis or clubbing. No ascites. Pulses: Dorsalis pedis and posterior tibial pulses +1 to +2 bilaterally. ABDOMEN: Soft. Nontender. Bowel sounds active. No CVA tenderness. No mass felt. EXTREMITIES: No edema. Full range of motion of all extremities, equal. NEUROLOGIC: No focal deficit. Cranial nerves II through XII are grossly intact. No headache. No double vision. SKIN: Not dry. Intact. Turgor - normal. LYMPHATIC: No palpable lymph nodes/no lymphedema. MUSCULOSKELETAL: Normal joints with no swelling. Muscle tone is normal. ASSESSMENT: 1. CHF 2. Pneumonitis Discussed with patient again about CHF. Current medications and the roll of different medications discussed. TIME SPENT: More than 30 minutes. Plan and coordination of the patient's care discussed in the presence of nurse. CRISTEL
[2022-04-29] MEDS: CARDIZEM PO SCH ×2 (09:33→20:45)
[2022-04-29] MEDS: LOPRESSOR PO SCH ×2 (09:33→20:49)
[2022-04-29] MEDS: ENTRESTO 24 MG-26 MG TABLET PO SCH ×2 (09:34→20:49)
[2022-04-29] MEDS: OMNICEF PO SCH ×2 (09:34→20:48)
[2022-04-29] MEDS: DECADRON IM SCH (09:34)
[2022-04-29] MEDS: ZYLOPRIM PO SCH (09:34)
[2022-04-29] MEDS: GLUCOPHAGE PO SCH ×2 (09:34→20:45)
[2022-04-29] MEDS: ELIQUIS PO SCH ×2 (09:34→20:49)
[2022-04-29] MEDS: ALDACTONE PO SCH ×2 (09:34→20:48)
--- NOTE | 2022-04-29 09:39 | PN ---
DATE OF SERVICE: 04/27/22 SUBJECTIVE: This patient was hospitalized with pneumonia and CHF. The patient's condition has improved. He is feeling better and breathing better. REVIEW OF SYSTEMS: CONSTITUTIONAL: No night sweats. No fatigue, malaise, lethargy. No fever or chills. HEENT: Eyes: No visual changes. No eye pain. No eye discharge. ENT: No runny nose. No epistaxis. No sinus pain. No sore throat. No odynophagia. No congestion. RESPIRATORY: No cough, no congestion. No hemoptysis. No shortness of breath. CARDIOVASCULAR: No angina symptoms. No CHF symptoms. No atypical chest pain for CAD. No palpitations. No PND. No orthopnea. GASTROINTESTINAL: Appetite has improved. No abdominal pain. No nausea or vomiting. No diarrhea or constipation. No hematemesis. No hematochezia. GENITOURINARY: No urgency. No frequency. No dysuria. No hematuria. No obstructive symptoms. No discharge. No pain. No significant abnormal bleeding. MUSCULOSKELETAL: No musculoskeletal pain; no joint swelling. NEUROLOGICAL: No headache. No neck pain. No syncope. No seizures. No dizziness. PSYCHIATRIC: Not anxious. No depression. No suicidal thoughts. No homicidal thoughts. SKIN: No rash. No lesions. No wounds. ENDOCRINE: No unexplained weight loss. No weight gain. HEMATOLOGIC/LYMPHATIC: No anemia. No purpura. No petechiae. No prolonged or excessive bleeding. No palpable lymph nodes. PHYSICAL EXAMINATION: GENERAL: The patient is siting in bed in no distress. VITAL SIGNS: Temperature 97.3. pulse 64, respiration rate 18, blood pressure 140/60, pulse ox 98% on room air. HEENT: Head normocephalic, atraumatic. Eyes: Extraocular muscles are intact. Pupils are equal, round and reactive to light and accommodation. Ears: No lesions. Nose appeared normal. Throat: No exudate or erythema. NECK: Supple. No JVD, no carotid bruit. No lymphadenopathy or thyromegaly. LUNGS: Decreased breath sounds. Few crepitations at the bases. Percussion note normal. Chest symmetrical. HEART: S1, S2, no S3. No murmurs. No cyanosis or clubbing. No ascites. Pulses: Dorsalis pedis and posterior tibial pulses +1 to +2 bilaterally. ABDOMEN: Soft. Nontender. Bowel sounds active. No CVA tenderness. No mass felt. EXTREMITIES: Trace edema. Full range of motion of all extremities, equal. NEUROLOGIC: No focal deficit. Cranial nerves II through XII are grossly intact. No headache. No double vision. SKIN: Not dry. Intact. Turgor - normal. LYMPHATIC: No palpable lymph nodes/no lymphedema. MUSCULOSKELETAL: Normal joints with no swelling. Muscle tone is normal. LABS: Hemoglobin 12.7, hematocrit 39, WBC 8,300, normal differential, creatinine 1.3, BUN 29, potassium 4 ASSESSMENT: 1. Pneumonia seems to be resolving 2. CHF seems to be controlled 3. Hypertension, under control 4. Chronic kidney disease PLAN: 1. Continue all medications as prescribed 2. Cut down salt 3. Elevate the legs 4. If he gains more than 2 lbs take an extra dose of diuretic - discussed with patient. Condition: Stable . TIME SPENT: More than 30 minutes. Plan and coordination of the patient's care discussed in the presence of nurse. CRISTEL
[2022-04-29] MEDS: HUMULIN R SUBCUT PRN ×2 (11:29→17:28)
[2022-04-30 05:33] LABS: HEMATOCRIT 36.2 % (42.0-52.0); HEMOGLOBIN 11.8 g/dl (14.0-18.0); MEAN CORPUSCULAR HEMOGLOBIN 30.3 pg (27.0-31.0); MEAN CORPUSCULAR HGB CONC 32.6 (31.8-35.4); MEAN CORPUSCULAR VOLUME 93.1 fl (80.0-94.0); PLATELET COUNT 172 10^3/uL (140-440); RDW COEFFICIENT OF VARIATION 15.2 % (11.6-14.8); RED BLOOD COUNT 3.89 10^6/ul (4.70-6.10); WHITE BLOOD COUNT 5.61 K/ul (4.2-10.2)
[2022-04-30 05:49] LABS: ANISOCYTOSIS NOT PRESENT (NOT PRESENT)
[2022-04-30] MEDS: DUONEB NEB SCH (05:50)
[2022-04-30 05:59] LABS: ALANINE AMINOTRANSFERASE 17.9 U/L (0-50); ALBUMIN 3.5 g/dL (3.5-5.0); ALKALINE PHOSPHATASE 63.4 U/L (56-119); ASPARTATE AMINO TRANSFERASE 17.3 U/L (17-59); BILIRUBIN,TOTAL 0.55 mg/dL (0.2-1.3); BLOOD UREA NITROGEN 44.1 mg/dL (9-20); CALCIUM 9.2 mg/dL (8.4-10.2); CARBON DIOXIDE 24.9 mmol/L (22-30.0); CHLORIDE 104.9 mmol/L (98-107); CREATININE 1.36 mg/dL (0.60-1.10); GLUCOSE 162.5 mg/dL (74-106); POTASSIUM 4.34 mmol/L (3.5-5.1); SODIUM 133.7 mmol/L (134.5-145); TOTAL PROTEIN 6.11 g/dL (6.3-8.2)
[2022-04-30] MEDS: LASIX TAB PO SCH (06:01)
[2022-04-30 06:04] VITALS: BP 132/74; TEMP 97.3
[2022-04-30] MEDS: CARDIZEM PO SCH (09:39)
[2022-04-30] MEDS: GLUCOPHAGE PO SCH (09:40)
[2022-04-30] MEDS: ALDACTONE PO SCH (09:40)
[2022-04-30] MEDS: OMNICEF PO SCH (09:40)
[2022-04-30] MEDS: DECADRON IM SCH (09:40)
[2022-04-30] MEDS: ZYLOPRIM PO SCH (09:40)
[2022-04-30] MEDS: ELIQUIS PO SCH (09:40)
[2022-04-30] MEDS: ENTRESTO 24 MG-26 MG TABLET PO SCH (09:40)
[2022-04-30] MEDS: LOPRESSOR PO SCH (09:41)
--- NOTE | 2022-04-30 10:06 | DS ---
DATE OF SERVICE: 04/30/22 FINAL DIAGNOSIS: 1. Acute CHF- improved. 2. Atrial fibrillation. 3. Small amount of ascites. 4. Diabetes mellitus type 2. 5. COPD. DISCHARGE INSTRUCTIONS: Discharge home. Will see the patient in the office next week. HOSPITAL COURSE: This 82 year old /WHITE M was hospitalized 04/24/22 who presented through the Emergency Department with worsening shortness of breath and leg edema. The patient has underlying atrial fibrillation and was admitted for acute CHF and possible pneumonia. BNP was around 8,000. He was placed on IV Lasix. We increased Aldactone. CT scan showed small amount of ascites. Heart rate staying around 100, consistently in atrial fib. We added Cardizem 90 mg p.o. b.i.d. Initially was placed on IV Rocephin and Zithromax along with Decadron for possible pneumonia. I believe worsening shortness of breath was due to CHF. He has steadily improved and is down 6 lbs on day of discharge. Kidney function is stable. He is ready to go home. We had a discussion regarding medication compliance and its importance. Will continue with medication changes we have made. Will followup with the patient in the office next week. REVIEW OF SYSTEMS: CONSTITUTIONAL: Fatigue. No night sweats. No malaise, lethargy. No fever or chills. HEENT: Eyes: No visual changes. No eye pain. No eye discharge. ENT: No runny nose. No epistaxis. No sinus pain. No odynophagia. No congestion. RESPIRATORY: No cough, no congestion. No hemoptysis. No shortness of breath. CARDIOVASCULAR: No angina symptoms. No CHF symptoms. No atypical chest pain for CAD. No palpitations. No orthopnea.. GASTROINTESTINAL: No abdominal pain. No nausea or vomiting. No diarrhea or constipation. No hematemesis. No hematochezia. GENITOURINARY: No urgency. No frequency. No dysuria. No hematuria. No obstructive symptoms. No discharge. No pain. No significant abnormal bleeding. MUSCULOSKELETAL: No musculoskeletal pain; no joint swelling. NEUROLOGICAL: Awake, alert, oriented to time, place and person. No headache. No neck pain. No syncope. No seizures. No dizziness. PSYCHIATRIC: Not anxious. No depression. No suicidal thoughts. No homicidal thoughts. SKIN: No rash. No lesions. No wounds. ENDOCRINE: No unexplained weight loss. No weight gain. HEMATOLOGIC/LYMPHATIC: No anemia. No purpura. No petechiae. No prolonged or excessive bleeding. No palpable lymph nodes. PHYSICAL EXAMINATION: GENERAL: The patient is awake, alert and oriented, lying/sitting in bed in no distress. VITAL SIGNS: Temperature 97.3 F, Pulse 77, Respiratory Rate 18, BP 132/74, Pulse Ox 99% HEENT: Head normocephalic, atraumatic. Eyes: Extraocular muscles are intact. Pupils are equal, round and reactive to light and accommodation. Ears: No lesions. Nose appeared normal. Throat: No exudate or erythema. NECK: Supple. No JVD, no carotid bruit. No lymphadenopathy or thyromegaly. LUNGS: Clear to auscultation. Percussion note normal. Chest symmetrical. HEART: Irregular with a gallop. S1, S2, no S3. No murmurs. No cyanosis or clubbing. No ascites. Pulses: Dorsalis pedis and posterior tibial pulses +1 to +2 both sides. ABDOMEN: Soft. Non-tender. Bowel sounds active. No CVA tenderness. No mass felt. EXTREMITIES: Trace bilateral pedal edema. Full range of motion of all extremities, equal. NEUROLOGIC: No focal deficit. Cranial nerves II through XII are grossly intact. No headache. No double vision. SKIN: Not dry. Intact. Turgor-normal. LYMPHATIC: No palpable lymph nodes/no lymphedema. MUSCULOSKELETAL: Normal joints with no swelling. Muscle tone is normal. PLAN: 1. Continue Cardizem 90 mg p.o. b.i.d. 2. Will continue with increase in Aldactone 25 mg b.i.d. 3. No need for antibiotics 4. Prednisone 10 mg p.o. daily times 5 days. 5. Decrease Allopurinol. 6. All other medications to remain as they are here in hospital. 7. Medication compliance and its importance discussed with the patient. 8. Discharge home and will see in office next week. Plan and coordination of the patient's care discussed in the presence of Manager Paid and nurse. EDUCATION: Discussed the importance of medication compliance with the patient. Condition at time of discharge: Stable. TIME SPENT: More than 60 minutes. SCRIBED BY: Michelet HALL scribed while in presence of service performed by Dr. Aldana/Wendie Morrison APRN on 04/30/22 ([id number]) . MTDD
--- NOTE | 2022-04-30 10:07 | PCM.PROG ---
Attending Provider: ATTENDING PROVIDER: Dr. DANILO ROBERTSON MD This patient is seen with Wendie Morrison, Nurse Practitioner. DATE OF SERVICE: 04/30/22 SUBJECTIVE: This 82 year old /WHITE M was hospitalized 04/24/22. The patient is resting comfortably. He has been up and about walking around without assistance. Shortness of breath improved. He is down 6 lbs from admission. Discussion about medication compliance and its importance with the patient. The patient states states he takes his medications at home. He is eating well and ready to go home. REVIEW OF SYSTEMS: CONSTITUTIONAL: Fatigue. No night sweats. No malaise, lethargy. No fever or chills. HEENT: Eyes: No visual changes. No eye pain. No eye discharge. ENT: No runny nose. No epistaxis. No sinus pain. No odynophagia. No congestion. RESPIRATORY: No cough, no congestion. No hemoptysis. No shortness of breath. CARDIOVASCULAR: No angina symptoms. No CHF symptoms. No atypical chest pain for CAD. No palpitations. No orthopnea.. GASTROINTESTINAL: No abdominal pain. No nausea or vomiting. No diarrhea or c onstipation. No hematemesis. No hematochezia. GENITOURINARY: No urgency. No frequency. No dysuria. No hematuria. No obstructive symptoms. No discharge. No pain. No significant abnormal bleeding. MUSCULOSKELETAL: No musculoskeletal pain; no joint swelling. NEUROLOGICAL: Awake, alert, oriented to time, place and person. No headache. No neck pain. No syncope. No seizures. No dizziness. PSYCHIATRIC: Not anxious. No depression. No suicidal thoughts. No homicidal thoughts. SKIN: No rash. No lesions. No wounds. ENDOCRINE: No unexplained weight loss. No weight gain. HEMATOLOGIC/LYMPHATIC: No anemia. No purpura. No petechiae. No prolonged or excessive bleeding. No palpable lymph nodes. PHYSICAL EXAMINATION: GENERAL: The patient is awake, alert and oriented, lying/sitting in bed in no distress. VITAL SIGNS: Temperature 97.3 F, Pulse 77, Respiratory Rate 18, BP 132/74, Pulse Ox 99% HEENT: Head normocephalic, atraumatic. Eyes: Extraocular muscles are intact. Pupils are equal, round and reactive to light and accommodation. Ears: No lesions. Nose appeared normal. Throat: No exudate or erythema. NECK: Supple. No JVD, no carotid bruit. No lymphadenopathy or thyromegaly. LUNGS: Clear to auscultation. Percussion note normal. Chest symmetrical. HEART: Irregular with a gallop. S1, S2, no S3. No murmurs. No cyanosis or clubbing. No ascites. Pulses: Dorsalis pedis and posterior tibial pulses +1 to +2 both sides. ABDOMEN: Soft. Non-tender. Bowel sounds active. No CVA tenderness. No mass felt. EXTREMITIES: Trace bilateral pedal edema. Full range of motion of all extremities, equal. NEUROLOGIC: No focal deficit. Cranial nerves II through XII are grossly intact. No headache. No double vision. SKIN: Not dry. Intact. Turgor-normal. LYMPHATIC: No palpable lymph nodes/no lymphedema. MUSCULOSKELETAL: Normal joints with no swelling. Muscle tone is normal. LAB REVIEW: 04/30/22 05:18 04/30/22 05:18 04/30/22 05:18: Sodium 133.7 L, Potassium 4.34, Chloride 104.9, Carbon Dioxide 24.9, Anion Gap 8.24, BUN 44.1 H, Creatinine 1.36 H, Estimated GFR (MDRD) 50.00, BUN/Creatinine Ratio 32.42, Glucose 162.5 H, Calcium 9.20, Total Bilirubin 0.55, AST 17.3, ALT 17.9, Alkaline Phosphatase 63.4, Total Protein 6.11 L, Albumin 3.50, Globulin 2.61, Albumin/Globulin Ratio 1.34 04/30/22 05:18: WBC 5.61, RBC 3.89 L, Hgb 11.8 L, Hct 36.2 L, MCV 93.1, MCH 30.3, MCHC 32.6, RDW Coeff of Edita 15.2 H, Plt Count 172, Neutrophils % (Manual) 89.0 H, Lymphocytes % (Manual) 8.0 L, Monocytes % (Manual) 3.0, Anisocytosis Not present ASSESSMENT: Please see below. 1. Acute CHF- improved. 2. Atrial fibrillation. 3. Small amount of ascites. 4. Diabetes mellitus type 2. 5. COPD. PLAN: 1. Continue Cardizem 90 mg p.o. b.i.d. 2. Will continue with increase in Aldactone 25 mg b.i.d. 3. No need for antibiotics 4. Prednisone 10 mg p.o. daily times 5 days. 5. Decrease Allopurinol. 6. All other medications to remain as they are here in hospital. 7. Medication compliance and its importance discussed with the patient. 8. Discharge home and will see in office next week. Plan and coordination of the patient's care discussed in the presence of Investment Banking Analyst and nurse. EDUCATION: Discussed the importance of medication compliance with the patient. CONDITION: Stable. SCRIBED BY: ANDRESSA THORPE Kettleman scribed while in presence of service performed by Dr. Robertson/Wendie Morrison APRN on 04/30/22 ([id number])
--- NOTE | 2022-04-30 16:16 | PN ---
DATE OF SERVICE: 04/29/22 SUBJECTIVE: The patient was examined this morning. The patient wants to go home. Condition has improved steadily. REVIEW OF SYSTEMS: CONSTITUTIONAL: No night sweats. No fatigue, malaise, lethargy. No fever or chills. Patient oriented to time, place and person. HEENT: Eyes: No visual changes. No eye pain. No eye discharge. ENT: No runny nose. No epistaxis. No sinus pain. No sore throat. No odynophagia. No congestion. RESPIRATORY: No cough, no congestion. No hemoptysis. No shortness of breath. CARDIOVASCULAR: No angina symptoms. No CHF symptoms. No atypical chest pain for CAD. No palpitations. No PND. No orthopnea. GASTROINTESTINAL: No abdominal pain. No nausea or vomiting. No diarrhea or constipation. No hematemesis. No hematochezia. GENITOURINARY: No urgency. No frequency. No dysuria. No hematuria. No obstructive symptoms. No discharge. No pain. No significant abnormal bleeding. MUSCULOSKELETAL: No musculoskeletal pain; no joint swelling. NEUROLOGICAL: No headache. No neck pain. No syncope. No seizures. No dizziness. PSYCHIATRIC: Not anxious. No depression. No suicidal thoughts. No homicidal thoughts. SKIN: No rash. No lesions. No wounds. ENDOCRINE: No unexplained weight loss. No weight gain. HEMATOLOGIC/LYMPHATIC: No anemia. No purpura. No petechiae. No prolonged or excessive bleeding. No palpable lymph nodes. PHYSICAL EXAMINATION: GENERAL: The patient is , lying/sitting in bed in no distress. HEENT: Head normocephalic, atraumatic. Eyes: Extraocular muscles are intact. Pupils are equal, round and reactive to light and accommodation. Ears: No lesions. Nose appeared normal. Throat: No exudate or erythema. NECK: Supple. No JVD, no carotid bruit. No lymphadenopathy or thyromegaly. LUNGS: Decreased breath sounds especially at the bases. Air entry better than when he came in. Percussion note normal. Chest symmetrical. HEART: S1, S2, no S3. No murmurs. No cyanosis or clubbing. No ascites. Pulses: Dorsalis pedis and posterior tibial pulses +1 to +2 bilaterally. ABDOMEN: Soft. Nontender. Bowel sounds active. No CVA tenderness. No mass felt. EXTREMITIES: Leg swelling noted more than yesterday. Pitting edema. Full range of motion of all extremities, equal. NEUROLOGIC: No focal deficit. Cranial nerves II through XII are grossly intact. No headache. No double vision. SKIN: Not dry. Intact. Turgor - normal. LYMPHATIC: No palpable lymph nodes/no lymphedema. MUSCULOSKELETAL: Normal joints with no swelling. Muscle tone is normal. ASSESSMENT: 1. Pneumonia, seems to have resolved clinically. Patient doesn't have any cough, congestion or fever 2. CHF seems to be under control and education carried out including daughters. l He was advised to cut down on salt and elevate the legs. He keeps his leg hanging and doesn't watch his diet and has a lot of salt in it. He also doesn't take some of the medications. Prognosis: Guarded TIME SPENT: More than 30 minutes. Plan and coordination of the patient's care discussed in the presence of nurse. CRISTEL
--- NOTE | 2022-05-01 06:55 | PN ---
DATE OF SERVICE: 04/28/22 SUBJECTIVE: 82-year-old white male hospitalized with pneumonia and CHF together. The patient's condition has improved remarkably. Practically there is no cough. He is breathing better, able to walk, still unsteady gait. Some weakness but no fever, no chills, no cough, no congestion. REVIEW OF SYSTEMS: CONSTITUTIONAL: No night sweats. No fatigue, malaise, lethargy. No fever or chills. HEENT: Eyes: No visual changes. No eye pain. No eye discharge. ENT: No runny nose. No epistaxis. No sinus pain. No sore throat. No odynophagia. No congestion. RESPIRATORY: No cough, no congestion. No hemoptysis. No shortness of breath. CARDIOVASCULAR: No angina symptoms. No CHF symptoms. No atypical chest pain for CAD. No palpitations. No PND. No orthopnea. GASTROINTESTINAL: No abdominal pain. No nausea or vomiting. No diarrhea or constipation. No hematemesis. No hematochezia. GENITOURINARY: No urgency. No frequency. No dysuria. No hematuria. No obstructive symptoms. No discharge. No pain. No significant abnormal bleeding. MUSCULOSKELETAL: No musculoskeletal pain; no joint swelling. NEUROLOGICAL: No headache. No neck pain. No syncope. No seizures. No dizziness. PSYCHIATRIC: Not anxious. No depression. No suicidal thoughts. No homicidal thoughts. SKIN: No rash. No lesions. No wounds. ENDOCRINE: No unexplained weight loss. No weight gain. HEMATOLOGIC/LYMPHATIC: No anemia. No purpura. No petechiae. No prolonged or excessive bleeding. No palpable lymph nodes. PHYSICAL EXAMINATION: VITAL SIGNS: Temperature 97.8, pulse 100, respiratory rate 18, BP 150/90, pulse ox 96% on room air. HEENT: Head normocephalic, atraumatic. Eyes: Extraocular muscles are intact. Pupils are equal, round and reactive to light and accommodation. Ears: No lesions. Nose appeared normal. Throat: No exudate or erythema. NECK: Supple. No JVD, no carotid bruit. No lymphadenopathy or thyromegaly. LUNGS: Decreased breath sounds but clear. A few crepitations, dry present at the bases. Percussion note normal. Chest symmetrical. HEART: S1, S2, no S3. No murmurs. No cyanosis or clubbing. No ascites. Pulses: Dorsalis pedis and posterior tibial pulses +1 to +2 bilaterally. ABDOMEN: Soft. Nontender. Bowel sounds active. No CVA tenderness. No mass felt. EXTREMITIES: Trace edema. Full range of motion of all extremities, equal. NEUROLOGIC: No focal deficit. Cranial nerves II through XII are grossly intact. No headache. No double vision. SKIN: Not dry. Intact. Turgor - normal. LYMPHATIC: No palpable lymph nodes/no lymphedema. MUSCULOSKELETAL: Normal joints with no swelling. Muscle tone is normal. LABS: Hemoglobin 11.8, hematocrit 37, WBC 7,800, normal differential. Creatinine 1.4, BUN 34, potassium 4.2. ASSESSMENT: 1. Pneumonitis seems to be resolving or almost has resolved. 2. CHF under control. PLAN: 1. Educate patient about CHF which was done in detail and has been done the past several times. 2. Continue antibiotics in the form of p.o. antibiotic. 3. DC IV Rocephin. 4. The patient will be on Omnicef 300 mg p.o. twice a day. 5. Continue the rest of the medications as before. 6. Will monitor systolic blood pressure. Would like to keep it in the range of 130 to 140. CONDITION: Otherwise stable. TIME SPENT: More than 30 minutes. Plan and coordination of the patient's care discussed in the presence of nurse. CRISTEL
--- NOTE | 2022-05-03 12:48 | PN ---
DATE OF SERVICE: 04/30/22 SUBJECTIVE: The patient was seen and examined with the nurse practitioner 04/30/22. The patient's condition has improved. No evidence of any pneumonitis or CHF at the present time. REVIEW OF SYSTEMS: CONSTITUTIONAL: No night sweats. No fatigue, malaise, lethargy. No fever or chills. HEENT: Eyes: No visual changes. No eye pain. No eye discharge. ENT: No runny nose. No epistaxis. No sinus pain. No sore throat. No odynophagia. No congestion. RESPIRATORY: No cough, no congestion. No hemoptysis. No shortness of breath. CARDIOVASCULAR: No angina symptoms. No CHF symptoms. No atypical chest pain for CAD. No palpitations. No PND. No orthopnea. GASTROINTESTINAL: No abdominal pain. No nausea or vomiting. No diarrhea or constipation. No hematemesis. No hematochezia. GENITOURINARY: No urgency. No frequency. No dysuria. No hematuria. No obstructive symptoms. No discharge. No pain. No significant abnormal bleeding. MUSCULOSKELETAL: No musculoskeletal pain; no joint swelling. NEUROLOGICAL: No headache. No neck pain. No syncope. No seizures. No dizziness. PSYCHIATRIC: Not anxious. No depression. No suicidal thoughts. No homicidal thoughts. SKIN: No rash. No lesions. No wounds. ENDOCRINE: No unexplained weight loss. No weight gain. HEMATOLOGIC/LYMPHATIC: No anemia. No purpura. No petechiae. No prolonged or excessive bleeding. No palpable lymph nodes. PHYSICAL EXAMINATION: HEENT: Head normocephalic, atraumatic. Eyes: Extraocular muscles are intact. Pupils are equal, round and reactive to light and accommodation. Ears: No lesions. Nose appeared normal. Throat: No exudate or erythema. NECK: Supple. No JVD, no carotid bruit. No lymphadenopathy or thyromegaly. LUNGS: Decreased breath sounds with crepitations at the bases otherwise good air entry. HEART: S1, S2, no S3. No murmurs. No cyanosis or clubbing. No ascites. Pulses: Dorsalis pedis and posterior tibial pulses +1 to +2 bilaterally. ABDOMEN: Soft. Nontender. Bowel sounds active. No CVA tenderness. No mass felt. EXTREMITIES: No edema. Full range of motion of all extremities, equal. NEUROLOGIC: No focal deficit. Cranial nerves II through XII are grossly intact. No headache. No double vision. SKIN: Not dry. Intact. Turgor - normal. LYMPHATIC: No palpable lymph nodes/no lymphedema. MUSCULOSKELETAL: Normal joints with no swelling. Muscle tone is normal. The patient has no symptoms of CHF or CAD. His problem is compliance. The patient is advised to cut down on salt intake. Elevate the legs whenever he sits down. He is to take medications on a regular basis. Education about CHF carried out. CONDITION: Stable TIME SPENT: More than 30 minutes. Plan and coordination of the patient's care discussed in the presence of nurse. CRISTEL
--- NOTE | 2022-05-03 12:50 | PN ---
CODING FOR BILLIN04/24/22 ADMISSION DAY LEVEL 5 04/25/22 EXTENSIVE 04/26/22 INTERMEDIATE 04/27/22 INTERMEDIATE 04/28/22 INTERMEDIATE 04/29/22 INTERMEDIATE 04/30/22 FINAL DAY D IN DISCHARGE MTDD
== END 2022-04-30 10:45 | disposition home or self-care (01) | DRG 291 ==
LOC: ED 12:56 → MEDSURG A 16:03
PROVIDERS: ADMIT Internal Medicine; ATTEND Internal Medicine
DX: I48.91 Unspecified atrial fibrillation; M13.0 Polyarthritis, unspecified; Z51.81 Encounter for therapeutic drug level monitoring; J44.1 Chronic obstructive pulmonary disease with (acute) exacerbation; R06.02 Shortness of breath; I13.0 Hypertensive heart and chronic kidney disease with heart failure and stage 1 through stage 4 chronic kidney disease, or unspecified chronic kidney disease; Z79.84 Long term (current) use of oral hypoglycemic drugs; R60.9 Edema, unspecified; E11.22 Type 2 diabetes mellitus with diabetic chronic kidney disease; N18.9 Chronic kidney disease, unspecified; I12.9 Hypertensive chronic kidney disease with stage 1 through stage 4 chronic kidney disease, or unspecified chronic kidney disease; Z79.899 Other long term (current) drug therapy; E78.5 Hyperlipidemia, unspecified; Z79.01 Long term (current) use of anticoagulants; I50.9 Heart failure, unspecified; J18.9 Pneumonia, unspecified organism; Z20.822 Contact with and (suspected) exposure to COVID-19; Z86.73 Personal history of transient ischemic attack (TIA), and cerebral infarction without residual deficits; I27.20 Pulmonary hypertension, unspecified

== ENCOUNTER 2023-03-14 14:07 | Observation (INO) ==
[2023-03-14] MEDS ORDERED: ASPIRIN CHEWABLE PO ONE (14:13)
[2023-03-14 14:17] VITALS: BMI 24.3
--- NOTE | 2023-03-14 14:24 | ED.PDOC ---
General ED Provider: Dr. YASMINE RUIZ DO Chief Complaint: Chest Pain Stated Complaint: Patient is a 83 yo M here for chest pressure and LUE numbness Patient reports onset 9 am after big thanksgiving breakfast He has a pmh afib on eliqus, CVA, CHF, DM2 Patient denies chest pain He reports CARRANZA No falls or injuries No sick contacts No hemoptysis No diaphoresis Patient unsure if he has had a IA "Ask my PCP Dr. Disla." Patient speaking in full senteces on room air spo2 96% Last echocardiogram 04/12 LVEF 35-40% Time Seen by Provider: 03/14/23 14:10 Information Source: Patient Primary Care Provider: DANILO DISLA MD Nursing and Triage Documentation Reviewed and Agree: Yes Review of Systems Review Of Systems Constitutional: Denies Chills or Fever Eyes: Denies Foreign body sensation or Inflammation Ears, Nose, Mouth, Throat: Denies Ear pain or Loose teeth Respiratory: Denies Cough or Wheezing Cardiac: Reports Other (chest pressure +); Denies Palpitations or Syncope GI: Denies Constipated or Diarrhea : Denies Burning or Dysuria Musculoskeletal: Denies Back pain or Neck pain Skin: Denies Rash or Cyanosis Neurological: Reports Other (LUE numbness); Denies Anxiety or Depressed Endocrine: Denies Excessive sweating or Flushing Hematologic/Lymphatic: Reports No symptoms All Other Systems: Reviewed and Negative [facility] Medical History Basal cell adenocarcinoma C44.91 - Basal cell carcinoma of skin, unspecified (ICD-10) Osteoarthritis of left knee M17.12 - Unilateral primary osteoarthritis, left knee (ICD-10) Hip fx S72.009A - Fracture of unspecified part of neck of unspecified femur, initial encounter for closed fracture (ICD-10) Renal insufficiency N28.9 - Disorder of kidney and ureter, unspecified (ICD-10) Bilateral pneumonia J18.9 - Pneumonia, unspecified organism (ICD-10) Hypoxemia R09.02 - Hypoxemia (ICD-10) Hypokalemia E87.6 - Hypokalemia (ICD-10) Acute exacerbation of CHF (congestive heart failure) I50.9 - Heart failure, unspecified (ICD-10) Diabetes mellitus E11.9 - Type 2 diabetes mellitus without complications (ICD-10) Esophageal dilatation K22.89 - Other specified disease of esophagus (ICD-10) Osteoarthritis of right knee M17.11 - Unilateral primary osteoarthritis, right knee (ICD-10) Polyarthritis M13.0 - Polyarthritis, unspecified (ICD-10) Gout M10.9 - Gout, unspecified (ICD-10) TIA (transient ischemic attack) G45.9 - TRANSIENT CEREBRAL ISCHEMIC ATTACK, UNSPECIFIED (ICD-10) Family History Mother Ovarian cancer BROTHER Heart transplanted Social History Smoking and tobacco status: Former smoker Tobacco: How many years used: 20 How long ago did patient quit smoking: quit 1974 Alcohol intake: never Substance use type: does not use Special rasheed needs: No Agree to transfusion: Yes Adopted: No Caregiver/support person: No Foster care: No Household members: spouse Housing: house Marital status: M Lives independently: Yes Daycare: no daycare Number of children: 3 Highest education level completed: Associate degree: occupational, technical, vocational program service: Yes ([employer]) assisted: No Current occupational status: retired Pets and animals: Yes History of recent travel: No Do you think of yourself as: straight/heterosexual Current gender identity: male Seatbelt use: always Drives intoxicated or rides with intoxicated 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 Current diet type/program: diabetic Water heater temperature set < 120 degrees: Yes Working smoke detector in home: Yes Fire extinguisher in home: Yes Carbon monoxide detector in home: Yes Surgical History H/O cervical spine surgery Z98.890 - Other specified postprocedural states (ICD-10) History of right hip replacement Z96.641 - Presence of right artificial hip joint (ICD-10) Physical Exam Physical Exam Appearance: Reports Well-appearing, Well-nourished and Obese Ill-appearing: Not Applicable Pain Distress: Not Applicable Eyes: Reports GINO, EOMI and Conjunctiva clear ENT: Reports Ears normal, Nose normal and Oropharynx normal Neck: Supple Respiratory: Reports Airway patent, Breath sounds clear and Breath sounds equal; Denies Wheezes Cardiovascular: Reports RRR and Pulses normal GI/: Reports Soft and Nontender Musculoskeletal: Reports Normal strength and ROM intact Skin: Reports Warm and Dry Neurological: Reports Sensation intact and Motor intact Psychiatric: Reports Affect appropriate and Mood appropriate Interpretation EKG Interpretation Time of EKG #1: 14:24 Interpretation: sinus bradycardia rate 58 no stemi, pvc present, qtc 481 Radiology Interpretation Radiology Interpretation By: ED Physician Radiology Results: Negative Exam Interpreted: CXR Xray Comments: No pneumothorax no ari consolidation Critical Care Note Critical Care Note Total Critical Care Time (mins): 0 Course Course 03/14/23 14:20 03/14/23 14:20 Orders, Labs, Meds: Lab Review 03/14/23 03/14/23 14:20 16:00 WBC 8.45 RBC 4.04 L Hgb 12.9 L Hct 39.3 L MCV 97.3 H MCH 31.9 H MCHC 32.8 RDW Coeff of Edita 13.0 Plt Count 227 Immature Gran % (Auto) 0.6 Neut % (Auto) 66.4 Lymph % (Auto) 22.7 [place] % (Auto) 7.3 Eos % (Auto) 2.8 Baso % (Auto) 0.2 Neut # (Auto) 5.6 Lymph # (Auto) 1.9 [place] # (Auto) 0.6 Eos # (Auto) 0.2 Baso # (Auto) 0.0 Immature Gran # (Auto) 0.1 Sodium 135.3 Potassium 5.05 Chloride 103.9 Carbon Dioxide 19.8 L Anion Gap 16.65 BUN 39.7 H Creatinine 2.20 H Estimated GFR (MDRD) 29.00 BUN/Creatinine Ratio 18.04 Glucose 201.0 H Lactic Acid 3.52 H Calcium 9.53 Total Bilirubin 0.36 AST 22.7 ALT 18.7 Alkaline Phosphatase 81.9 Troponin I < 0.012 < 0.012 NT-Pro-B Natriuret Pep 3490 H Total Protein 7.28 Albumin 4.19 Globulin 3.09 Albumin/Globulin Ratio 1.35 Influ A Molecular Assay Negative by naat Influ B Molecular Assay Negative by naat RSV Antigen Negative by naat SARS CoV-2 RNA Rapid DIMITRIS Negative Orders Category Date Time Status OBSERVATION [PLACE PATIENT OBSERVATION] .TO [facility] ADMISSION 03/14/23 16:41 Active (MONITORED BED) ECHOCARDIOGRAM 2D-M MODE Routine CARDIO 03/14/23 16:42 Ordered EKG-(ED ONLY) Stat CARDIO 03/14/23 14:09 Completed EKG-(IP & OP ONLY) Routine CARDIO 03/15/23 06:00 Ordered INTAKE & OUTPUT Q8HR CARE 03/14/23 16:42 Active NPO REMINDER: LAB TEST ONCE CARE 03/14/23 16:45 Active TELEMETRY MONITORING TELE CARE 03/14/23 16:41 Active VITAL SIGNS Q8HR CARE 03/14/23 16:42 Active CBC W/ AUTO DIFF DAILY@0600 LAB 03/15/23 06:00 Ordered CBC W/ AUTO DIFF DAILY@0600 LAB 03/16/23 06:00 Ordered CBC W/ AUTO DIFF Stat LAB 03/14/23 14:20 Completed COMPREHENSIVE METABOLIC PANEL DAILY@0600 LAB 03/15/23 06:00 Ordered COMPREHENSIVE METABOLIC PANEL DAILY@0600 LAB 03/16/23 06:00 Ordered COMPREHENSIVE METABOLIC PANEL Stat LAB 03/14/23 14:20 Completed FLU A & B MOLECULAR [FLU A/B MOLECULAR] Stat LAB 03/14/23 14:20 Completed HEMOGLOBIN A1C Routine LAB 03/15/23 06:00 Ordered LACTIC ACID Stat LAB 03/14/23 14:20 Completed LIPID PANEL Routine LAB 03/15/23 06:00 Ordered NT-PROBNP(ED) Stat LAB 03/14/23 14:20 Completed RSV Stat LAB 03/14/23 14:20 Completed SARS COV-2 RNA RAPID DIMITRIS Stat LAB 03/14/23 14:20 Completed TROPONIN I Q6H LAB 03/14/23 22:00 Ordered TROPONIN I Q6H LAB 03/15/23 04:00 Ordered TROPONIN I Stat LAB 03/14/23 14:20 Completed TROPONIN I Stat LAB 03/14/23 16:00 Completed Acetaminophen [Tylenol] Meds 03/14/23 16:42 Active 650 mg PO Q4H PRN Aspirin [Aspirin Chewable] Meds 03/14/23 14:13 Discontinued 324 mg PO ONCE ONE Aspirin [Aspirin EC] Meds 03/15/23 08:30 Active 81 mg PO 0830 Ondansetron HCl/Pf [Zofran 4 mg/2 ml] Meds 03/14/23 16:47 Active 4 mg IVP Q6H PRN CHEST, 1V AP ONLY Stat RADS 03/14/23 14:09 Completed Medications Generic Name Dose Route Start Last Admin Trade Name Freq PRN Reason Stop Dose Admin Acetaminophen 650 mg 03/14/23 16:42 Acetaminophen 325 Mg Tablet PO Q4H PRN FEVER/PAIN Aspirin 81 mg 03/15/23 08:30 Aspirin 81 Mg Tablet. PO 0830 MOMO Ondansetron HCl 4 mg 03/14/23 16:47 Ondansetron Hcl/Pf 4 Mg/2 Ml Sdv IVP Q6H PRN Nausea / Vomiting Discontinued Medications Generic Name Dose Route Start Last Admin Trade Name Freq PRN Reason Stop Dose Admin Aspirin 324 mg 03/14/23 14:13 03/14/23 14:23 Aspirin 81 Mg Tab.Chew PO 03/14/23 14:14 324 mg ONCE ONE Administration Vital Signs: Temp Pulse Resp BP Pulse Ox 03/14/23 14:12 97.5 F L 62 18 122/54 L 96 MDM: Patient is a 83 yo M here for chest pressure and LUE paresthesia Patient afebrile and vitally stable Hx from patient chart review by me Exam reassuring 3+ labs and 2 images reviewed by me He is anticoagulated for afib, His trop/delta trop are negative, EKG shows NSR with PVC I considered Dr. Maninder disla he recommends Hospitalist admission, WALLPAPER CONSULTANT Walker agrees Patient agrees WDX: Chest pain rule out myocardial infarction, elevated lactic acid and elevated bnp, discomfort acute on chronic moderate complexity DDX: I considered stmei, sepsis, covid 19 but these are less likely SDOH: Patient has PCP and family support Patient placed on observation patient stable All questions answered JORI Risk Score JORI Risk Score: Risk Score Odds of by 30D 0 0.1 (0.1-0.2) 1 0.3 (0.2-0.3) 2 0.4 (0.3-0.5) 3 0.7 (0.6-0.9) 4 1.2 (1.0-1.5) 5 2.2 (1.9-2.6) 6 3.0 (2.5-3.6) 7 4.8 (3.8-6.1) Discharge Plan Discharge Patient Disposition: PLACED OBSERVATION Discharge Problem: Elevated brain natriuretic peptide (BNP) level, Discomfort, Chest pressure, Elevated lactic acid level Did you review [place] CYBER SOFTWARE ENGINEER for ALL controlled substances?: Not Applicable ED Provider: YASMINE RUIZ Condition: Good Physician Progress Note: []
[2023-03-14 14:28] LABS: BASOPHILS % (AUTO) 0.2 % (0.0-3.0); EOSINOPHILS # (AUTO) 0.2 K/ul (0.0-0.7); EOSINOPHILS % (AUTO) 2.8 % (0.0-7.0); HEMATOCRIT 39.3 % (42.0-52.0); HEMOGLOBIN 12.9 g/dl (14.0-18.0); IMMATURE GRANULOCYTE # (AUTO) 0.1 (0.0-1.0); IMMATURE GRANULOCYTE % (AUTO) 0.6 % (0.0-5.0); LYMPHOCYTES # (AUTO) 1.9 K/uL (0.60-3.4); LYMPHOCYTES % (AUTO) 22.7 (10.0-50.0); MEAN CORPUSCULAR HEMOGLOBIN 31.9 pg (27.0-31.0); MEAN CORPUSCULAR HGB CONC 32.8 (31.8-35.4); MEAN CORPUSCULAR VOLUME 97.3 fl (80.0-94.0); MONOCYTES # (AUTO) 0.6 K/uL (0.4-2.0); MONOCYTES % (AUTO) 7.3 (0-10); NEUTROPHILS # (AUTO) 5.6 K/ul (2.0-6.9); NEUTROPHILS % (AUTO) 66.4 % (42.2-75.2); PLATELET COUNT 227 10^3/uL (140-440); RED BLOOD COUNT 4.04 10^6/ul (4.70-6.10); WHITE BLOOD COUNT 8.45 K/ul (4.2-10.2)
[2023-03-14 14:39] LABS: ALANINE AMINOTRANSFERASE 18.7 U/L (0-50); ALBUMIN 4.19 g/dL (3.5-5.0); ALKALINE PHOSPHATASE 81.9 U/L (56-119); ASPARTATE AMINO TRANSFERASE 22.7 U/L (17-59); BILIRUBIN,TOTAL 0.36 mg/dL (0.2-1.3); BLOOD UREA NITROGEN 39.7 mg/dL (9-20); CALCIUM 9.53 mg/dL (8.4-10.2); CARBON DIOXIDE 19.8 mmol/L (22-30.0); CHLORIDE 103.9 mmol/L (98-107); POTASSIUM 5.05 mmol/L (3.5-5.1); SODIUM 135.3 mmol/L (134.5-145); TOTAL PROTEIN 7.28 g/dL (6.3-8.2)
[2023-03-14 14:44] LABS: MOLECULAR FLU A NEGATIVE BY NAAT (NEGATIVE); MOLECULAR FLU B NEGATIVE BY NAAT (NEGATIVE); RSV MOLECULAR NEGATIVE BY NAAT (NEGATIVE); SARS COV-2 RNA RAPID NAAT NEGATIVE (NEGATIVE)
--- NOTE | 2023-03-14 14:51 | DI ---
EXAM: SINGLE VIEW CHEST XRAY. Date: 03/14/2023 Comparison: 04/24/2022 History: Symptomatic bradycardia Findings: A lower cervical ACDF is present but incompletely visualized. The lungs are hyperinflated. The lungs are clear. The cardiac silhouette is enlarged. The pulmonary vasculature is normal. VD is present. Impression: No acute intrathoracic findings. Emphysematous changes with cardiomegaly.
[2023-03-14 14:52] LABS: TROPONIN I < 0.012 ng/ml (0.0000-0.120)
[2023-03-14] MEDS ORDERED: TYLENOL PO PRN (16:42)
[2023-03-14] MEDS ORDERED: ZOFRAN 4 MG/2 ML IVP PRN (16:47)
[2023-03-14] MEDS ORDERED: NORCO 5-325 PO PRN (18:28)
[2023-03-14] MEDS ORDERED: ULTRAM PO PRN (18:28)
[2023-03-14] MEDS: LOPRESSOR PO SCH (20:34)
[2023-03-14] MEDS: ENTRESTO 24 MG-26 MG TABLET PO SCH (20:34)
[2023-03-14] MEDS ORDERED: ALBUTEROL 0.083% NEB NEB PRN (20:34)
[2023-03-14] MEDS: ELIQUIS PO SCH (20:35)
[2023-03-14] MEDS: CARDIZEM PO SCH (20:35)
[2023-03-14] MEDS: ALDACTONE PO SCH (20:35)
[2023-03-15] MEDS: DUONEB NEB SCH ×4 (02:02→10:04)
[2023-03-15 04:17] LABS: BASOPHILS % (AUTO) 0.3 % (0.0-3.0); EOSINOPHILS # (AUTO) 0.3 K/ul (0.0-0.7); EOSINOPHILS % (AUTO) 3.6 % (0.0-7.0); HEMATOCRIT 38.1 % (42.0-52.0); HEMOGLOBIN 12.7 g/dl (14.0-18.0); IMMATURE GRANULOCYTE % (AUTO) 0.6 % (0.0-5.0); LYMPHOCYTES # (AUTO) 2.2 K/uL (0.60-3.4); MEAN CORPUSCULAR HEMOGLOBIN 31.8 pg (27.0-31.0); MEAN CORPUSCULAR HGB CONC 33.3 (31.8-35.4); MEAN CORPUSCULAR VOLUME 95.5 fl (80.0-94.0); MONOCYTES # (AUTO) 0.6 K/uL (0.4-2.0); MONOCYTES % (AUTO) 9.1 (0-10); NEUTROPHILS # (AUTO) 3.8 K/ul (2.0-6.9); NEUTROPHILS % (AUTO) 54.4 % (42.2-75.2); PLATELET COUNT 200 10^3/uL (140-440); RDW COEFFICIENT OF VARIATION 12.9 % (11.6-14.8); RED BLOOD COUNT 3.99 10^6/ul (4.70-6.10)
[2023-03-15 04:29] LABS: ALANINE AMINOTRANSFERASE 17.5 U/L (0-50); ALBUMIN 4.03 g/dL (3.5-5.0); ALKALINE PHOSPHATASE 81.2 U/L (56-119); ASPARTATE AMINO TRANSFERASE 23.4 U/L (17-59); BILIRUBIN,TOTAL 0.47 mg/dL (0.2-1.3); BLOOD UREA NITROGEN 40.1 mg/dL (9-20); CALCIUM 9.68 mg/dL (8.4-10.2); CARBON DIOXIDE 25.3 mmol/L (22-30.0); CHLORIDE 106.5 mmol/L (98-107); CHOLESTEROL 224.7 mg/dL (0-200); CREATININE 1.92 mg/dL (0.60-1.10); GLUCOSE 113.5 mg/dL (74-106); HDL CHOLESTEROL 29.7 mg/dL (35-60); POTASSIUM 4.61 mmol/L (3.5-5.1); SODIUM 136.9 mmol/L (134.5-145); TOTAL PROTEIN 7.14 g/dL (6.3-8.2)
[2023-03-15 05:35] VITALS: TEMP 97.7
[2023-03-15] MEDS ORDERED: LASIX TAB PO SCH (06:30)
[2023-03-15] MEDS ORDERED: PROTONIX PO SCH (07:00)
[2023-03-15] MEDS ORDERED: GLUCOPHAGE PO SCH (07:30)
[2023-03-15] MEDS ORDERED: ASPIRIN EC PO SCH (08:30)
[2023-03-15] MEDS: ENTRESTO 24 MG-26 MG TABLET PO SCH (08:47)
[2023-03-15] MEDS: CARDIZEM PO SCH (08:47)
[2023-03-15] MEDS: ELIQUIS PO SCH (08:48)
[2023-03-15] MEDS: LOPRESSOR PO SCH (08:48)
[2023-03-15] MEDS: ALDACTONE PO SCH (08:48)
[2023-03-15] MEDS ORDERED: ZYLOPRIM PO SCH (09:00)
[2023-03-15 10:28] VITALS: BP 119/50; PULSE 63; RESP 22
[2023-03-15] MEDS ORDERED: DECADRON IVP ONE (12:36)
[2023-03-15] MEDS ORDERED: NORFLEX IVP ONE (12:37)
--- NOTE | 2023-03-15 13:34 | PCM.SS ---
Provider Provider: JOHN MALLORY, [facility] ([facility]3]ist Group Admission Date Admission Date: 03/14/23 Discharge Date Discharge Date: 03/15/23 Primary Care Physician Primary Care Physician: DANILO ALDANA MD Chief Complaint Reason For Visit: CHEST PAIN R/O [place] History of Present Illness History of Present Illness: Admitted 03/14/23 17:08, this 83 year old /WHITE/M presented to the ER with complaints of chest pressure. Patient states he has had this pain off and on for "awhile". Describes it as if someone is sitting on his chest when attempting to walk. Reports going to the barn yesterday to feed his animals and got short of breath. Sat down on a bag of feed and rested for awhile and then drove his golf cart back to the house. States his checked his O2 sat which was 94-95% on RA. States that this is how he has felt in the past when he gets overloaded with fluid. Denies having any weight gain, has not required oxygen during his stay, denies any edema in his lower extremities, and has been taking his lasix as prescribed. Has a pmh of CHF with EF of 50% and COPD. Denies any fever, chills, N/V/D. BNP was 2000 but does not clinically appear overloaded. Vital signs stable. Admitted for chest pain r/o, serial troponins and echo. After patient's daughter arrived this afternoon, patient voiced complaints of neck pain that shoots down into his L hand. Denies any known injury but is still active working outside. [facility] Medical History Basal cell adenocarcinoma C44.91 - Basal cell carcinoma of skin, unspecified (ICD-10) Osteoarthritis of left knee M17.12 - Unilateral primary osteoarthritis, left knee (ICD-10) Hip fx S72.009A - Fracture of unspecified part of neck of unspecified femur, initial encounter for closed fracture (ICD-10) Renal insufficiency N28.9 - Disorder of kidney and ureter, unspecified (ICD-10) Bilateral pneumonia J18.9 - Pneumonia, unspecified organism (ICD-10) Hypoxemia R09.02 - Hypoxemia (ICD-10) Hypokalemia E87.6 - Hypokalemia (ICD-10) Acute exacerbation of CHF (congestive heart failure) I50.9 - Heart failure, unspecified (ICD-10) Diabetes mellitus E11.9 - Type 2 diabetes mellitus without complications (ICD-10) Esophageal dilatation 10/07 [place]y K22.89 - Other specified disease of esophagus (ICD-10) Osteoarthritis of right knee M17.11 - Unilateral primary osteoarthritis, right knee (ICD-10) Polyarthritis M13.0 - Polyarthritis, unspecified (ICD-10) Gout M10.9 - Gout, unspecified (ICD-10) TIA (transient ischemic attack) G45.9 - TRANSIENT CEREBRAL ISCHEMIC ATTACK, UNSPECIFIED (ICD-10) Surgical History H/O cervical spine surgery Z98.890 - Other specified postprocedural states (ICD-10) History of right hip replacement Pardeep Z96.641 - Presence of right artificial hip joint (ICD-10) Family History Mother Ovarian cancer BROTHER Heart transplanted Social History Smoking and tobacco status: Former smoker Tobacco: How many years used: 20 How long ago did patient quit smoking: quit 1974 Alcohol intake: never Substance use type: does not use Special rasheed needs: No Agree to transfusion: Yes Adopted: No Caregiver/support person: No Foster care: No Household members: spouse Housing: house Marital status: M Lives independently: Yes Daycare: no daycare Number of children: 3 Highest education level completed: Associate degree: occupational, technical, vocational program service: Yes ([employer]) MCC: No Current occupational status: retired Pets and animals: Yes History of recent travel: No Do you think of yourself as: straight/heterosexual Current gender identity: male Seatbelt use: always Drives intoxicated or rides with intoxicated driver service technician: No Current diet type/program: diabetic Water heater temperature set < 120 degrees: Yes Working smoke detector in home: Yes Fire extinguisher in home: Yes Carbon monoxide detector in home: Yes Medications Mecications: Medications at Discharge (Home Meds & RX) esomeprazole magnesium 20 mg capsule,delayed release (Nexium) 20 mg PO DAILY 04/25/22 apixaban 5 mg tablet (Eliquis) 5 mg PO BID #60 tabs 10/11/22 metoprolol tartrate 50 mg tablet 50 mg PO BID #60 tabs 10/11/22 sacubitril 49 mg-valsartan 51 mg tablet (Entresto) 1 tab PO BID #60 tabs 10/11/22 furosemide 40 mg tablet 40 mg PO QDAC #90 tabs 12/03/22 spironolactone 25 mg tablet (Aldactone) 25 mg PO BID #180 tabs 12/03/22 diltiazem HCl 60 mg tablet 90 mg (1.5 x 60 mg) PO BID #270 tabs 01/30/23 allopurinol 100 mg tablet 200 mg (2 x 100 mg) PO DAILY #60 tabs 02/11/23 tramadol 50 mg tablet 50 mg PO TID PRN Pain #90 tabs 03/04/23 hydrocodone 5 mg-acetaminophen 325 mg tablet 1 tab PO BID PRN PAIN #60 tabs 03/06/23 metformin 500 mg tablet 500 mg PO QDAY 03/14/23 orphenadrine citrate 100 mg tablet,extended release 100 mg PO BID PRN muscle spasm #14 tabs 03/15/23 Allergies Allergies Allergy/AdvReac Type Severity Reaction Status Date / Time atorvastatin [From Lipitor] AdvReac Mild soreness Verified 03/14/23 14:30 Adarccz-FWM-PwA Reductase AdvReac Mild muscle Verified 03/14/23 14:30 Inhibitor cramps oxycodone [From OxyContin] AdvReac made him Verified 03/14/23 14:30 hurt all over Penicillins AdvReac Rash Verified 03/14/23 14:30 norco AdvReac Mild made him Uncoded 03/14/23 14:30 hurt all over Review of Systems Constitutional: Reports No symptoms Head: Reports Normocephalic and Atraumatic Eyes: Reports No symptoms Ears: Reports No symptoms Nose: Reports No symptoms Mouth: Reports No symptoms Throat: Reports No symptoms Cardiovascular: Reports Chest Pressure (midsternal) Respiratory: Reports Shortness of air (on exertion) Gastrointestinal: Reports No symptoms Genitourinary: Reports No Symptoms Musculoskeletal: Reports Neck Pain Endocrine: Reports No symptoms Hematology: Reports No symptoms Immunology: Reports No symptoms Neurological: Reports No symptoms Psychiatric: Reports No symptoms Physical Examination Appearance: Positive Well-appearing, Well-nourished, No Apparent Distress and Alert and Oriented x3 Head: Positive Normocephalic and Atraumatic Eyes: Positive GINO Neck: Positive Supple and Non-Tender Heart: Positive RRR and No Murmurs Respiratory: Positive Airway patent, Breath Sounds Clear, Bilaterally and Breath Sounds Equal GI/: Positive Soft, Nontender, Bowel sounds normal and No Distention Extremities: Positive Pedal Pulses Palpable Bilaterally Neurological: Positive Sensation Intact, Motor Intact, Reflexes Intact, Alert and Oriented Psychiatric: Positive Normal Judgement and Normal Insight Vital Signs (Last 4 Hours) Vital Signs Last 4 Hours: Vital Signs: Last 4 Hours 03/15/23 10:00 03/15/23 10:00 03/15/23 11:00 Temperature 97.7 F Temperature Source Tympanic Pulse Rate 63 Respiratory Rate 22 H Blood Pressure 119/50 L Blood Pressure Mean 73 Blood Pressure Location Left Arm Blood Pressure Position Sitting O2 Sat by Pulse Oximetry 98 Oxygen Delivery Method Room Air Room Air Room Air 03/15/23 12:00 03/15/23 12:54 Temperature Temperature Source Pulse Rate Respiratory Rate Blood Pressure Blood Pressure Mean Blood Pressure Location Blood Pressure Position O2 Sat by Pulse Oximetry Oxygen Delivery Method Room Air Room Air Labs This Visit Labs This Visit: Labs This Visit 03/14/23 03/14/23 03/14/23 14:20 16:00 21:50 WBC 8.45 RBC 4.04 L Hgb 12.9 L Hct 39.3 L MCV 97.3 H MCH 31.9 H MCHC 32.8 RDW Coeff of Edita 13.0 Plt Count 227 Immature Gran % (Auto) 0.6 Neut % (Auto) 66.4 Lymph % (Auto) 22.7 [place] % (Auto) 7.3 Eos % (Auto) 2.8 Baso % (Auto) 0.2 Neut # (Auto) 5.6 Lymph # (Auto) 1.9 [place] # (Auto) 0.6 Eos # (Auto) 0.2 Baso # (Auto) 0.0 Immature Gran # (Auto) 0.1 Sodium 135.3 Potassium 5.05 Chloride 103.9 Carbon Dioxide 19.8 L Anion Gap 16.65 BUN 39.7 H Creatinine 2.20 H Estimated GFR (MDRD) 29.00 BUN/Creatinine Ratio 18.04 Glucose 201.0 H Hemoglobin A1c Lactic Acid 3.52 H Calcium 9.53 Total Bilirubin 0.36 AST 22.7 ALT 18.7 Alkaline Phosphatase 81.9 Troponin I < 0.012 < 0.012 0.013 NT-Pro-B Natriuret Pep 3490 H Total Protein 7.28 Albumin 4.19 Globulin 3.09 Albumin/Globulin Ratio 1.35 Triglycerides Cholesterol LDL Cholesterol, Calc VLDL Cholesterol HDL Cholesterol Cholesterol/HDL Ratio Influ A Molecular Assay Negative by naat Influ B Molecular Assay Negative by naat RSV Antigen Negative by naat SARS CoV-2 RNA Rapid DIMITRIS Negative 03/15/23 04:10 WBC 6.90 RBC 3.99 L Hgb 12.7 L Hct 38.1 L MCV 95.5 H MCH 31.8 H MCHC 33.3 RDW Coeff of Edita 12.9 Plt Count 200 Immature Gran % (Auto) 0.6 Neut % (Auto) 54.4 Lymph % (Auto) 32.0 [place] % (Auto) 9.1 Eos % (Auto) 3.6 Baso % (Auto) 0.3 Neut # (Auto) 3.8 Lymph # (Auto) 2.2 [place] # (Auto) 0.6 Eos # (Auto) 0.3 Baso # (Auto) 0.0 Immature Gran # (Auto) 0.0 Sodium 136.9 Potassium 4.61 Chloride 106.5 Carbon Dioxide 25.3 Anion Gap 9.71 BUN 40.1 H Creatinine 1.92 H Estimated GFR (MDRD) 34.00 BUN/Creatinine Ratio 20.88 Glucose 113.5 H D Hemoglobin A1c 6.31 H Lactic Acid Calcium 9.68 Total Bilirubin 0.47 AST 23.4 ALT 17.5 Alkaline Phosphatase 81.2 Troponin I < 0.012 NT-Pro-B Natriuret Pep Total Protein 7.14 Albumin 4.03 Globulin 3.11 Albumin/Globulin Ratio 1.29 Triglycerides 231.0 H Cholesterol 224.7 H LDL Cholesterol, Calc 149 VLDL Cholesterol 46 H HDL Cholesterol 29.7 L Cholesterol/HDL Ratio 7.6 H Influ A Molecular Assay Influ B Molecular Assay RSV Antigen SARS CoV-2 RNA Rapid DIMITRIS Imaging Imaging: EXAM: SINGLE VIEW CHEST XRAY. Date: 03/14/2023 Comparison: 04/24/2022 History: Symptomatic bradycardia Findings: A lower cervical ACDF is present but incompletely visualized. The lungs are hyperinflated. The lungs are clear. The cardiac silhouette is enlarged. The pulmonary vasculature is normal. ASVD is present. Impression: No acute intrathoracic findings. Emphysematous changes with cardiomegaly. Review Review Statement: I have independently reviewed and interpreted the labs/EKGs/imaging that were ordered by the ER provider. I have reviewed all outside records that are available currently in our EMR including imaging/notes/labs from previous visits. Plan Reccomendations/Plan: 1. Chest Pain - serial troponins ruled out and negative, echo completed and unchanged from previous, unable to complete stress test due to Dr. Maninder Aldana recommendation of sestamibe stress - will follow with him outpatient 2. Neck strain - decadron, norflex, and home pain medication given. Rx for norflex prn ordered. No changes made to current home medications. Additional Planning: Case discussed with ED Physician, Dr. Bolaños. DVT Prophylaxis: Eliquis Advanced Care Plannin minutes spent discussing advance care planning. Disposition: Admit to: Med/surg Observation DNR Discussed Plan of Care with Dr. Brittany Aldana. If patient discharged with Left Ventricular Systolic Dysfunction: NA Discharged with a beta patricia? [] If no, why not? [] Discharged with an tony/arb? [] If no, why not? [] DX: Cervical Strain Chronic CHF and COPD Diabetic Diet Activity as tolerated Follow-up with Dr. Aldana next week. Norflex BID PRN for muscle spasms Review With Patient Reviewed with Patient and Family: Patient and family have been counseled on condition and care plan and have no immediate questions. I have personally discussed and reviewed the patient's visit/current labs/imagi ng/decision making with Dr. Deedee Aldana, my supervising attending. Total number of minutes spent with patient 85 min. More than 50% of the time spent with this patient was devoted to counseling and coordination of care. Time of Admission:03/14/23 17:08 Time of Discharge: 03/15/2023 13:30 Discharge Plan Discharge Discharge Orders: Discharge Patient (ONCE); Ordered 03/15/23 Ordered By: GULSHAN GARCIA Activity Restrictions/Additional Instructions: Diabetic Diet Activity as tolerated Follow-up with Dr. Aldana next week. New Medication: Norflex twice a day as needed for neck pain/spasms Instructions: Chest Pain (GEN), Cervical Strain (GEN) Patient Disposition: HOME WITH FAMILY CARE Prescriptions: New orphenadrine citrate 100 mg tablet extended release 100 mg PO BID PRN (Reason: muscle spasm) Qty: 14 0RF Continued Eliquis 5 mg tablet 5 mg PO BID Qty: 60 5RF Rx Instructions: TAKE 1 TAB TWICE DAILY (AVOID ALL NSAIDS) metoprolol tartrate 50 mg tablet 50 mg PO BID Qty: 60 5RF Rx Instructions: TAKE 50MG TWICE DAILY Entresto 49-51 mg tablet 1 tab PO BID Qty: 60 5RF furosemide 40 mg tablet 40 mg PO QDAC Qty: 90 1RF spironolactone [Aldactone] 25 mg tablet 25 mg PO BID Qty: 180 1RF diltiazem HCl 60 mg tablet 90 mg PO BID Qty: 270 1RF tramadol 50 mg tablet 50 mg PO TID PRN (Reason: Pain) Qty: 90 2RF hydrocodone-acetaminophen 5-325 mg tablet 1 tab PO BID PRN (Reason: PAIN) Qty: 60 0RF Rx Instructions: [place] 5-325 esomeprazole magnesium [Nexium] 20 mg Capsule,Delayed Release(Dr/Ec) 20 mg PO DAILY metformin 500 mg tablet 500 mg PO QDAY Rx Instructions: TAKE 500MG DAILY allopurinol 100 mg tablet 200 mg PO DAILY Qty: 60 2RF Rx Instructions: TAKE 200MG DAILY Did you review [place] FREIGHT BOOKER for ALL controlled substances?: No Discussed opioids are addictive and Narcan is available by prescription or from pharmacy.: No Condition: Good
--- NOTE | 2023-03-17 12:40 | ECHO2D ---
Date of Exam: 03/15/2023 Ordering Physician: DR. DANILO ROBERTSON Room #: [id number] Reason for Echo: CHEST PRESSURE, HTN M-Mode Normal Adult Results LV Dimensions Normal Adult Results AoV Opening excursions >1.6 >1.6 LVEDD-base- 3.5-5.8 3.7 Ao root dimensions 2.0-3.7 3.3 LVESD-base- 3.1-4.6 L. Atrium dimensions 1.9-3.8 5.2 Post. Wall thickness 0.8-1.1 1.1 IV septum (thickness) 0.7-1.2 1.2 Post. Wall excursion 0.72-1.3 NORMAL Septal motion --- Systolic motion R. Ventricular cavity 1.5-2.0 5.0 LVEF 60% 46% Paradoxical septal wall motion YES 46% 2-D : 2-D M Mode --ENLARGED BIATRIAL CAVITIES--ENLARGED RIGHT VENTRICLE CAVITY, PARADOXICAL SEPTAL WALL MOTION, VALVES--NORMAL, NO EFFUSION, NO THROMBUS M-MODE: MV: NORMAL AV: NORMAL TV: NORMAL PV: CHAMBER SIZE: ENLARGED RIGHT ATRIAL, LEFT ATRIAL AND RIGHT VENTRICLE CAVITIES WALL MOTION: PARADOXICAL SEPTAL WALL MOTION PERICARDIUM: NORMAL INTERPRETATION: 1. 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 ENLARGED RIGHT VENTRICLE CAVITY AND RIGHT ATRIAL CAVITY 3. PARADOXICAL SEPTAL WALL MOTION 4. LEFT VENTRICLE SIZE-NORMAL, EJECTION FRACTION 46% (PARADOXICAL SEPTAL WALL) 5. NO EVIDENCE OF PULMONARY HYPERTENSION UNCHANGED 03/2022 [facility]
== END 2023-03-15 13:46 | disposition home or self-care (01) ==
LOC: MEDSURG B 14:07 → ED 14:07 → MEDSURG B 17:31
PROVIDERS: ADMIT Internal Medicine; ATTEND Nurse Practitioner Family